=== PATIENT | female | born 1965 | race Caucasian/White ===

== ENCOUNTER → 2017-01-24 | Outpatient (REF) | payer BC ==
[~2017-01-24] MED LIST: CYTO5TAB8 PO; LEVO175T2 PO; LIOT25TA PO
[2017-01-24 15:23] LABS: FREE T4 1.17 NG/DL (0.76-1.46)
== END ==
LOC: M LABDRAW1 13:20
PROVIDERS: ATTEND Physician Assistant Medical
DX: E89.0 Postprocedural hypothyroidism (principal)

== ENCOUNTER 2017-03-06 06:34 | Outpatient (CLI) | payer BC ==
[~2017-03-06] VITALS: Ht 165.1 cm; Wt 72.6 kg
[2017-03-06] MEDS ORDERED: NS 1,000 ML IV SCH (06:45)
--- NOTE | 2017-03-06 08:01 | ROOR ---
Patient Name: Zohra Richardson Procedure Date: 03/06/2017 7:30 AM Date of : 1965 Age: 51 Room: [facility] Gender: Female Note Status: Finalized Procedure: Total Colonoscopy to Cecum + Cold Snare Polypectomy + Hemoclip Indications: Screening for colorectal malignant neoplasm Providers: Chino Sims MD Referring MD: DUNCAN ERVIN MD Requesting Provider: Medicines: Monitored Anesthesia Care Complications: No immediate complications. Procedure: Pre-Anesthesia Assessment: - The heart rate, respiratory rate, oxygen saturations, blood pressure, adequacy of pulmonary ventilation, and response to care were monitored throughout the procedure. The Colonoscope was introduced through the anus and advanced to the cecum, identified by appendiceal orifice and ileocecal valve. The colonoscopy was performed without difficulty. The patient tolerated the procedure well. The quality of the bowel preparation was fair. Findings: The perianal and digital rectal examinations were normal. A small polyp was found at 30 cm proximal to the anus. The polyp was sessile. The polyp was removed with a cold snare. Resection and retrieval were complete. To prevent bleeding after the polypectomy, one hemostatic clip was successfully placed (MR conditional). There was no bleeding at the end of the procedure. The exam was otherwise without abnormality on direct and retroflexion views. Impression: - Preparation of the colon was fair. - One small polyp at 30 cm proximal to the anus, removed with a cold snare. Resected and retrieved. Clip (MR conditional) was placed. - The examination was otherwise normal on direct and retroflexion views. - The exam was otherwise normal to the cecum. Recommendation: - Patient has a contact number available for emergencies. The signs and symptoms of potential delayed complications were discussed with the patient. Return to normal activities tomorrow. Written discharge instructions were provided to the patient. - High fiber diet. - Discharge patient to home. - Continue present medications. - Await pathology results. - Telephone GI clinic for pathology results in 1 week. - Repeat colonoscopy for surveillance based on pathology results. - Return to referring physician. - The findings and recommendations were discussed with the patient's family. Chino Sims MD Chino Sims MD 03/06/2017 8:00:56 AM This report has been signed electronically. Number of Addenda: 0 Note Initiated On: 03/06/2017 7:30 AM Estimated Blood Loss: Estimated blood loss: none.
[2017-03-06 08:15] VITALS: BP 123/60
[2017-03-06] MEDS ORDERED: PROPOFOL 200 MG/20 ML VIAL As Ordered ONE (08:23)
== END 2017-03-06 08:34 | disposition home or self-care (01) ==
LOC: M OPP 06:34
PROVIDERS: ATTEND Internal Medicine Gastroenterology
DX: Z12.11 Encounter for screening for malignant neoplasm of colon (principal); D12.5 Benign neoplasm of sigmoid colon; E03.9 Hypothyroidism, unspecified; Z78.0 Asymptomatic menopausal state; Z87.891 Personal history of nicotine dependence; Z79.899 Other long term (current) drug therapy

== ENCOUNTER → 2017-07-26 | Outpatient (REF) | payer BC ==
[2017-07-26 12:30] LABS: FREE T4 1.36 NG/DL (0.76-1.46); THYROID STIMULATING HORMONE 0.053 uIU/ML (0.358-3.740)
== END ==
LOC: M LABDRAW1 11:24
DX: E89.0 Postprocedural hypothyroidism (principal)
CPT/HCPCS: 84443

== ENCOUNTER → 2017-12-08 | Outpatient (REF) | payer BC ==
[2017-12-08 11:17] LABS: FREE T4 0.98 NG/DL (0.76-1.46); THYROID STIMULATING HORMONE 0.058 uIU/ML (0.358-3.740)
== END ==
LOC: M LABDRAW1 09:50
DX: E89.0 Postprocedural hypothyroidism (principal)
CPT/HCPCS: 84443

== ENCOUNTER 2019-12-30 08:55 | Inpatient (IN) | payer BC ==
[~2019-12-30 08:55] MED LIST changes: -LIOT25TA PO; +LIOT25TA8 PO
[2019-12-30] MEDS ORDERED: VANCOMYCIN 1000MG/20ML VIAL ONE (09:42)
[2019-12-30] MEDS ORDERED: VANCOMYCIN 500MG/10ML VIAL ONE (10:47)
[2019-12-30] MEDS ORDERED: ACETAMINOPHEN 500 MG TAB ONE (10:47)
[2019-12-30] MEDS ORDERED: ACETAMINOPHEN 500 MG TAB As Ordered ONE (21:32)
[2019-12-30] MEDS ORDERED: VANCOMYCIN 1000MG/20ML VIAL As Ordered ONE (21:42)
[2019-12-30] MEDS ORDERED: VIAL MATE ADAPTER XX ONE (22:47)
[2019-12-30] MEDS ORDERED: VANCOMYCIN 500MG/10ML VIAL As Ordered ONE (22:47)
[2019-12-31] MEDS ORDERED: ACETAMINOPHEN TAB 650MG DOSE (2X325MG) As Ordered ONE ×3 (05:41→18:59)
[2019-12-31] MEDS ORDERED: LEVOTHYROXINE 137MCG TABLET (0.137MG) ONE (08:00)
[2019-12-31] MEDS ORDERED: LIOTHYRONINE 25 MCG TAB ONE (08:00)
[2019-12-31] MEDS ORDERED: ceFAZolin 2 GM/D5W 50 ML IV BAG (J0690 PER 500MG) ONE ×3 (09:00→18:00)
[2019-12-31] MEDS ORDERED: ENOXAPARIN 40MG/0.4ML SYRINGE (J1650 PER 10MG) As Ordered ONE (10:04)
[2019-12-31] MEDS ORDERED: VANCOMYCIN 1000MG/20ML VIAL As Ordered ONE ×2 (18:58→23:32)
[2020-01-01] MEDS ORDERED: ACETAMINOPHEN TAB 650MG DOSE (2X325MG) ONE (03:31)
[2020-01-01] MEDS ORDERED: ACETAMINOPHEN TAB 650MG DOSE (2X325MG) As Ordered ONE ×2 (03:31→20:20)
[2020-01-01] MEDS ORDERED: LIOTHYRONINE 25 MCG TAB ONE (09:00)
[2020-01-01] MEDS ORDERED: VANCOMYCIN 1000MG/20ML VIAL ONE ×2 (09:29→16:29)
[2020-01-01] MEDS ORDERED: VANCOMYCIN 1000MG/20ML VIAL As Ordered ONE ×2 (09:29→16:29)
[2020-01-01] MEDS ORDERED: ENOXAPARIN 40MG/0.4ML SYRINGE (J1650 PER 10MG) As Ordered ONE (09:29)
[2020-01-01] MEDS ORDERED: ISOVUE-370 76% 100ML VIAL As Ordered ONE (10:58)
[2020-01-01] MEDS ORDERED: ENOXAPARIN 100MG/1ML SYRINGE (J1650 PER 10MG) ONE (13:31)
[2020-01-01] MEDS ORDERED: ENOXAPARIN 100MG/1ML SYRINGE (J1650 PER 10MG) As Ordered ONE (13:31)
[2020-01-01] MEDS ORDERED: SUCRALFATE SUSP 1GM/10ML UD ONE ×2 (16:29→20:19)
[2020-01-01] MEDS ORDERED: SUCRALFATE SUSP 1GM/10ML UD As Ordered ONE ×2 (16:47→20:20)
[2020-01-01] MEDS ORDERED: PANTOPRAZOLE 40MG TAB (PROTONIX) As Ordered ONE (20:19)
[2020-01-01] MEDS ORDERED: PANTOPRAZOLE 40MG TAB (PROTONIX) ONE (20:19)
[2020-01-02] MEDS ORDERED: PANTOPRAZOLE 40MG TAB (PROTONIX) ONE (09:13)
[2020-01-02] MEDS ORDERED: PANTOPRAZOLE 40MG TAB (PROTONIX) As Ordered ONE (09:13)
[2020-01-02] MEDS ORDERED: SUCRALFATE SUSP 1GM/10ML UD ONE (09:13)
[2020-01-02] MEDS ORDERED: SUCRALFATE SUSP 1GM/10ML UD As Ordered ONE (09:13)
[2020-01-02] MEDS ORDERED: ceFAZolin 2 GM/D5W 50 ML IV BAG (J0690 PER 500MG) ONE (09:59)
[2020-01-26 17:24] LABS: ALBUMIN 3.7 GM/DL (3.2-5.2); ALT/SGPT 22 U/L (12-78); BILIRUBIN,DIRECT < 0.1 MG/DL (0.0-0.2); BILIRUBIN,TOTAL 0.3 MG/DL (0.2-1.0); BLOOD UREA NITROGEN 12 MG/DL (7-18); C REACTIVE PROTEIN QUANTITATIV 0.88 MG/DL (0.00-0.30); CALCIUM LEVEL 9.6 MG/DL (8.5-10.1); CARBON DIOXIDE LEVEL 28 MEQ/L (21-32); CHLORIDE LEVEL 108 MEQ/L (98-107); CREATININE FOR GFR 0.92 MG/DL (0.55-1.30); GLOMERULAR FILTRATION RATE > 60.0 (>51); GLUCOSE, FASTING 97 MG/DL (70-100); POTASSIUM SERUM 4.7 MEQ/L (3.5-5.1); SODIUM LEVEL 141 MEQ/L (136-145); TOTAL PROTEIN 7.3 GM/DL (6.4-8.2)
[2020-02-07 03:11] LABS: BASO % 0.3 % (0.0-1.0); EOS % 0.1 % (0.0-3.0); HEMATOCRIT 40.5 % (36.0-47.0); HEMOGLOBIN 13.4 g/dl (12.0-15.5); LYMPH # 1.1 10^3/uL (1.5-5.0); LYMPH % 14.9 % (24.0-44.0); MEAN CORPUSCULAR HEMOGLOBIN 29.6 pg (27.0-33.0); MEAN CORPUSCULAR HGB CONC 33.1 g/dl (32.0-36.5); MEAN CORPUSCULAR VOLUME 89.6 fl (80.0-96.0); MONO # 0.8 10^3/uL (0.0-0.8); MONO % 10.8 % (0.0-5.0); NEUTROPHILS # 5.6 10^3/uL (1.5-8.5); NEUTROPHILS % 73.8 % (36.0-66.0); PLATELET COUNT, AUTOMATED 226 10^3/uL (150-450); RED BLOOD COUNT 4.52 10^6/uL (4.00-5.40); WHITE BLOOD COUNT 7.5 10^3/uL (4.0-10.0)
[2020-02-11 01:07] LABS: HEMATOCRIT 40.3 % (36.0-47.0); HEMOGLOBIN 13.4 g/dl (12.0-15.5); MEAN CORPUSCULAR HEMOGLOBIN 29.6 pg (27.0-33.0); MEAN CORPUSCULAR HGB CONC 33.3 g/dl (32.0-36.5); MEAN CORPUSCULAR VOLUME 89.2 fl (80.0-96.0); PLATELET COUNT, AUTOMATED 186 10^3/uL (150-450); RED BLOOD COUNT 4.52 10^6/uL (4.00-5.40); WHITE BLOOD COUNT 7.5 10^3/uL (4.0-10.0)
[2020-02-13 19:07] LABS: BLOOD UREA NITROGEN 9 MG/DL (7-18); CALCIUM LEVEL 8.9 MG/DL (8.5-10.1); CARBON DIOXIDE LEVEL 23 MEQ/L (21-32); CHLORIDE LEVEL 108 MEQ/L (98-107); CREATININE FOR GFR 0.86 MG/DL (0.55-1.30); GLOMERULAR FILTRATION RATE > 60.0 (>51); GLUCOSE, FASTING 103 MG/DL (70-100); SODIUM LEVEL 139 MEQ/L (136-145)
[2020-02-18 08:23] LABS: ERYTHROCYTE SEDIMENTATION RATE 6 mm/hr (0-30)
--- NOTE | 2020-02-24 08:43 | REP ---
CT OF THE LEFT LOWER LEG WITH IV CONTRAST: HISTORY: Persistent cellulitis. Rule out abscess. COMPARISON: None available. CONTRAST DOSE: 100 ml of intravenous Isovue 370. FINDINGS: Helical scanning shows no evidence of soft tissue gas, abscess, opaque foreign body or acute bony destructive lesion. No erosive change or periosteal reaction is seen. There is a zone of dermal thickening and edema posteriorly in the subcutaneous fat in the left calf consistent with cellulitis. IMPRESSION: Findings consistent with cellulitis. No abscess, soft tissue gas, opaque foreign body or acute bony abnormality is seen. MTDD
[2020-03-22 21:09] LABS: BLOOD UREA NITROGEN 9 MG/DL (7-18); CALCIUM LEVEL 8.8 MG/DL (8.5-10.1); CARBON DIOXIDE LEVEL 24 MEQ/L (21-32); CHLORIDE LEVEL 111 MEQ/L (98-107); CREATININE FOR GFR 0.75 MG/DL (0.55-1.30); GLOMERULAR FILTRATION RATE > 60.0 (>51); GLUCOSE, FASTING 135 MG/DL (70-100); POTASSIUM SERUM 3.8 MEQ/L (3.5-5.1); SODIUM LEVEL 141 MEQ/L (136-145); VANCOMYCIN LEVEL TROUGH 17.4 UG/ML (10.0-20.0)
== END 2020-01-02 10:25 | disposition home or self-care (01) | DRG 383 ==
LOC: M ED 08:55 → M ED INP 23:31
PROVIDERS: ADMIT Internal Medicine; ATTEND Internal Medicine
DX: L03.116 Cellulitis of left lower limb (principal); E03.9 Hypothyroidism, unspecified; Z79.899 Other long term (current) drug therapy

== ENCOUNTER 2020-05-04 09:12 | Day surgery (SDC) | payer BC ==
[~2020-05-04] VITALS: Ht 166.4 cm; Wt 78.8 kg
[~2020-05-04 09:12] MED LIST changes: +NS 1,000 ML IV ONE
[2020-05-04] MEDS ORDERED: propofoL 200 MG/20 ML VIAL As Ordered ONE ×3 (09:21→11:01)
[2020-05-04] MEDS ORDERED: LIDOCAINE 2% 100MG/5ML SDV (FOR ANES.) As Ordered ONE (10:36)
--- NOTE | 2020-05-04 11:11 | ROOR ---
Patient Name: Zohra Richardson Procedure Date: 05/04/2020 10:20 AM Date of : 1965 Age: 54 Room: [facility] Gender: Female Note Status: Finalized Procedure: Total Colonoscopy to Cecum + Cold Snare Polypectomy + Hemoclips Indications: Screening in patient at increased risk: Family history of 1st-degree relative with colorectal cancer, High risk colon cancer surveillance: Personal history of colonic polyps, Last colonoscopy: 2016 Providers: Chino Sims MD Referring MD: Patsy PACE MD Requesting Provider: Medicines: Monitored Anesthesia Care Complications: No immediate complications. Procedure: Pre-Anesthesia Assessment: - The heart rate, respiratory rate, oxygen saturations, blood pressure, adequacy of pulmonary ventilation, and response to care were monitored throughout the procedure. The Colonoscope was introduced through the anus and advanced to the cecum, identified by appendiceal orifice and ileocecal valve. The colonoscopy was performed without difficulty. The patient tolerated the procedure well. The quality of the bowel preparation was good. Findings: The perianal and digital rectal examinations were normal. Non-bleeding internal hemorrhoids were found during retroflexion. The hemorrhoids were small and Grade I (internal hemorrhoids that do not prolapse). A small polyp was found at 30 cm proximal to the anus. The polyp was sessile. The polyp was removed with a cold snare. Resection and retrieval were complete. To prevent bleeding after the polypectomy, one hemostatic clip was successfully placed (MR conditional). There was no bleeding at the end of the procedure. A small polyp was found in the cecum. The polyp was sessile. The polyp was removed with a cold snare. Resection and retrieval were complete. To prevent bleeding after the polypectomy, one hemostatic clip was successfully placed (MR conditional). There was no bleeding at the end of the procedure. A large polyp was found in the proximal transverse colon. The polyp was sessile. The polyp was removed with a cold snare. Resection and retrieval were complete. To prevent bleeding after the polypectomy, five hemostatic clips were successfully placed (MR conditional). There was no bleeding at the end of the procedure. A small polyp was found in the hepatic flexure. The polyp was sessile. The polyp was removed with a cold snare. Resection and retrieval were complete. To prevent bleeding after the polypectomy, one hemostatic clip was successfully placed (MR conditional). There was no bleeding at the end of the procedure. The exam was otherwise without abnormality on direct and retroflexion views. Impression: - Non-bleeding internal hemorrhoids. - One small polyp at 30 cm proximal to the anus, removed with a cold snare. Resected and retrieved. Clip (MR conditional) was placed. - One small polyp in the cecum, removed with a cold snare. Resected and retrieved. Clip (MR conditional) was placed. - One large polyp in the proximal transverse colon, removed with a cold snare. Resected and retrieved. Clips (MR conditional) were placed. - One small polyp at the hepatic flexure, removed with a cold snare. Resected and retrieved. Clip (MR conditional) was placed. - The examination was otherwise normal on direct and retroflexion views. - The exam was otherwise normal to the cecum. Recommendation: - Patient has a contact number available for emergencies. The signs and symptoms of potential delayed complications were discussed with the patient. Return to normal activities tomorrow. Written discharge instructions were provided to the patient. - High fiber diet. - Discharge patient to home. - Continue present medications. - Await pathology results. - Telephone GI clinic for pathology results in 1 week. - Repeat colonoscopy in 1 year for surveillance based on pathology results. - Return to referring physician. - The findings and recommendations were discussed with the patient. Procedure Code(s): --- Professional --- 33252, Colonoscopy, flexible; with removal of tumor(s), polyp(s), or other lesion(s) by snare technique Diagnosis Code(s): --- Professional --- Z80.0, Family history of malignant neoplasm of digestive organs Z86.010, Personal history of colonic polyps K64.0, First degree hemorrhoids K63.5, Polyp of colon CPT copyright 2019 [employer]. All rights reserved. The codes documented in this report are preliminary and upon cellulose insulation helper review may be revised to meet current compliance requirements. Chino Sims MD Chino Sims MD 05/04/2020 11:11:35 AM Electronically signed by Chino Sims MD Number of Addenda: 0 Note Initiated On: 05/04/2020 10:20 AM Estimated Blood Loss: Estimated blood loss: none.
[2020-05-04 11:30] VITALS: BP 111/54
== END 2020-05-04 11:39 | disposition home or self-care (01) ==
LOC: M OPP 09:12
PROVIDERS: ATTEND Internal Medicine Gastroenterology
DX: Z12.11 Encounter for screening for malignant neoplasm of colon (principal); Z86.010 Personal history of colon polyps; Z80.0 Family history of malignant neoplasm of digestive organs; D12.6 Benign neoplasm of colon, unspecified; K64.0 First degree hemorrhoids; E03.9 Hypothyroidism, unspecified; Z79.899 Other long term (current) drug therapy
CPT/HCPCS: 45385; 88305; U0002

== ENCOUNTER → 2020-05-12 | Outpatient (CLI) | payer BC ==
[~2020-05-12] MED LIST changes: -NS 1,000 ML IV ONE
[2020-05-12 10:53] LABS: FREE T4 0.9 NG/DL (0.76-1.46); THYROID STIMULATING HORMONE 0.674 uIU/ML (0.358-3.740)
== END ==
LOC: M PLALAB 09:00
PROVIDERS: ATTEND Internal Medicine Endocrinology, Diabetes & Metabolism
DX: E89.0 Postprocedural hypothyroidism (principal)

== ENCOUNTER → 2020-11-22 | Outpatient (CLI) | payer BC ==
[~2020-11-22] MED LIST changes: +CYTO25TA6 PO; +SYNT137T7 PO
== END ==
LOC: M LABSMTC 09:56
PROVIDERS: ATTEND Anesthesiology
DX: Z01.818 Encounter for other preprocedural examination (principal); Z11.52 Encounter for screening for COVID-19

== ENCOUNTER 2020-11-27 09:45 | Day surgery (SDC) | payer BC ==
[~2020-11-27] VITALS: Ht 166.6 cm; Wt 70.7 kg
[~2020-11-27 09:45] MED LIST changes: +NS 1,000 ML IV ONE
[2020-11-27] MEDS ORDERED: LIDOCAINE 2% 100MG/5ML SDV (FOR ANES.) As Ordered ONE (11:26)
[2020-11-27] MEDS ORDERED: propofoL 200 MG/20 ML VIAL As Ordered ONE ×2 (11:26→11:36)
--- NOTE | 2020-11-27 11:50 | ROOR ---
Patient Name: Zohra Richardson Procedure Date: 11/27/2020 11:14 AM Date of : 1965 Age: 54 Room: [facility] Gender: Female Note Status: Finalized Procedure: Total Colonoscopy to Cecum + Cold Snare Polypectomy + Hemoclips Indications: High risk colon cancer surveillance: Personal history of colonic polyps, High risk colon cancer surveillance: Personal history of adenoma with villous component Providers: Chino Sims MD Referring MD: Patsy PACE MD Requesting Provider: Medicines: Monitored Anesthesia Care Complications: No immediate complications. Procedure: Pre-Anesthesia Assessment: - The heart rate, respiratory rate, oxygen saturations, blood pressure, adequacy of pulmonary ventilation, and response to care were monitored throughout the procedure. The Colonoscope was introduced through the anus and advanced to the terminal ileum, with identification of the appendiceal orifice and IC valve. The colonoscopy was performed without difficulty. The patient tolerated the procedure well. The quality of the bowel preparation was excellent. Findings: The perianal and digital rectal examinations were normal. Non-bleeding internal hemorrhoids were found during retroflexion. The hemorrhoids were small and Grade I (internal hemorrhoids that do not prolapse). A small polyp was found in the ascending colon. The polyp was sessile. The polyp was removed with a jumbo cold forceps. Resection and retrieval were complete. A large polyp was found in the proximal transverse colon. The polyp was sessile. The polyp was removed with a cold snare. Resection and retrieval were complete. To prevent bleeding after the polypectomy, three hemostatic clips were successfully placed (MR conditional). There was no bleeding at the end of the procedure. Two sessile polyps were found at 20 cm proximal to the anus. The polyps were small in size. These polyps were removed with a jumbo cold forceps. Resection and retrieval were complete. The exam was otherwise without abnormality on direct and retroflexion views. Impression: - Non-bleeding internal hemorrhoids. - One small polyp in the ascending colon, removed with a jumbo cold forceps. Resected and retrieved. - One large polyp in the proximal transverse colon, removed with a cold snare. Resected and retrieved. Clips (MR conditional) were placed. - Two small polyps at 20 cm proximal to the anus, removed with a jumbo cold forceps. Resected and retrieved. - The examination was otherwise normal on direct and retroflexion views. - The exam was otherwise normal to the cecum. Recommendation: - Patient has a contact number available for emergencies. The signs and symptoms of potential delayed complications were discussed with the patient. Return to normal activities tomorrow. Written discharge instructions were provided to the patient. - High fiber diet. - Discharge patient to home. - Continue present medications. - Await pathology results. - Telephone GI clinic for pathology results in 1 week. - Repeat colonoscopy for surveillance based on pathology results. - Return to referring physician. - The findings and recommendations were discussed with the patient's family. Procedure Code(s): --- Professional --- 86148, Colonoscopy, flexible; with removal of tumor(s), polyp(s), or other lesion(s) by snare technique 79421, 59, Colonoscopy, flexible; with biopsy, single or multiple Diagnosis Code(s): --- Professional --- K64.0, First degree hemorrhoids K63.5, Polyp of colon Z86.010, Personal history of colonic polyps CPT copyright 2019 [employer]. All rights reserved. The codes documented in this report are preliminary and upon coder operator review may be revised to meet current compliance requirements. Chino Sims MD Chino Sims MD 11/27/2020 11:50:06 AM Electronically signed by Chino Sims MD Number of Addenda: 0 Note Initiated On: 11/27/2020 11:14 AM Estimated Blood Loss: Estimated blood loss: none.
[2020-11-27 12:10] VITALS: BP 111/69
== END 2020-11-27 12:20 | disposition home or self-care (01) ==
LOC: M OPP 09:45
PROVIDERS: ATTEND Internal Medicine Gastroenterology
DX: Z12.11 Encounter for screening for malignant neoplasm of colon (principal); Z86.010 Personal history of colon polyps; Z80.0 Family history of malignant neoplasm of digestive organs; K63.5 Polyp of colon; K64.0 First degree hemorrhoids; Z79.899 Other long term (current) drug therapy; Z87.891 Personal history of nicotine dependence

== ENCOUNTER → 2021-03-22 | Outpatient (CLI) | payer BC ==
[~2021-03-22] MED LIST changes: -NS 1,000 ML IV ONE
[2021-03-22 14:12] LABS: FREE T4 0.93 NG/DL (0.76-1.46); THYROID STIMULATING HORMONE 0.047 uIU/ML (0.358-3.740)
== END ==
LOC: M PLALAB 09:18
PROVIDERS: ATTEND Nurse Practitioner Family
DX: E89.0 Postprocedural hypothyroidism (principal)

== ENCOUNTER → 2021-03-22 | Outpatient (CLI) | payer BC | LOC: M PLALAB 09:21 | PROVIDERS: ATTEND Student in an Organized Health Care Education/Training Program | DX: D50.9 Iron deficiency anemia, unspecified (principal) ==

== ENCOUNTER → 2021-04-16 | Outpatient (CLI) | payer BC ==
[~2021-04-16] MED LIST changes: +OMEP-221 PO
== END ==
LOC: M LABSMTC 12:11
PROVIDERS: ATTEND Anesthesiology
DX: Z01.818 Encounter for other preprocedural examination (principal); Z11.52 Encounter for screening for COVID-19

== ENCOUNTER 2021-04-21 11:59 | Day surgery (SDC) | payer BC ==
[~2021-04-21] VITALS: Ht 165.1 cm; Wt 75.3 kg
[~2021-04-21 11:59] MED LIST changes: +NS 1,000 ML IV ONE
--- OUTSIDE RECORDS SUMMARY | 2021-04-21 12:05 | CCD ---
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 Name Role Phone Gurmeet NAVARRO, Vanessa Unavailable [phone] Gisselle NAVARRO, Patsy [place] PP [phone] Reason for Referral No Reason for Referral Recorded Problems Includes: Active, inactive, and resolved Problems All Visits Onset Date - Time Resolved Date - Time Provider Co ndition Status Hypothyroidism 02/05/2020 - 2:41PM Patsy Pitts MD Active Note: Grave's disease, s/p r adioactive iodine, now hypothyroid Polyps Colon 02/05/2020 - 2:56PM Patsy Pitts MD A ctive Vaginitis Atrophic 02/05/2020 - 2:56PM Patsy ortiz MD Active Plan of Treatment Pending Tests Order Diagnosis Results Due Ordering Provi flynn Outside Labs Vit B12 Anemia, unspecified 03/18/21 Silvia almaraz [employer]ER PAD-C Future Appointments Date Time Location Provider followup 04/16/2021 9:00AM [facility] Silvia [place] [employer] ANNUAL PE-followup 05/11/2021 3:20PM [facility] Silvia [place] [employer] PAD-C Assessments Includes: Assessments for all patient encounters Findings Encounter Date Anemia CBC and CMP Problem visit - not contagious with Anjana BUSTAMANTEP-C 03/11/2021 Pancreatitis which is being considered pain has come and gone x 6 months with no acute excruciating pain. amylase and lipase Problem visit - not contagious with Silvia COLLINSC 03/11/2021 Peripheral neuropathy Hgb A1c to be drawn Problem vis it - not contagious with Silvia COLLINSC 03/11/2021 Atrophic vaginitis which is stable continue estradiol cream [Acute vaginitis] ANNUAL PE-followup exam/30 with Patsy Pitts MD 05/08/2020 Hypothyroidism which is stable Continue management per Dr. Levi. Assessment done by Silvia COLLINSS and Dr. Pitts RTC in 1 year for annual exam with fasting labs prior [Other specified hypothyroidism] ANNUAL PE-followup exam/30 with Patsy Pitts MD 05/08/2020 Polyps of colon Following with Dr. Kaleigh aragon, yearly colonoscopy [Polyp of colon] ANNUAL PE-followup exam/30 with Patsy Pitts MD Routine adult history and physical (18 - 64 yrs) Requests derm referral today, was previously following with group in [place] and would like to see them now in [place] [Encounter for general adult medical examination without abnormal findings] ANNUAL PE-followup exam/30 with Patsy Pitts MD Routine gynecological exam pap obtained today [Encounter for gynecological examination (general) (routine) without abnormal findings] ANNUAL PE-followup exam/30 with Patsy Pitts MD 05/08/2020 Atrophic vaginitis continue estradiol cream [Acute va ginitis] followup with Patsy Pitts MD 02/05/2020 Hypothyroidism Continue management per Dr. Levi. RTC in 3 months for annual exam with pap, fasting labs prior [Other specified hypothyroidism] followup with Patsy Pitts MD 02/05/2020 Polyps of colon Will refer to Dr. Levi pereyra for colonoscopy. Last colonoscopy 2017 [Polyp of colon] followup with Patsy Pitts MD 02/05/2020 Cellulitis of left lower leg , resolving . Was hospitalized at [facility] for 4 days on IV antibiotics. Have not recieved records as [facility] system is down and patient is unsure if it was MRSA or otherwise. She states they didn't seem to know or at least didn't tell her despite her asking. Currently infection is resolved with some leftover crusting at drainage sight. She is set to finish up her antibiotic this Monday. She will be establishing in our office with Dr Pitts when her records are received. Follow up as needed, monitor for signs of infection Transitional Care Management HIGH complexity with Elie Ruiz PA-C 01/07/2020 Instructions Instructions not supported for this document typeNo Instructions Recorded Medical Equipment - Implanted Devices Includes: Current and historical DevicesNo Medical Equipment Recorded Medications Includes: Current and historical Medications Current Medications (continue as prescribed) Estradiol 0.1 MG/GM Vaginal Cream 02/05/2020 Provid er: Patsy Pitts MD Diagnosis: Insert 2g daily intravaginally for 1 wee ks, then gradually reduce to 1g for 1 week, then a maintenance dose of 1 g 1 to 3 times per week Liothyronine Sodium 25 MCG Oral Tablet 01/15/2020 P rovider: Liane Lobo LEAN FACILITATOR Diagnosis: Levothyroxine Sodium 137 MCG Oral Tablet 01/15/2020 Provider: Liane Lobo LEAN FACILITATOR Diagnosis: Medications Administered Includes: Administered Medications in patient's chartNo Administered Medications Recorded Vital Signs Includes: Vital Signs from 03/16/2020 through 03/16/2021 Vital Name 03/12/2021 08:47A 03/11/2021 03:27P 03/11/2021 03:22P 05/08/2020 02:39P Blood Pressure Sitting (mmHg) 148/78 170/92 122/78 Pulse Rate-Sitting (bpm) 78 60 56 Height (in) 63 63 63 Weight (lb) 167 171 Body Mass Index (kg/m2) 29.6 30.3 Body Surface Area (m2) 1.79 1.81 Results Includes: Results from 03/16/2020 through 03/16/2021 CBC [facility] Ordered by Silvia SANCHEZ on 03/12/[address] [place] [address], [address] Collected: 03/12/2021 Reported: 03/12/2021 13:24 tel : ext. 1500 GRAN# 4.0 /mm3 (2.5-7.5) None Note: Responsible Observer: KM GRAN% 74.1 % (50.0-75.0) None Note: Responsible Observer: KM HCT 36.7 % (37-47) L (Low) Note: Responsible Observer: KM HGB 11.9 g/dl (12.0-17.4) L (Low) Note: Responsible Observer: KM LY# 1.1 /mm3 (1.3-4.0) L (Low) Note: Responsible Observer: KM LY% 19.6 % (25-40.0) L (Low) Note: Responsible Observer: KM MCH 26.5 pg (27.0-34.0) L (Low) Note: Responsible Observer: KM MCHC 32.3 G/DL (30.0-35.0) None Note: Responsible Observer: KM MCV 82.1 um3 (76.0-94.0) None Note: Responsible Observer: KM MID# 0.3 /mm3 (0.1-0.7) None Note: Responsible Observer: KM MID% 6.3 % (3.0-7.0) None Note: Responsible Observer: KM MPV 10.4 um3 (8.0-15.0) None Note: Responsible Observer: KM PLT 232 /mm3 (150-440) None Note: Responsible Observer: KM RBC 4.48 /mm3 (4.00-5.50) None Note: Responsible Observer: KM RDW 18.3 % (13.0-15.0) H (High) Note: Responsible Observer: KM WBC 5.4 /mm3 (4.0-10.0) None Note: Responsible Observer: KM Reviewed by Silvia SANCHEZ on 2020; All test results are final unless otherwise noted. [facility] In-house [facility] Ordered by Silvia SANCHEZ on 03/12/[address] [place] [address], [facility] Collected: 03/12/2021 Reported: 03/12/2021 13:24 tel : ext. 1500 Albumin 3.8 g/dl (3.4-5.0) None Note: Responsible Observer: KM Alkaline Phos 78 IU/L (39-117) None Note: Responsible Observer: KM ALT 13 IU/L (4-40) None Note: Responsible Observer: KM AST 15 IU/L (4-37) None Note: Responsible Observer: KM Urea Nitrogen 12 mg/dl (6-20) None Note: Responsible Observer: KM Calcium 9.1 mg/dl (8.6-10.3) None Note: Responsible Observer: KM Chloride 107 mmol/L (96-108) None Note: Responsible Observer: KM CO2 23 mmol/L (23-31) None Note: Responsible Observer: KM Creatinine 0.6 mg/dl (0.5-1.2) None Note: Responsible Observer: KM EGFR - AfricanAm > 60 N/A (-) None Note: Responsible Observer: KM EGFR - Non AF AM > 60 N/A (-) None Note: Responsible Observer: KM Glucose 111 mg/dl (70-105) H (High) Note: Responsible Observer: KM Potassium 4.5 mmol/L (3.2-5.4) None Note: Responsible Observer: KM Sodium 142 mmol/L (133-145) None Note: Responsible Observer: KM Total Bilirubin 0.3 mg/dl (0.0-1.2) None Note: Responsible Observer: KM Total Protein 6.5 g/dl (6.0-8.0) None Note: Responsible Observer: KM Reviewed by Silvia SANCHEZ on 2020; All test results are final unless otherwise noted. Lipid Panel [facility] Ordered by Silvia SANCHEZ on 03/12/[address] [place] [address], [address] Collected: 03/12/2021 Reported: 03/12/2021 13:24 tel :[phone] ext. 1500 Cholesterol 222 mg/dl (135-200) H (High) Note: Responsible Observer: KM Dir. LDL 121 mg/dl (50-150) None Note: Responsible Observer: KM HDL 70 mg/dl (35-55) H (High) Note: Responsible Observer: KM Triglycerides 130 mg/dl (40-150) None Note: Responsible Observer: KM Reviewed by Silvia SANCHEZ on 2020; All test results are final unless otherwise noted. Hgba1c [facility] Ordered by Silvia SANCHEZ on 03/12/[address] [place] [address], [address] Collected: 03/12/2021 Reported: 03/12/2021 13:24 tel :[phone] ext. 1500 Hgba1c 5.5 na (5.0-6.0) None Note: Responsible Observer: KM Reviewed by Silvia SANCHEZ on 2020; All test results are final unless otherwise noted. TSH [facility] Ordered by Silvia SANCHEZ on 03/12/[address] [place] [address], [address] Collected: 03/12/2021 Reported: 03/12/2021 13:24 tel :[phone] ext. 1500 TSH L uIu/mL (0.5-5.8) L (Low) Note: Test Comment : Flagged as Linear L owResponsible Observer: KM Reviewed by Silvia SANCHEZ on 2020; All test results are final unless otherwise noted. Urine culture [facility] Ordered by Marv Anaya MD on 07/27/2020 Collected: 07/27/2020 Reported: 07/28/2020 13:16 Bacteria Ur Cult See Note None Note: NGNo growth.L1NG Reviewed on 07/29/2020; All test result s are final unless otherwise noted. Reported Physicians [facility] Ordered by Marv Anaya MD on 07/27/2020 Collected: 07/27/2020 Reported: 07/28/2020 13:16 Reported Physicians See Note None Note: Reported Physicians:Ordering: Marv Seamanding: Marv Anaya Reviewed on 07/29/2020; All test result s are final unless otherwise noted. HPVHR [facility] Ordered by Patsy Pitts MD on 05/08/2020 Collected: 05/08/2020 Reported: 05/18/2020 08:23 Thin Prep Cvx See Note None Note: See scanned reportSee scanned repo rtLSee scanned reportResponsible Observer: PAP/HPV -[place] + PAP w HPV-Genotype if Positive 200814 [phone] (LCI) NOTES See Note None Note: [id number] Technique: BR USH-SPATULAPREVIOUS CYTOLOGY: NEGATIVEBody Site: ENDOCERVIX Reviewed by Patsy Pitts MD on 05/18; All test results are final unless otherwise noted. Reported Physicians [facility] Ordered by Patsy Pitts MD on 05/08/2020 Collected: 05/08/2020 Reported: 05/18/2020 08:23 Reported Physicians See Note None Note: Reported Physicians:Ordering: Patsy GandaraAttending: Ayah Pitts To: Patsy Pitts Reviewed by Patsy Pitts MD on 05/18; All test results are final unless otherwise noted. CMP [facility] Ordered by Patsy Pitts MD on 05/08/2020 [address] [place], [address] Collected: 05/08/2020 Reported: 05/08/2020 14:09 tel : ext. 1500 Albumin 4.3 g/dl (3.4-5.0) None Note: Responsible Observer: KM Alkaline Phos 73 IU/L (39-117) None Note: Responsible Observer: KM ALT 15 IU/L (4-40) None Note: Responsible Observer: KM AST 16 IU/L (4-37) None Note: Responsible Observer: KM Urea Nitrogen 11 mg/dl (6-20) None Note: Responsible Observer: KM Calcium 10.2 mg/dl (8.4-10.2) None Note: Responsible Observer: KM Chloride 100 mmol/L (96-108) None Note: Responsible Observer: KM CO2 27 mmol/L (23-31) None Note: Responsible Observer: KM Creatinine 0.7 mg/dl (0.5-1.2) None Note: Responsible Observer: KM EGFR - AfricanAm > 60 N/A (-) None Note: Responsible Observer: KM EGFR - Non AF AM > 60 N/A (-) None Note: Responsible Observer: KM Glucose 88 mg/dl (70-105) None Note: Responsible Observer: KM Potassium 4.9 mmol/L (3.2-5.4) None Note: Responsible Observer: KM Sodium 140 mmol/L (133-145) None Note: Responsible Observer: KM Total Bilirubin 0.5 mg/dl (0.0-1.2) None Note: Responsible Observer: KM Total Protein 7 g/dl (6.0-8.0) None Note: Responsible Observer: KM Reviewed by Patsy Pitts MD on 05/08; All test results are final unless otherwise noted. Lipid Panel [facility] Ordered by Patsy Pitts MD on 05/08/2020 [address] [place], [address] Collected: 05/08/2020 Reported: 05/08/2020 14:09 tel :[phone] ext. 1500 Cholesterol 210 mg/dl (135-200) H (High) Note: Responsible Observer: KM Dir. LDL 123 mg/dl (50-150) None Note: Responsible Observer: KM HDL 61 mg/dl (35-55) H (High) Note: Responsible Observer: KM Triglycerides 60 mg/dl (40-150) None Note: Responsible Observer: KM Reviewed by Patsy Pitts MD on 05/08; All test results are final unless otherwise noted. Urinalysis w/out microscopy Office Lab Ordered by Marv Anaya MD on [address] [place], [address] Specimen Source: Urine Collected: Reported: 2020 13:50 tel:[phone] bilirubin Negative (neg) N (Normal) blood Negative (neg) N (Normal) glucose Negative (neg) N (Normal) ketone Large (neg) A (Abnormal) leukocytes Negative N (Normal) nitrites Negative (neg) N (Normal) pH 5.0 (5.0-8.5) N (Normal) protein Negative (neg-trace) N (Normal) specific gravity 1.015 (1.005-1.025) N (Normal) urobilinogen .2 (.2-1) N (Normal) Reviewed by Marv Anaya MD on 07/27/2020; All test results are final unless otherwise noted. 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 Procedures and Surgical History Includes: Procedures from 03/16/2020 through 03/16/2021 Procedures Code Diagnosis Performing Provider Service Location Service Date HgbA1C 41581 Anemia, unspecified, Other chronic pancreatitis, Hereditary and idiopathic neuropathy, unspecified, Hypothyroidism, unspecified Silvia BUSTAMANTEP-C [facility], [facility] 03/12/2021 Fasting Lipid Profile 18374 Anemia, unspecifie d, Other chronic pancreatitis, Hereditary and idiopathic neuropathy, unspecified, Hypothyroidism, unspecified Silvianuria [place] [facility], [facility] 03/12/2021 General Health Panel( CMP, CBC, TSH) 89681 Ane derrick, unspecified, Other chronic pancreatitis, Hereditary and idiopathic neuropathy, unspecified, Hypothyroidism, unspecified [facility], [facility] 021 Venipuncture (routine) 43487 Anemia, unspecifi ed, Other chronic pancreatitis, Hereditary and idiopathic neuropathy, unspecified, Hypothyroidism, unspecified [facility], [facility] 03/12/2021 ADMINISTRATION 2+ IMMUNIZATION (adult) 32507 Encounter for immunization [facility], [facility] 03/11/2021 Shingrix Vaccine(50-64 yr old) 70594 Encounter for imm unization [facility], [facility] 03/11/2021 ADMINISTRATION 1-IMMUNIZATION(adult) 35451 Encounter f or immunization [facility], [facility] 03/11/2021 FLUZONE/ multi-dose ( 6mos -older) 82816 Encounter for immunization [facility], [facility] 03/11/2021 Urinalysis w/o Microscopy 89092 Chronic bladder pain Marv Anaya MD [facility], [facility] 07/27/2020 Fasting Lipid Profile 21266 Postprocedural hyp othyroidism, Encounter for screening for lipid disorders [facility] 05/08/2020 CMP-Complete Metabolic Profile 16707 Postproce dural hypothyroidism, Encounter for screening for lipid disorders Patsy Pitts MD [facility], [facility] 05/08/2020 ADMINISTRATION 1-IMMUNIZATION(adult) 18716 Encounter f or immunization Patsy Pitts MD [facility], [facility] 05/08/2020 FLUZONE/ multi-dose ( 6mos -older) (Distinct Seperate servic e-same day) 72659 Encounter for immunization Patsy Pitts MD [facility], [facility] 05/08/2020 pelvic exam & Breast check G0101 Encntr for gy n exam (general) (routine) w/o abn findings Patsy Pitts MD [facility], [facility] 020 pap smear colllection Q0091 Encounter for scre ening for malignant neoplasm of cervix Patsy Pitts MD [facility], [facility] 020 Brief Emotional Behavior Assessment 91279 Scre ening for Mental Health/Behavioral Disorder, Unspecified Patsy Pitts MD [facility], [facility] 05/08/2020 Venipuncture (routine) 81189 Postprocedural hy pothyroidism, Encounter for screening for lipid disorders [facility] Pitts [facility] 05/08/2020 Surgical History Last Updated Surgical / procedural history right carpal tunnel rel ease ~ x 2 02/05/2020 Medical History Includes: Medical History in patient's chart Description Last Updated Medical history pt states unable to giv e blood due to low H&H, does not know numbers 03/11/2021 History of colonoscopy 04/2020, multiple polyps, repe at in one year 05/08/2020 Past medical history ~ x 2 ~Menarche: age 10 ~Menopause: age 48 02/05/2020 Family History Includes: Family History in patient's chart Description Last Updated Children daughter: sever bipolar disorder ~son: cycli c vomiting syndrome 02/05/2020 Siblings 2 sisters- colon polyps precan cerous ~sister: polymyositis, breast cancer diagnosed at age 45 02/05/2020 Aunts and uncles maternal aunt colon cancer 0 Father health status was reviewed CAD, [place], CVA 2019 Mother health status was reviewed decea sed from colon cancer, diagnosed at age 62 02/05/2020 Review of Systems Review of Systems not supported for this document typeNo Review of Systems Recorded Mental Status Mental Status not supported for this document typeNo Mental Status Recorded Functional Status Functional Status not supported for this document typeNo Functional Status Recorded Physical Exam Physical Exam not supported for this document typeNo Physical Exam Recorded Immunizations Includes: Immunizations in patient's chart Vaccine Dose # Date Site Reaction(s) Status Source Influenza, seasonal, injectable 1 05/08/2020 Right Deltoid Complete (Administered) [facility] Influenza, seasonal, injectable 2 03/11/2021 Left Deltoid Complete (Administered) [facility] Shingrix 1 03/11/2021 Left Deltoid Complete (Admini stered) [facility] Allergies Includes: Active, inactive, and resolved Allergies Substance Type Reaction Onset Date - Time Resolved Date - Ti me Status Codeine Intolerance Headache 02/05/2020 - 2:41PM Acti ve Encounters Includes: Encounters from 03/16/2020 through 03/16/2021 Encounter Provider Location Date Check-In Time Check-Out Time D iagnosis Telehealth communication Silvia CAVANAUGH- 03/16/202101/2021 8:33AM 03/12/2021 11:59PM nursing visit Patsy Ptits MD [facility], [facility] 03/12/2021 8:28AM 8:48AM Problem visit - not contagious Silvia [place] [facility], [facility] 03/11/2021 3:06PM 4:02PM Anemia, Pancreat itis, Peripheral Neuropathy nursing visit [facility] 07/27/2020 1:41PM 2:10PM ANNUAL PE-followup exam/30 Patsy Pitts MD [facility], [facility] 05/08/2020 2:29PM 3:20PM Hypothyroidism, Vagi nitis Atrophic, Polyps Colon, Routine History and Physical Adult (18 - 64 Yrs), Routine Gynecological Exam Insurance Includes: Active Insurance Policies Plan Name Member ID Group # Subscriber Relationship Effective Da estefany 1 - [facility]- [id number] Zohra K Young Self 05/05/2020 - Unknown Advance Directives Includes: Current Advance DirectivesNo Advance Directives Recorded Health Concerns Includes: Active Health ConcernsNo Active Health Concerns Recorded Goals Includes: Active GoalsNo Active Goals Recorded Interventions Includes: Interventions for active GoalsNo Interventions Recorded Evaluations & Outcomes Includes: Evaluations & Outcomes for active GoalsNo Outcomes Recorded
--- OUTSIDE RECORDS SUMMARY | 2021-04-21 12:05 | CCD ---
Continuity of Care Document (CCD) Created on: 03/29/2021 Zohra Richardson External Reference #: [id number] : [id number] Sex: Female Author Author Zohra MARQUEZ PUMP OPERATOR Organization Unknown Address [address] [place] [address] Phone [phone] Care Team Providers Care Medical Stenographer Name Role Phone Patsy Woodruff MD [facility] [phone] Problems Active Problems Provider Date Menopausal and postmenopausal disorders Karly Rodriguez PA-C Onset: 04/01/2014 Postablative hypothyroidism Vanessa Levi MD Onset: 09/21 Social History Type Date Description Comments Sex Unknown Cigarette Use denies cigarette use Tobacco Use Start: Unknown Patient has never smoked Smoking Status Reviewed: 03/29/21 Patient has never smoked Allergies and adverse reactions Description No Known Drug Allergies Medications Active Medications SIG Qnty Indications Ordering Provide r Date Liothyronine Sodium 25mcg Tablets take one tablet by mouth every day 90tabs Liane Marquez NP 02/22/2019 Levothyroxine Sodium 137mcg Tablet s take one tablet by mouth once daily, maximum daily dose = one tablet 90tabs E89.0 Liane Marquez NP 08/01/2017 Iron (Ferrous Sulfate) 325(65Fe) mg Tablets 1 tab by mouth once daily Unknown Immunizations Description No Information Available Vital Signs Date Vital Result Comment 03/29/2021 11:10am BP Systolic 152 mmHg BP Diastolic 90 mmHg Heart Rate 77 /min Height 65.3 inches 5'5.30" Weight 168.44 lb BMI (Body Mass Index) 27.8 kg/m2 O2 % BldC Oximetry 98 % 05/25/2020 8:34am BP Systolic 118 mmHg BP Diastolic 80 mmHg Heart Rate 60 /min Body Temperature 97.5 F Height 65.3 inches 5'5.30" Weight 173.50 lb BMI (Body Mass Index) 28.6 kg/m2 Results Test Acquired Date Facility Test Result H/L Range Note Laboratory test finding 03/22/2021 [facility] [address] [place] [address] (315)- - Vitamin B12 Level 621 pg/mL Normal 247-911 1 Laboratory test finding 03/22/2021 [facility] [address] [place] [address] (315)- - Thyroid Stimulating Hormone 0.047 uIU/ML Low 0.358- 3.740 Free T4 0.93 ng/dL Normal 0.76-1.46 1 VITAMIN B12 NORMAL RANGE NORMAL 247 - 911 PG/ML INDETERMINATE 211 - 246 PG/ML DEFICIENT LESS THAN 211 PG/ML Procedures Date Code Description Status 03/29/2021 80355 Office/Outpatient Established Lo w MDM 20-29 Min Completed Medical Devices Description No Information Available Encounters Type Date Location Provider Dx Diagnosis Office Visit 03/29/2021 11:15a DR. Vanessa Marquez, [place] P E89.0 Postprocedural hypothyroidism Assessments Date Code Description Provider 03/29/2021 E89.0 Postprocedural hypothyroidism Adenike Marquez NP Plan of Treatment Future Appointment(s):* 05/21/2021 4:00 pm - Vanessa Levi MD at DR. Vanessa Levi 03/29/2021 - Liane Maqruez NP* E89.0 Postprocedural hypothyroidism* New Labs:* FT4&TSH Panel, Scheduled: 03/07/22 * Comments:* I reviewed the patient's medical history. In September 2014 showed a TSH which was normal = 3.0, on levothyroxine 150 g a day and Cytomel 25 g a day. Her dose was raised to what was supposed to be 175 g a day however she ended up taking more due to an error in the sig line on the prescription. Her dose was then eventually weaned back to 175 g a day including 25 of Cytomel in addition. Repeat labs showed TSH = 0.058, free T4 = 0.49QtrgO4 is coming down from 1.3-0.9. TSH is probably low due to Cytomel. Current medications Cytomel 25mcg daily, Levothyroxine 137mcg daily.Pt feeling goodLabs done 05/12/2020- TSH= 0.674, FT4= 0.90 Labs done 03/22/21- TSH= 0.047, FT4= 0.93Have discussed lowering Liothyronine and increasing Levothyroxine. However pt feels good except for fatigue due to anemia. Continue sameRTO 12 months. Functional Status Description No Information Available Mental Status Description No Information Available Referrals Description No Information Available
--- OUTSIDE RECORDS SUMMARY | 2021-04-21 12:05 | CCD ---
Author Author [facility] Organization [facility] Address [address] [address] Phone Care Team Providers Care Entry Level Drafter Name Role Phone Gurmeet NAVARRO, Vanessa Unavailable [phone] Gisselle NAVARRO, Patsy [place] PP [phone] Reason for Referral No Reason for Referral [...] Results Due Ordering Provi flynn Outside Labs Amylase Other chronic pancreatitis 03/18/21 H fay BUSTAMANTEP-C Outside Labs Lipase Other chronic pancreatitis 03/18/21 H fay BUSTAMANTEP-C Lab A1C 04/11/21 Silvia BUSTAMANTE P-C Lab CBC 04/11/21 Silvia BUSTAMANTE P-C Lab CMP 04/11/21 Silvia BUSTAMANTE P-C Lab Lipid Panel 04/11/21 Silvia BUSTAMANTE P-C Lab TSH 04/11/21 Silvia BUSTAMANTE P-C Future Appointments Date Time Location Provider followup 03/26/2021 10:00AM [facility], [facility] Silvia BUSTAMANTEP-C ANNUAL PE-followup exam/30 05/11/2021 3:20PM [facility], P Silvia Jacquesnae [facility] Assessments Includes: Assessments for all patient encounters Findings Encounter Date Anemia CBC and CMP Problem visit - not contagious with Pedro Luisyany issa Tre DADO OPERATOR-C 03/11/2021 Pancreatitis which is being considered pain has come and gone x 6 months with no acute excruciating pain. amylase and lipase Problem visit - not contagious with Silvia Toledo DADO OPERATOR-C 03/11/2021 Peripheral neuropathy Hgb A1c to be drawn Problem vis it - not contagious with Silvia Toledo DADO OPERATOR-C 03/11/2021 Atrophic vaginitis which is stable continue estradiol cream [Acute vaginitis] ANNUAL PE-followup exam/30 with Patsy Pitts MD 05/08/2020 Hypothyroidism which is stable Continue management per Dr. Levi. Assessment done by Silvia CAVANAUGH-S and Dr. Pitts RTC in 1 year [...] today, was previously following with group in [place] and would like to see them now in [place] [Encounter for general adult medical examination without [...] Dr. Levi pereyra for colonoscopy. Last colonoscopy 2016 [Polyp of colon] followup with Patsy Pitts MD 02/05/2020 Cellulitis of left lower leg , resolving . Was hospitalized at [facility] for 4 days on IV antibiotics. Have not recieved records as [facility] system is down and patient is unsure [...] Oral Tablet 01/15/2020 P rovider: Liane Lobo MONUMENT LETTERER Diagnosis: Levothyroxine Sodium 137 MCG Oral Tablet 01/15/2020 Provider: Liane Lobo NP Diagnosis: Medications Administered Includes: Administered Medications in patient's chartNo Administered Medications Recorded Vital Signs Includes: Vital Signs from 03/12/2020 through 03/12/2021 Vital Name 03/12/2021 08:47A 03/11/2021 03:27P 03/11/2021 03:22P 05/08/2020 02:39P Blood Pressure Sitting (mmHg) 148/78 170/92 122/78 Pulse Rate-Sitting (bpm) 78 60 56 Height (in) 63 63 63 Weight (lb) 167 171 Body Mass Index (kg/m2) 29.6 30.3 Body Surface Area (m2) 1.79 1.81 Results Includes: Results from 03/12/2020 through 03/12/2021 Urine culture [facility] Ordered by Marv Anaya MD on 07/27/2020 Collected: 07/27/2020 Reported: 07/28/2020 13:16 Bacteria Ur Cult See Note None Note: NGNo growth.L1NG Reviewed on 07/29/2020; All test result s are final unless otherwise noted. Reported Physicians [facility] Ordered by Marv Anaya MD on 07/27/2020 Collected: 07/27/2020 Reported: 07/28/2020 13:16 Reported Physicians See Note None Note: Reported Physicians:Ordering: Marv Seaman LAttending: Marv Anaya Reviewed on 07/29/2020; All test result s are final unless otherwise noted. HPVHR [facility] Ordered by Patsy Pitts MD on 05/08/2020 Collected: 05/08/2020 Reported: 05/18/2020 08:23 Thin Prep Cvx See Note None Note: See scanned reportSee scanned repo rtLSee scanned reportResponsible Observer: PAP/HPV -[place] + PAP w HPV-Genotype if Positive [id number] [phone] ([facility]) NOTES See Note None Note: [id number] Technique: BR USH-SPATULAPREVIOUS CYTOLOGY: NEGATIVEBody Site: ENDOCERVIX Reviewed by Patsy Pitts MD on 05/18; All test results are final unless otherwise noted. Reported Physicians [facility] Ordered by Patsy Pitts MD on 05/08/2020 Collected: 05/08/2020 Reported: 05/18/2020 08:23 Reported Physicians See Note None Note: Reported Physicians:Ordering: Patsy GandaraAttending: Ayah Pitts To: Patsy Pitts Reviewed by Patsy Pitts MD on 05/18; All test results are final unless otherwise noted. CMP [facility] Ordered by Patsy Pitts MD on 05/08/2020 [address] [place], [address] Collected: 05/08/2020 Reported: 05/08/2020 14:09 tel : [...] Ordered by Patsy Pitts MD on 05/08/[address] [place] [address], [address] Collected: 05/08/2020 Reported: 05/08/2020 14:09 tel :[phone] Cholesterol 210 mg/dl (135-200) H [...] Ordered by Marv Anaya MD on [address] [place], [address] Specimen Source: Urine Collected: Reported: 2020 13:50 tel:[phone] bilirubin Negative (neg) N (Normal) blood Negative [...] 02/05/2020 Not using drugs 02/05/2020 Work history [employer] [facility] [employer] [facility] [employer] 02/05/2020 Procedures and Surgical History Includes: Procedures from 03/12/2020 through 03/12/2021 Procedures Code Diagnosis Performing Provider Service Location Service Date Urinalysis w/o Microscopy 03170 Chronic bladder pain Marv Anaya MD [facility], [facility] 07/27/2020 Venipuncture (routine) 96355 Postprocedural hy pothyroidism, Encounter for screening for lipid disorders [facility] 05/08/2020 Brief Emotional Behavior Assessment 26725 Scre ening for Mental Health/Behavioral Disorder, Unspecified Patsy Pitts MD [facility], [facility] 05/08/2020 pap smear colllection Q0091 Encounter for scre ening for malignant neoplasm of cervix Patsy Pitts MD [facility], [facility] 020 pelvic exam & Breast check G0101 Encntr for gy n exam (general) (routine) w/o abn findings Patsy Pitts MD [facility], [facility] 020 FLUZONE/ multi-dose ( 6mos -older) (Distinct Seperate servic e-same day) 67484 Encounter for immunization Patsy Pitts MD [facility], [facility] 05/08/2020 ADMINISTRATION 1-IMMUNIZATION(adult) 79131 Encounter f or immunization Patsy Pitts MD [facility], [facility] 05/08/2020 CMP-Complete Metabolic Profile 60444 Postproce dural hypothyroidism, Encounter for screening for lipid disorders Patsy Pitts MD [facility], [facility] 05/08/2020 Fasting Lipid Profile 97501 Postprocedural hyp othyroidism, Encounter for screening for lipid disorders [facility] 05/08/2020 Surgical History Last Updated Surgical / [...] 0 Father health status was reviewed CAD, [place], CVA 2019 Mother health status was reviewed [...] injectable 1 05/08/2020 Right Deltoid Complete (Administered) [facility] Influenza, seasonal, injectable 2 03/11/2021 Left Deltoid Complete (Administered) [facility] Shingrix 1 03/11/2021 Left Deltoid Complete (Admini stered) [facility] Allergies Includes: Active, inactive, and resolved Allergies Substance Type Reaction Onset Date - Time Resolved Date - Ti me Status Codeine Intolerance Headache 02/05/2020 - 2:41PM Acti ve Encounters Includes: Encounters from 03/12/2020 through 03/12/2021 Encounter Provider Location Date Check-In Time Check-Out Time D iagnosis nursing visit Patsy Pitts MD [facility], [facility] 03/12/2021 8:28AM 8:48AM Problem visit - not contagious Silvianuria Toledo DADO OPERATOR-C [facility], [facility] 03/11/2021 3:06PM 4:02PM Anemia, Pancreat itis, Peripheral Neuropathy nursing visit Marv Anaya MD [facility], [facility] 07/27/2020 1:41PM 2:10PM ANNUAL PE-followup exam/30 Patsy Pitts MD [facility], [facility] 05/08/2020 2:29PM 3:20PM Hypothyroidism, Vagi nitis Atrophic, Polyps Colon, Routine History and Physical Adult (18 - 64 Yrs), Routine Gynecological Exam Insurance Includes: Active Insurance Policies Plan Name Member ID Group # Subscriber Relationship Effective Da estefany 1 - [facility]- [id number] Zohra K Young Self 05/05/2020 - Unknown Advance Directives Includes: Current Advance DirectivesNo Advance Directives Recorded Health Concerns Includes: Active Health ConcernsNo Active Health Concerns Recorded Goals Includes: Active GoalsNo Active Goals Recorded Interventions Includes: Interventions for active GoalsNo Interventions Recorded Evaluations & Outcomes Includes: Evaluations & Outcomes for active GoalsNo Outcomes Recorded
--- OUTSIDE RECORDS SUMMARY | 2021-04-21 12:05 | CCD | Continuity of Care Document ---
Author Author Zohra MARQUEZ MANAGER EPIC Organization Unknown Address [address] [place] [address] Phone [phone] Care Team Providers Care Superintendent Ammunition Storage Name Role Phone Patsy Woodruff MD [facility] [phone] Problems Active Problems Provider Date Menopausal and postmenopausal disorders Karly Rodriguez PA-C Onset: 04/01/2014 Postablative hypothyroidism Vanessa Levi MD Onset: 09/21 Social History Type Date Description Comments Sex Unknown Cigarette Use denies cigarette use Tobacco Use Start: Unknown Patient has never smoked Smoking Status Reviewed: 05/25/20 Patient has never smoked Allergies and adverse reactions Description No Known Drug Allergies Medications Active Medications SIG Qnty Indications Ordering Provide r Date Liothyronine Sodium 25mcg Tablets take one tablet by mouth every day 90tabs Liane Marquez NP 02/22/2019 Levothyroxine Sodium 137mcg Tablet s take one tablet by mouth once daily, maximum daily dose = one tablet 90tabs E89.0 Liane Marquez NP 08/01/2017 Immunizations Description No Information Available Vital Signs Date Vital Result Comment 05/25/2020 8:34am BP Systolic 118 mmHg BP Diastolic 80 mmHg Heart Rate 60 /min Body Temperature 97.5 F Height 65.3 inches 5'5.30" Weight 173.50 lb BMI (Body Mass Index) 28.6 kg/m2 12/14/2017 2:24pm BP Systolic 110 mmHg BP Diastolic 70 mmHg Heart Rate 78 /min Height 65.3 inches 5'5.30" Weight 158.00 lb BMI (Body Mass Index) 26.0 kg/m2 Results Test Acquired Date Facility Test Result H/L Range Note Laboratory test finding 03/22/2021 [facility] [address] [place] [address] (315)- - Vitamin B12 Level 621 pg/mL Normal 247-911 1 Laboratory test finding 03/22/2021 [facility] [address] [place] [address] (315)- - Thyroid Stimulating Hormone 0.047 uIU/ML Low 0.358- 3.740 Free T4 0.93 ng/dL Normal 0.76-1.46 1 VITAMIN B12 NORMAL RANGE NORMAL 247 - 911 PG/ML INDETERMINATE 211 - 246 PG/ML DEFICIENT LESS THAN 211 PG/ML Procedures Description No Information Available Medical Devices Description No Information Available Encounters Description No Information Available Assessments Description No Information Available Plan of Treatment Future Appointment(s):* 03/29/2021 11:15 am - Liane Marquez NP at DR. Vanessa Levi * 05/21/2021 4:00 pm - Vanessa Levi MD at DR. Vanessa Levi 05/25/2020 - Liane Marquez NP* E89.0 Postprocedural hypothyroidism* Comments:* I reviewed the patient's medical history. [...] showed TSH = 0.058, free T4 = [id number] is coming down from 1.3-0.9. TSH is probably low due to Cytomel. Current medications Cytomel 25mcg daily, Levothyroxine 137mcg daily.Pt feeling goodLabs done 05/12/2020- TSH= 0.674, FT4= 0.90 Continue sameRTO 12 months. * Follow up:* 1 year CBF Functional Status Description No Information Available Mental Status Description No Information Available Referrals Description No Information Available
--- OUTSIDE RECORDS SUMMARY | 2021-04-21 12:05 | CCD | Continuity of Care Document ---
Author Author Zohra MARQUEZ OPERATIONS CHIEF Organization Unknown Address [address] [place] [address] Phone [phone] Care Team Providers Care Clam Bed Laborer Name Role Phone Patsy Woodruff MD [facility] [phone] Problems Active Problems Provider Date Menopausal and [...] H/L Range Note Laboratory test finding 03/22/2021 [facility] [address] [place] [address] (315)- - Vitamin B12 Level 621 pg/mL Normal 247-911 1 Laboratory test finding 03/22/2021 [facility] [address] [place] [address] (315)- - Thyroid Stimulating Hormone 0.047 uIU/ML [...] showed TSH = 0.058, free T4 = [id number] is coming down from 1.3-0.9. TSH is probably low due to Cytomel. Current medications Cytomel 25mcg daily, Levothyroxine 137mcg daily.Pt feeling goodLabs done 05/12/2020- TSH= 0.674, FT4= 0.90 Continue sameRTO 12 months. * Follow up:* 1 year CBF Functional Status Description No Information Available Mental Status Description No Information Available Referrals Description No Information Available
--- OUTSIDE RECORDS SUMMARY | 2021-04-21 12:05 | CCD | Continuity of Care Document ---
Author Author Zohra MARQUEZ GUZZLER BUILDER Organization Unknown Address [address] [place] [address] Phone [phone] Care Team Providers Care Victim Advocate Name Role Phone Patsy Woodruff MD [facility] [phone] Problems Active Problems Provider Date Menopausal and [...] H/L Range Note Laboratory test finding 03/22/2021 [facility] [address] [place] [address] (315)- - Vitamin B12 Level 621 pg/mL Normal 247-911 1 Laboratory test finding 03/22/2021 [facility] [address] [place] [address] (315)- - Thyroid Stimulating Hormone 0.047 uIU/ML Low 0.358- 3.740 Free T4 0.93 ng/dL Normal 0.76-1.46 1 VITAMIN B12 NORMAL RANGE NORMAL 247 - 911 PG/ML INDETERMINATE 211 - 246 PG/ML DEFICIENT LESS THAN 211 PG/ML Procedures Date Code Description Status 03/29/2021 57363 Office/Outpatient Established Lo w MDM 20-29 Min [...] at DR. Vanessa Levi 03/29/2021 - Liane Marquez NP* E89.0 Postprocedural hypothyroidism* New Labs:* FT4&TSH [...] showed TSH = 0.058, free T4 = [id number] is coming down from 1.3-0.9. TSH is [...]
--- OUTSIDE RECORDS SUMMARY | 2021-04-21 12:05 | CCD ---
Author Author [facility] Organization [facility] Address [address] [address] Phone Care Team Providers Care Principal Hardware Architect Name Role Phone Gurmeet NAVARRO, Vanessa Unavailable [phone] Gisselle NAVARRO, Patsy [place] PP [phone] Reason for Referral No Reason for Referral [...] Results Due Ordering Provi flynn Outside Labs Iron Iron deficiency anemia, unspecified 03/23 Silvia Toledo DRIVEWAY ATTENDANT-C Outside Labs Iron Binding Iron deficiency anemia, unspecified 03/23 Silvia Jacquese DRIVEWAY ATTENDANT-C Outside Labs Reticulocyte Count Iron deficiency anemia, unspecified 03/23/21 Silvia Toledo DRIVEWAY ATTENDANT-C Outside Labs Ferritin Iron deficiency anemia, unspecified 03/23 Silvia Toledo DRIVEWAY ATTENDANT-C Outside Labs Vit B12 Iron deficiency anemia, unspecified 03/26 Silvia Toledo DRIVEWAY ATTENDANT-C Future Appointments Date Time Location Provider followup 04/16/2021 9:00AM [facility], [facility] Silvia Toledo DRIVEWAY ATTENDANT-C ANNUAL PE-followup 05/11/2021 3:20PM [facility] Silvia Toledo DRIVEWAY ATTENDANT-C Future Tests Order Diagnosis Results Due Ordering Provid er Lab CBC 04/15/21 Silvianuria Toledo FN P-C Lab Send Out 04/15/21 Silvia Toledo FN P-C Assessments Includes: Assessments for all patient encounters Findings Encounter Date Fatigue Take iron 325mg daily and vit B complex daily followup with Silvianuria Toledo DRIVEWAY ATTENDANT-C 03/19/2021 Hypothyroidism following with endocrinology 03/29 for medication management followup with Silvia Tre DRIVEWAY ATTENDANT-C 03/19/2021 Polyps of colon F/U with GI 04/13 followup with Silvia Tre [employer]IVEWAY ATTENDANT-C 03/19/2021 Anemia CBC and CMP Problem visit - not contagious with Pedro Luisyany maegan Toledo DRIVEWAY ATTENDANT-C 03/11/2021 Pancreatitis which is being considered pain has come and gone x 6 months with no acute excruciating pain. amylase and lipase Problem visit - not contagious with Silvia Tre DRIVEWAY ATTENDANT-C 03/11/2021 Peripheral neuropathy Hgb A1c to be drawn Problem vis it - not contagious with Silvia Brooksstephanie DRIVEWAY ATTENDANT-C 03/11/2021 Atrophic vaginitis which is stable continue [...] today, was previously following with group in [place] and would like to see them now in [place] [Encounter for general adult medical examination without [...] leg , resolving . Was hospitalized at [facility] for 4 days on IV antibiotics. Have not recieved records as [facility] system is down and patient is unsure [...] Oral Tablet 01/15/2020 P rovider: Liane Lobo STONE CRUSHER OPERATOR Diagnosis: Levothyroxine Sodium 137 MCG Oral Tablet 01/15/2020 Provider: Liane Lobo STONE CRUSHER OPERATOR Diagnosis: Medications Administered Includes: Administered Medications in patient's chartNo Administered Medications Recorded Vital Signs Includes: Vital Signs from 03/19/2020 through 03/19/2021 Vital Name 03/19/2021 03:46P 03/12/2021 08:47A 03/11/2021 03:27P 03/11/2021 03:22P 05/08/2020 02:39P Blood Pressure Sitting (mmHg) 152/70 148/78 170/92 122/78 Pulse Rate-Sitting (bpm) 60 78 60 56 Respiration Rate (breaths/min) 18 Height (in) 63 63 63 63 Weight (lb) 165.6 167 171 Body Mass Index (kg/m2) 29.3 29.6 3 0.3 Body Surface Area (m2) 1.78 1.79 1. 81 Oxygen Saturation (%) 97 Results Includes: Results from 03/19/2020 through 03/19/2021 CBC [facility] Ordered by Silvia SANCHEZ on 03/12/[address] [place] [address], [id number] Collected: 03/12/2021 Reported: 03/12/2021 13:24 tel :[phone] ext. 1500 GRAN# 4.0 /mm3 (2.5-7.5) None [...] noted. CMP [facility] Ordered by Silvia SANCHEZ on 03/12/[address] [place] [address], [id number] Collected: 03/12/2021 Reported: 03/12/2021 13:24 tel :[phone] ext. 1500 Albumin 3.8 g/dl (3.4-5.0) None [...] Laboratory Ordered by Silvia SANCHEZ on 03/12/[address] [place] [address], [id number] Collected: 03/12/2021 Reported: 03/12/2021 13:24 tel :[phone] ext. 1500 Cholesterol 222 mg/dl (135-200) H [...] Laboratory Ordered by Silvia SANCHEZ on 03/12/[address] [place] [address], [id number] Collected: 03/12/2021 Reported: 03/12/2021 13:24 tel :[phone] ext. 1500 Hgba1c 5.5 na (5.0-6.0) None Note: Responsible Observer: GONZALEZ Reviewed by Silvia SANCHEZ on 2020; All test results are final unless otherwise noted. TSH [facility] Ordered by Silvia SANCHEZ on 03/12/[address] [place] [address], [address] Collected: 03/12/2021 Reported: 03/12/2021 13:24 tel :[phone] ext. 1500 TSH L uIu/mL (0.5-5.8) L (Low) Note: Test Comment : Flagged as Linear L owResponsible Observer: KM Reviewed by Silvia SANCHEZ on 2020; All test results are final unless otherwise noted. IRON PROFILE (FE,TIBC,SAT) [facility] Ordered by Silvia SANCHEZ on 03/12/2021 Collected: 03/12/2021 Reported: 03/15/2021 14:05 TIBC SerPl-sCnc 5 (20-55) L (Low) Note: Responsible Observer: Iron Saturat ion Iron Saturation 400.9010 (F) Iron SerPl-mCnc 25 (50-170) L (Low) Note: Iron values may be falsely elevate d in serum samples frompatients treated with anticoagulants (e.g., hemodialysispatients)Responsible Observer: Iron Level Iron Level 400.9002 (A) TIBC SerPl-mCnc 471 microgram_per_deciliter (250-450) H (High) Note: Responsible Observer: TIBC Total I kim Binding Capacity 400.9015 (A) NOTES See Note None Note: ADD ON TO BLOOD FROM 03/12/21 Reviewed by Silvia SANCHEZ on 2020; All test results are final unless otherwise noted. Reported Physicians [facility] Ordered by Silvia BUSTAMANTEP-Dami on 03/12/2021 Collected: 03/12/2021 Reported: 03/15/2021 14:05 Reported Physicians See Note None Note: Reported Physicians:Ordering: Srinivasan bear, Lesliettending: Tatiana Toledo To: Marv Anaya Review[facility]; All test results are final unless otherwise noted. FERRITIN [facility] Ordered by Silvia BUSTAMANTEP- on 03/12/2021 Collected: 03/12/2021 Reported: 03/15/2021 14:05 Ferritin SerPl-mCnc 8 NanoGramsPerMilliLiter_[Mass_Concentration_Units] (10-291) L (Low) Note: Responsible Observer: Ferritin Angelito ritin 600.1005 (D) NOTES See Note None Note: ADD ON TO BLOOD FROM 03/12/21 Reviewed by Silvia SANCHEZ on 2020; All test results are final unless otherwise noted. Reported Physicians [facility] Ordered by Silvia Toledo [facility]- on 03/12/2021 Collected: 03/12/2021 Reported: 03/15/2021 14:05 Reported Physicians See Note None Note: Reported Physicians:Ordering: Srinivasan bear, HeidiAttending: Tatiana Toledo To: Marv Anaya Reviewed by [facility]; All test results are final unless otherwise noted. Urine culture [facility] Ordered by Marv Anaya MD on 07/27/2020 Collected: 07/27/2020 Reported: 07/28/2020 13:16 Bacteria Ur Cult See Note None Note: NGNo growth.L1NG Reviewed on 07/29/2020; All test result s are final unless otherwise noted. Reported Physicians [facility] Ordered by Marv Anaya MD on 07/27/2020 Collected: 07/27/2020 Reported: 07/28/2020 13:16 Reported Physicians See Note None Note: Reported Physicians:Ordering: Marv Seamanding: Marv Anaya Reviewed on 07/29/2020; All test result s are final unless otherwise noted. HPVHR [facility] Ordered by Patsy Pitts MD on 05/08/2020 Collected: 05/08/2020 Reported: 05/18/2020 08:23 Thin Prep Cvx See Note None Note: See scanned reportSee scanned repo rtLSee scanned reportResponsible Observer: PAP/HPV -[place] + PAP w HPV-Genotype if Positive [id number] 804.6659 (LCI) NOTES See Note None Note: [id number] Technique: BR USH-SPATULAPREVIOUS CYTOLOGY: NEGATIVEBody Site: ENDOCERVIX Reviewed by Patsy Pitts MD on 05/18; All test results are final unless otherwise noted. Reported Physicians [facility] Ordered by Patsy Pitts MD on 05/08/2020 Collected: 05/08/2020 Reported: 05/18/2020 08:23 Reported Physicians See Note None Note: Reported Physicians:Ordering: Patsy GandaraAttending: Ayah Pitts To: Patsy Pitts Reviewed by Patsy Pitts MD on 05/18; All test results are final unless otherwise noted. CMP [facility] Ordered by Patsy Pitts MD on 05/08/2020 [address] [place], [address] Collected: 05/08/2020 Reported: 05/08/2020 14:09 tel :[phone] ext. 1500 Albumin 4.3 g/dl (3.4-5.0) None [...] Ordered by Patsy Pitts MD on 05/08/[address] [place] [address], [facility] Collected: 05/08/2020 Reported: 05/08/2020 14:09 tel : ext. 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/2020 Procedures and Surgical History Includes: Procedures from 03/19/2020 through 03/19/2021 Procedures Code Diagnosis Performing Provider Service Location Service Date EKG- Electrocardiogram/12 lead 98903 Elevated blood-pressure reading, w/o diagnosis of htn Patsy Pitts MD [facility], [facility] HgbA1C 58839 Anemia, unspecified, Other chronic pancreatitis, Hereditary and idiopathic neuropathy, unspecified, Hypothyroidism, unspecified Silvianuria Toledo [facility], [facility] 03/12/2021 Fasting Lipid Profile 07424 Anemia, unspecifie d, Other chronic pancreatitis, Hereditary and idiopathic neuropathy, unspecified, Hypothyroidism, unspecified Silvianuria Toledo [facility] 03/12/2021 General Health Panel( CMP, CBC, TSH) 10746 Ane derrick, unspecified, Other chronic pancreatitis, Hereditary and idiopathic neuropathy, unspecified, Hypothyroidism, unspecified Silvianuria Toledo [facility], [facility] 021 Venipuncture (routine) 71653 Anemia, unspecifi ed, Other chronic pancreatitis, Hereditary and idiopathic neuropathy, unspecified, Hypothyroidism, unspecified Silvia Toledo [facility], [facility] 03/12/2021 ADMINISTRATION 2+ IMMUNIZATION (adult) 40738 Encounter for immunization Silvia Toledo [facility], [facility] 03/11/2021 Shingrix Vaccine(50-64 yr old) 45647 Encounter for imm unization Silvia Toledo [facility], [facility] 03/11/2021 ADMINISTRATION 1-IMMUNIZATION(adult) 19058 Encounter f or immunization Silvianuria Toledo [facility], [facility] 03/11/2021 FLUZONE/ multi-dose ( 6mos -older) 13585 Encounter for immunization Silvianuria Toledo [facility], [facility] 03/11/2021 Urinalysis w/o Microscopy 95657 Chronic bladder pain Marv Anaya MD [facility], [facility] 07/27/2020 Fasting Lipid Profile 28437 Postprocedural hyp othyroidism, Encounter for screening for lipid disorders [facility] 05/08/2020 CMP-Complete Metabolic Profile 91846 Postproce dural hypothyroidism, Encounter for screening for lipid disorders Patsy Pitts MD [facility], [facility] 05/08/2020 ADMINISTRATION 1-IMMUNIZATION(adult) 91481 Encounter f or immunization Patsy Pitts MD [facility], [facility] 05/08/2020 FLUZONE/ multi-dose ( 6mos -older) (Distinct Seperate servic e-same day) 18269 Encounter for immunization Patsy Pitts MD [facility], [facility] 05/08/2020 pelvic exam & Breast check G0101 Encntr for gy n exam (general) (routine) w/o abn findings Patsy Pitts MD [facility], [facility] 020 pap smear colllection Q0091 Encounter for scre ening for malignant neoplasm of cervix Patsy Pitts MD [facility], [facility] 020 Brief Emotional Behavior Assessment 36202 Scre ening for Mental Health/Behavioral Disorder, Unspecified Patsy Pitts MD [facility], [facility] 05/08/2020 Venipuncture (routine) 73168 Postprocedural hy pothyroidism, Encounter for screening for lipid disorders [facility] 05/08/2020 Surgical History Last Updated Surgical / procedural history right carpal tunnel rel ease ~ x 2 02/05/2020 Medical History Includes: Medical History in patient's chart Description Last Updated Medical history hypothyroidism, iron deficiency anemi a 03/19/2021 History of colonoscopy 04/2020, multiple polyps, repe [...] 0 Father health status was reviewed CAD, [place], CVA 2019 Mother health status was reviewed decea sed from colon cancer, diagnosed at age 62 02/05/2020 Review of Systems Review of Systems not supported for this document typeNo Review of Systems Recorded Mental Status Mental Status not supported for this document type Description No memory lapses or loss No anxiety A desire to continue living Functional Status Functional Status not supported for this document typeNo Functional Status Recorded Physical Exam Physical Exam not supported for this document typeNo Physical Exam Recorded Immunizations Includes: Immunizations in patient's chart Vaccine Dose # Date Site Reaction(s) Status Source Influenza, seasonal, injectable 1 05/08/2020 Right Deltoid Complete (Administered) [facility] Influenza, seasonal, injectable 2 03/11/2021 Left Deltoid Complete (Administered) [facility] Shingrix 1 03/11/2021 Left Deltoid Complete (Admini stered) [facility] Allergies Includes: Active, inactive, and resolved Allergies Substance Type Reaction Onset Date - Time Resolved Date - Ti me Status Codeine Intolerance Headache 02/05/2020 - 2:41PM Acti ve Encounters Includes: Encounters from 03/19/2020 through 03/19/2021 Encounter Provider Location Date Check-In Time Check-Out Time D iagnosis followup Silvianuria Toledo [facility], [facility] 2020 3:38PM 4:13PM Fatigue, Hypothyroidism, Polyps Colon Telehealth communication Silvia Toledo [facility] 03/16/202101/2021 8:33AM 03/12/2021 11:59PM nursing visit Patsy Pitts MD [facility], [facility] 03/12/2021 8:28AM 8:48AM Problem visit - not contagious Silvia Toledo [facility], [facility] 03/11/2021 3:06PM 4:02PM Anemia, Pancreat itis, Peripheral Neuropathy nursing visit [facility] 07/27/2020 1:41PM 2:10PM ANNUAL PE-followup exam/30 Patsy Pitts MD [facility], [facility] 05/08/2020 2:29PM 3:20PM Hypothyroidism, Vagi nitis Atrophic, Polyps Colon, Routine History and Physical Adult (18 - 64 Yrs), Routine Gynecological Exam Insurance Includes: Active Insurance Policies Plan Name Member ID Group # Subscriber Relationship Effective Da estefany 1 - [employer] [facility]- [id number] Zohra K Young Self 05/05/2020 - Unknown Advance Directives Includes: Current Advance DirectivesNo Advance Directives Recorded Health Concerns Includes: Active Health ConcernsNo Active Health Concerns Recorded Goals Includes: Active GoalsNo Active Goals Recorded Interventions Includes: Interventions for active GoalsNo Interventions Recorded Evaluations & Outcomes Includes: Evaluations & Outcomes for active GoalsNo Outcomes Recorded
--- OUTSIDE RECORDS SUMMARY | 2021-04-21 12:05 | CCD ---
Author Author [facility] Organization [facility] Address [address] [address] Phone Care Team Providers Care Arts Manager Name Role Phone Vanessa Levi MD Unavailable [phone] Gisselle NAVARRO, Patsy Spring PP [phone] Reason for Referral No Reason for Referral Recorded Problems Includes: Active, inactive, and resolved Problems All Visits Onset Date - Time Resolved Date - Time Provider Co ndition Status Hypertension (Systemic) 03/22/2021 - 5:13PM Silvia bear HUMAN RESOURCES MANAGER-C Active Hypothyroidism 02/05/2020 - 2:41PM Patsy Pitts MD Active Note: Grave's disease, s/p r adioactive iodine, now hypothyroid Polyps Colon 02/05/2020 - 2:56PM Patsy Pitts MD A ctive Vaginitis Atrophic 02/05/2020 - 2:56PM Patsy ortiz MD Active Plan of Treatment Pending Tests Order Diagnosis Results Due Ordering Provi flynn Outside Labs Iron Iron deficiency anemia, unspecified 03/23 Silvia Jacquese HUMAN RESOURCES MANAGER-C Outside [facility] Iron Binding Iron deficiency anemia, unspecified 03/23 Silvia Toledo HUMAN RESOURCES MANAGER-C Outside Labs Reticulocyte Count Iron deficiency anemia, unspecified 03/23/21 Silvia Toledo HUMAN RESOURCES MANAGER-C Outside Labs Ferritin Iron deficiency anemia, unspecified 03/23 Silvia Toledo HUMAN RESOURCES MANAGER-C Outside Labs Vit B12 Iron deficiency anemia, unspecified 03/26 Silvia Toledo HUMAN RESOURCES MANAGER-C Future Appointments Date Time Location Provider followup 04/16/2021 9:00AM [facility] Silvia Toledo [facility] ANNUAL PE-followup exam/30 05/11/2021 3:20PM [facility] Silvia BUSTAMANTEP-Dami Future Tests Order Diagnosis Results Due Ordering Provid er Lab CBC 04/15/21 Silvianuria Jacquesnae BUSTAMANTE P-C Lab Send Out 04/15/21 Silvia Brooksstephanie P-C Assessments Includes: Assessments for all patient encounters Findings Encounter Date Fatigue Take iron 325mg daily and vit B complex daily followup with Silvia Toledo [facility] 03/19/2021 Hypertension discussed medical treatmen t of htn, pt declines wanting to start meds at this time. Pt wants to address current issues first before adding a medication. Encouraged healthy diet, increased exercise, and decreasing stress followup with Silvia Toledo [facility] 03/19/2021 Hypothyroidism following with endocrinology 03/29 for medication management followup with Silvia Toledo [facility] 03/19/2021 Polyps of colon F/U with GI 04/13 followup with Silvia Toledo [facility] 03/19/2021 Anemia CBC and CMP Problem visit - not contagious with Anjana Toledo [facility] 03/11/2021 Pancreatitis which is being considered pain has come and gone x 6 months with no acute excruciating pain. amylase and lipase Problem visit - not contagious with Silvia Toledo [facility] 03/11/2021 Peripheral neuropathy Hgb A1c to be drawn Problem vis it - not contagious with Silvia Toledo [facility] 03/11/2021 Atrophic vaginitis which is stable continue [...] today, was previously following with group in [place] and would like to see them now in [place] [Encounter for general adult medical examination without [...] leg , resolving . Was hospitalized at [facility] for 4 days on IV antibiotics. Have not recieved records as [facility] system is down and patient is unsure [...] Oral Tablet 01/15/2020 P rovider: Liane Lobo FLOORING MECHANIC Diagnosis: Levothyroxine Sodium 137 MCG Oral Tablet 01/15/2020 Provider: Liane Lobo FLOORING MECHANIC Diagnosis: Medications Administered Includes: Administered Medications in patient's chartNo Administered Medications Recorded Vital Signs Includes: Vital Signs from 03/22/2020 through 03/22/2021 Vital Name 03/19/2021 03:46P 03/12/2021 08:47A 03/11/2021 [...] Saturation (%) 97 Results Includes: Results from 03/22/2020 through 03/22/2021 CBC [facility]house [facility] Ordered by Silvia SANCHEZ on 03/12/[address] [place] [address], [facility] Collected: 03/12/2021 Reported: 03/12/2021 13:24 tel : [...] test results are final unless otherwise noted. [facility] Doctor's In-house Laboratory Ordered by Silvia SANCHEZ on 03/12/[address] [place] [address], [id number] Collected: 03/12/2021 Reported: 03/12/2021 13:24 tel :[phone] ext. 1500 Albumin 3.8 g/dl (3.4-5.0) None [...] Laboratory Ordered by Silvia SANCHEZ on 03/12/[address] [place] [address], [id number] Collected: 03/12/2021 Reported: 03/12/2021 13:24 tel :[phone] ext. 1500 Cholesterol 222 mg/dl (135-200) H [...] Laboratory Ordered by Silvia SANCHEZ on 03/12/[address] [place] [address], [id number] Collected: 03/12/2021 Reported: 03/12/2021 13:24 tel :[phone] ext. 1500 Hgba1c 5.5 na (5.0-6.0) None Note: Responsible Observer: KM Reviewed by Silvia SANCHEZ on 2020; All test results are final unless otherwise noted. TSH [facility] Ordered by Silvia SANCHEZ on 03/12/[address] [place] [address], [id number] Collected: 03/12/2021 Reported: 03/12/2021 13:24 tel :[phone] ext. 1500 TSH L uIu/mL (0.5-5.8) L (Low) Note: Test Comment : Flagged as Linear L owResponsible Observer: KM Reviewed by Silvia SANCHEZ on 2020; All test results are final unless otherwise noted. IRON PROFILE (FE,TIBC,SAT) [facility] Lab Ordered by Silvia SANCHEZ on 03/12/2021 [...] are final unless otherwise noted. Reported Physicians [facility] Lab Ordered by Silvia SANCHEZ on 03/12/2021 Collected: 03/12/2021 Reported: 03/15/2021 14:05 Reported Physicians See Note None Note: Reported Physicians:Ordering: Leslie Joettending: Tatiana Toledo To: Marv Anaya Reviewed by Silvia SANCHEZ on 2020; All test results are final unless otherwise noted. FERRITIN [facility] Lab Ordered by Silvia SANCHEZ on 03/12/2021 Collected: 03/12/2021 Reported: 03/15/2021 14:05 Ferritin SerPl-mCnc 8 NanoGramsPerMilliLiter_[Mass_Concentration_Units] (10-291) L (Low) Note: Responsible Observer: Ferritin Angelito ritin 600.1005 (D) NOTES See Note None Note: ADD ON TO BLOOD FROM 03/12/21 Reviewed by Silvia SANCHEZ on 2020; All test results are final unless otherwise noted. Reported Physicians [facility] Lab Ordered by Silvia SANCHEZ on 03/12/2021 Collected: 03/12/2021 Reported: 03/15/2021 14:05 Reported Physicians See Note None Note: Reported Physicians:Ordering: Leslie Joettending: Tatiana Toledo To: Marv Anaya Reviewed by Silvia Toledo HUMAN RESOURCES MANAGER-C on 2020; All test results are final unless otherwise noted. Urine culture [facility] Ordered by Marv Anaya MD on 07/27/2020 Collected: 07/27/2020 Reported: 07/28/2020 13:16 Bacteria Ur Cult See Note None Note: NGNo growth.L1NG Reviewed on 07/29/2020; All test result s are final unless otherwise noted. Reported Physicians [facility] Ordered by Marv Anaya MD on 07/27/2020 Collected: 07/27/2020 Reported: 07/28/2020 13:16 Reported Physicians See Note None Note: Reported Physicians:Ordering: Marv Seaman LAttending: Marv Anaya Reviewed on 07/29/2020; All test result s are final unless otherwise noted. HPVHR [facility] Ordered by Patsy Pitts MD on 05/08/2020 Collected: 05/08/2020 Reported: 05/18/2020 08:23 Thin Prep Cvx See Note None Note: See scanned reportSee scanned repo rtLSee scanned reportResponsible Observer: PAP/HPV -[place] + PAP w HPV-Genotype if Positive [id number] [phone] (LCI) NOTES See Note None Note: [id number] Technique: BR USH-SPATULAPREVIOUS CYTOLOGY: NEGATIVEBody Site: ENDOCERVIX Reviewed by Patsy Pitts MD on 05/18; All test results are final unless otherwise noted. Reported Physicians [facility] Lab Ordered by Patsy Pitts MD on 05/08/2020 Collected: 05/08/2020 Reported: 05/18/2020 08:23 Reported Physicians See Note None Note: Reported Physicians:Ordering: Patsy GandaraAttending: Ayah Pitts To: Patsy Pitts Reviewed by Patsy Pitts MD on 05/18; All test results are final unless otherwise noted. CMP [facility] Ordered by Patsy Pitts MD on 05/08/2020 [address] [place], [address] Collected: 05/08/2020 Reported: 05/08/2020 14:09 tel :[phone] ext. 1500 Albumin 4.3 g/dl (3.4-5.0) None [...] by Patsy Pitts MD on 05/08/2020 [address] [place], [address] Collected: 05/08/2020 Reported: 05/08/2020 14:09 tel :[phone] ext. 1500 Cholesterol 210 mg/dl (135-200) H (High) Note: Responsible Observer: KM Dir. LDL 123 mg/dl (50-150) None Note: Responsible Observer: GONZALEZ HDL 61 mg/dl (35-55) H (High) Note: Responsible Observer: GONZALEZ Triglycerides 60 mg/dl (40-150) None Note: Responsible Observer: KM Reviewed by Patsy Pitts MD on 05/08; All test results are final unless otherwise noted. 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 Procedures and Surgical History Includes: Procedures from 03/22/2020 through 03/22/2021 Procedures Code Diagnosis Performing Provider Service Location Service Date EKG- Electrocardiogram/12 lead 42635 Elevated blood-pressure reading, w/o diagnosis of htn Patsy Pitts MD [facility], [facility] 021 HgbA1C 42347 Anemia, unspecified, Other chronic pancreatitis, Hereditary and idiopathic neuropathy, unspecified, Hypothyroidism, unspecified Silvia Toledo HUMAN RESOURCES MANAGER-C [facility], [facility] 03/12/2021 Fasting Lipid Profile 53573 Anemia, unspecifie d, Other chronic pancreatitis, Hereditary and idiopathic neuropathy, unspecified, Hypothyroidism, unspecified Silvianuria Toledo [facility], [facility] 03/12/2021 General Health Panel( CMP, CBC, TSH) 77291 Ane derrick, unspecified, Other chronic pancreatitis, Hereditary and idiopathic neuropathy, unspecified, Hypothyroidism, unspecified Silvianuria Toledo [facility], [facility] 021 Venipuncture (routine) 30105 Anemia, unspecifi ed, Other chronic pancreatitis, Hereditary and idiopathic neuropathy, unspecified, Hypothyroidism, unspecified Silvianuria Toledo [facility], [facility] 03/12/2021 ADMINISTRATION 2+ IMMUNIZATION (adult) 54313 Encounter for immunization [facility], [facility] 03/11/2021 Shingrix Vaccine(50-64 yr old) 29869 Encounter for imm unization [facility], [facility] 03/11/2021 ADMINISTRATION 1-IMMUNIZATION(adult) 72396 Encounter f or immunization [facility] Tre [facility], [facility] 03/11/2021 FLUZONE/ multi-dose ( 6mos -older) 93649 Encounter for immunization [facility], [facility] 03/11/2021 Urinalysis w/o Microscopy 60582 Chronic bladder pain Marv Anaya MD [facility], [facility] 07/27/2020 Fasting Lipid Profile 60522 Postprocedural hyp othyroidism, Encounter for screening for lipid disorders [facility] 05/08/2020 CMP-Complete Metabolic Profile 87425 Postproce dural hypothyroidism, Encounter for screening for lipid disorders Patsy Pitts MD [facility], [facility] 05/08/2020 ADMINISTRATION 1-IMMUNIZATION(adult) 28346 Encounter f or immunization Patsy Pitts MD [facility], [facility] 05/08/2020 FLUZONE/ multi-dose ( 6mos -older) (Distinct Seperate servic e-same day) 62288 Encounter for immunization Patsy Pitts MD [facility], [facility] 05/08/2020 pelvic exam & Breast check G0101 Encntr for gy n exam (general) (routine) w/o abn findings Patsy Pitts MD [facility], [facility] 020 pap smear colllection Q0091 Encounter for scre ening for malignant neoplasm of cervix Patsy Pitts MD [facility], [facility] 020 Brief Emotional Behavior Assessment 63783 Scre ening for Mental Health/Behavioral Disorder, Unspecified Patsy Pitts MD [facility], [facility] 05/08/2020 Venipuncture (routine) 38058 Postprocedural hy pothyroidism, Encounter for screening for lipid disorders [facility] 05/08/2020 Surgical History Last Updated Surgical [...] 0 Father health status was reviewed CAD, PA, CVA 2019 Mother health status was reviewed [...] injectable 1 05/08/2020 Right Deltoid Complete (Administered) [facility] Influenza, seasonal, injectable 2 03/11/2021 Left Deltoid Complete (Administered) [facility] Shingrix 1 03/11/2021 Left Deltoid Complete (Admini stered) [facility] Allergies Includes: Active, inactive, and resolved Allergies Substance Type Reaction Onset Date - Time Resolved Date - Ti me Status Codeine Intolerance Headache 02/05/2020 - 2:41PM Acti ve Encounters Includes: Encounters from 03/22/2020 through 03/22/2021 Encounter Provider Location Date Check-In Time Check-Out Time D iagnosis followup Silvianuria Toledo [facility], [facility] 2020 3:38PM 4:13PM Fatigue, Hypothyroidism, Polyps Colon, H ypertension (Systemic) Telehealth communication Silvianuria Toledo [facility] 03/16/202101/2021 8:33AM 03/12/2021 11:59PM nursing visit Patsy Pitts MD [facility], [facility] 03/12/2021 8:28AM 8:48AM Problem visit - not contagious Silvianuria Toledo [facility], [facility] 03/11/2021 3:06PM 4:02PM Anemia, Pancreat itis, Peripheral Neuropathy nursing visit Marv Anaya MD [facility], [facility] 07/27/2020 1:41PM 2:10PM ANNUAL PE-followup exam/30 Patsy Pitts MD [facility], [facility] 05/08/2020 2:29PM 3:20PM Hypothyroidism, Vagi nitis Atrophic, Polyps Colon, Routine History and Physical Adult (18 - 64 Yrs), Routine Gynecological Exam Insurance Includes: Active Insurance Policies Plan Name Member ID Group # Subscriber Relationship Effective Da estefany 1 - [facility]- [id number] Zohra K Young Self 05/05/2020 - Unknown Advance Directives Includes: Current Advance DirectivesNo Advance Directives Recorded Health Concerns Includes: Active Health ConcernsNo Active Health Concerns Recorded Goals Includes: Active GoalsNo Active Goals Recorded Interventions Includes: Interventions for active GoalsNo Interventions Recorded Evaluations & Outcomes Includes: Evaluations & Outcomes for active GoalsNo Outcomes Recorded
--- OUTSIDE RECORDS SUMMARY | 2021-04-21 12:05 | CCD ---
Author Author [facility] Organization [facility] Address [address] [place] [address] Phone Care Team Providers Care Sheep Farm Manager Name Role Phone Gurmeet NAVARRO, Vanessa Unavailable [phone] Gisselle NAVARRO, Patsy [place] PP [phone] Reason for Referral No Reason for Referral [...] Labs Amylase Other chronic pancreatitis 03/18/21 H eidi Roggie [employer]EL HOUSEMAN[employer]C Outside Labs Lipase Other chronic pancreatitis 03/18/21 H eidi Roggie [employer]EL HOU[employer]-C Future Appointments Date Time Location Provider ANNUAL PE-followup exam05/11/2021 3:20PM [facility] Silvia Toledo [employer]EL HOUSEMAN-C Future Tests Order Diagnosis Results Due Ordering Provid er Lab A1C 04/11/21 Silvia Toledo FN P-C Lab CBC 04/11/21 Silvia Toledo FN P-C Lab CMP 04/11/21 Silvia BUSTAMANTE P-C Lab Send Out 04/11/21 Silvia Toledo FN P-C Lab CMP 05/08/21 Patsy ortiz MD Lab Lipid Panel 05/08/21 Patsy ortiz MD Assessments Includes: Assessments for all patient encounters Findings Encounter Date Anemia CBC and CMP Problem visit - not contagious with Anjana maegan Tre [employer]EL HOUSEMAN-C 03/11/2021 Pancreatitis which is being considered pain has come and gone x 6 months with no acute excruciating pain. amylase and lipase Problem visit - not contagious with iSlvia Toledo [employer]OTEL HOUSEMAN-C 03/11/2021 Peripheral neuropathy Hgb A1c to be drawn Problem vis it - not contagious with Silvia Toledo [employer] HOU[employer]MAN-C 03/11/2021 Atrophic vaginitis which is stable continue [...] today, was previously following with group in [place] and would like to see them now in [place] [Encounter for general adult medical examination without [...] leg , resolving . Was hospitalized at [facility] for 4 days on IV antibiotics. Have not recieved records as [facility] system is down and patient is unsure [...] Oral Tablet 01/15/2020 P rovider: Liane Lobo [employer]AND RECLAMATION SPECIALIST Diagnosis: Levothyroxine Sodium 137 MCG Oral Tablet 01/15/2020 Provider: Liane Lobo NP Diagnosis: Medications Administered Includes: Administered Medications in patient's chartNo Administered Medications Recorded Vital Signs Includes: Vital Signs from 03/11/2020 through 03/11/2021 Vital Name 03/11/2021 03:27P 03/11/2021 03:22P 05/08/2020 0 2:39P Blood Pressure Sitting (mmHg) 170/92 12 2/78 Pulse Rate-Sitting (bpm) 60 56 Weight (lb) 167 171 Body Mass Index (kg/m2) 29.6 30.3 Body Surface Area (m2) 1.79 1.81 Height (in) 63 63 Results Includes: Results from 03/11/2020 through 03/11/2021 Urine culture [facility] Ordered by Marv Anaya MD on 07/27/2020 Collected: 07/27/2020 Reported: 07/28/2020 13:16 Bacteria Ur Cult See Note None Note: NGNo growth.L1NG Reviewed on 07/29/2020; All test result s are final unless otherwise noted. Reported Physicians [facility] Ordered by Marv Anaya MD on 07/27/2020 Collected: 07/27/2020 Reported: 07/28/2020 13:16 Reported Physicians See Note None Note: Reported Physicians:Ordering: Marv Seamanding: Marv Anaya Reviewed on 07/29/2020; All test result s are final unless otherwise noted. HPVHR [facility] Ordered by Patsy Pitts MD on 05/08/2020 Collected: 05/08/2020 Reported: 05/18/2020 08:23 Thin Prep Cvx See Note None Note: See scanned reportSee scanned repo rtLSee scanned reportResponsible Observer: PAP/HPV -[place] + PAP w HPV-Genotype if Positive [phone] ([facility]) NOTES See Note None Note: [id number] Technique: BR USH-SPATULAPREVIOUS CYTOLOGY: NEGATIVEBody Site: ENDOCERVIX Reviewed by Patsy Pitts MD on 05/18; All test results are final unless otherwise noted. Reported Physicians [facility] Ordered by Patsy Pitts MD on 05/08/2020 Collected: 05/08/2020 Reported: 05/18/2020 08:23 Reported Physicians See Note None Note: Reported Physicians:Ordering: Patsy GandaraAttending: Ayah Pitts To: Patsy Pitts Reviewed by Patsy Pitts MD on 05/18; All test results are final unless otherwise noted. CMP [facility] Ordered by Patsy Pitts MD on 05/08/[address] [place] [address], [address] Collected: 05/08/2020 Reported: 05/08/2020 14:09 tel : [...] Ordered by Patsy Pitts MD on 05/08/[address] [place] [address], [address] Collected: 05/08/2020 Reported: 05/08/2020 14:09 tel :[phone]. 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 Procedures and Surgical History Includes: Procedures from 03/11/2020 through 03/11/2021 Procedures Code Diagnosis Performing Provider Service Location Service Date Urinalysis w/o Microscopy 73979 Chronic bladder pain Marv Anaya MD [facility], [facility] 07/27/2020 Venipuncture (routine) 33028 Postprocedural hy pothyroidism, Encounter for screening for lipid disorders Pats[facility], [facility] 05/08/2020 Brief Emotional Behavior Assessment 80825 Scre ening for Mental Health/Behavioral Disorder, Unspecified Patsy Pitts MD [facility], [facility] 05/08/2020 pap smear colllection Q0091 Encounter for scre ening for malignant neoplasm of cervix Patsy Pitts MD [facility], [facility] 020 pelvic exam & Breast check G0101 Encntr for gy n exam (general) (routine) w/o abn findings Patsy Pitts MD [facility], [facility] 020 FLUZONE/ multi-dose ( 6mos -older) (Distinct Seperate servic e-same day) 27344 Encounter for immunization Patsy Pitts MD [facility], [facility] 05/08/2020 ADMINISTRATION 1-IMMUNIZATION(adult) 21504 Encounter f or immunization Patsy Pitts MD [facility], [facility] 05/08/2020 CMP-Complete Metabolic Profile 07608 Postproce dural hypothyroidism, Encounter for screening for lipid disorders Patsy Pitts MD [facility], [facility] 05/08/2020 Fasting Lipid Profile 42324 Postprocedural hyp othyroidism, Encounter for screening for lipid disorders [facility] 05/08/2020 Surgical History Last Updated Surgical / [...] 0 Father health status was reviewed CAD, AL, CVA 2019 Mother health status was reviewed decea sed from colon cancer, diagnosed at age 62 02/05/2020 Review of Systems Review of Systems not supported for this document typeNo Review of Systems Recorded Mental Status Mental Status not supported for this document type Description No anxiety A desire to continue living Functional Status Functional Status not supported for this document typeNo Functional Status Recorded Physical Exam Physical Exam not supported for this document typeNo Physical Exam Recorded Immunizations Includes: Immunizations in patient's chart Vaccine Dose # Date Site Reaction(s) Status Source Influenza, seasonal, injectable 1 05/08/2020 Right Deltoid Complete (Administered) [facility] Influenza, seasonal, injectable 2 03/11/2021 Left Deltoid Complete (Administered) [facility] Shingrix 1 03/11/2021 Left Deltoid Complete (Admini stered) [facility] Allergies Includes: Active, inactive, and resolved Allergies Substance Type Reaction Onset Date - Time Resolved Date - Ti me Status Codeine Intolerance Headache 02/05/2020 - 2:41PM Acti ve Encounters Includes: Encounters from 03/11/2020 through 03/11/2021 Encounter Provider Location Date Check-In Time Check-Out Time D iagnosis Problem visit - not contagious Silvia Toddstephanie H[employer]EL HOUSEMAN-C [facility], [facility] 03/11/2021 3:06PM 4:02PM Anemia, Pancreat itis, Peripheral Neuropathy nursing visit Marv Anaya MD [facility], [facility] 07/27/2020 1:41PM 2:10PM ANNUAL PE-followup exam/30 Patsy Pitts MD [facility], [facility] 05/08/2020 2:29PM 3:20PM Hypothyroidism, Vagi nitis Atrophic, Polyps Colon, Routine History and Physical Adult (18 - 64 Yrs), Routine Gynecological Exam Insurance Includes: Active Insurance Policies Plan Name Member ID Group # Subscriber Relationship Effective Da estefany 1 - [facility]- [id number] Zohracarrie Richardson Self 05/05/2020 - Unknown Advance Directives Includes: Current Advance DirectivesNo Advance Directives Recorded Health Concerns Includes: Active Health ConcernsNo Active Health Concerns Recorded Goals Includes: Active GoalsNo Active Goals Recorded Interventions Includes: Interventions for active GoalsNo Interventions Recorded Evaluations & Outcomes Includes: Evaluations & Outcomes for active GoalsNo Outcomes Recorded
--- OUTSIDE RECORDS SUMMARY | 2021-04-21 12:05 | CCD ---
Author Author [facility] Organization [facility] Address [address] [address] Phone Care Team Providers Care Broadloom Weaver Name Role Phone Vanessa Levi MD Unavailable [phone] Gisselle NAVARRO, Patsy [place] PP [phone] Reason for Referral No Reason for Referral Recorded Problems Includes: Active, inactive, and resolved Problems All Visits Onset Date - Time Resolved Date - Time Provider Co ndition Status Hypertension (Systemic) 03/22/2021 - 5:13PM Silvia bear [employer]ID CRANE OPERATOR-C Active Hypothyroidism 02/05/2020 - 2:41PM Patsy Pitts MD Active Note: Grave's disease, s/p r adioactive iodine, now hypothyroid Polyps Colon 02/05/2020 - 2:56PM Patsy Pitts MD A ctive Vaginitis Atrophic 02/05/2020 - 2:56PM Patsy ortiz MD Active Plan of Treatment Pending Tests Order Diagnosis Results Due Ordering Provi flynn Outside Labs Iron Iron deficiency anemia, unspecified 03/23 Silvia Jacquese ACID CRANE OPERATOR-C Outside Labs Iron Binding Iron deficiency anemia, unspecified 03/23 Silvia Toledo ACID CRANE OPERATOR-C Outside Labs Reticulocyte Count Iron deficiency anemia, unspecified 03/23/21 Silvia Toledo ACID CRANE OPERATOR-C Outside Labs Ferritin Iron deficiency anemia, unspecified 03/23 Slivia Toledo ACID CRANE OPERATOR-C Outside Labs Vit B12 Iron deficiency anemia, unspecified 03/26 Silvia Toledo ACID CRANE OPERATOR-C Future Appointments Date Time Location Provider ANNUAL PE-followup 05/11/2021 3:20PM [facility], [facility] Silvia Tre [facility]- Assessments Includes: Assessments for all patient encounters Findings Encounter Date Abdominal pain scheduled for endoscopy and colonoscopy 04/[address] of abd 04/23. Iron levels back WNL with pt taking iron supplement daily. Coninue iron and f/u with GI and Endocrinology followup with Silvia Toledo ACID CRANE OPERATOR-C 04/16/2021 Hypertension which is exacerbated romel nue diet and exercise management, discussion of medication at annual exam if continues to be elevated followup with Silvianuria Toledo ACID CRANE OPERATOR-C 04/16/2021 Hypothyroidism which is stable medication changes don e by endocrinology followup with Silvianuria BUSTAMANTEP-C 04/16/2021 Polyps of colon following with GI followup with Silvia McduffieP-C 04/16/2021 Fatigue Take iron 325mg daily and vit B complex daily followup with Silvianuria Toledo [facility] 03/19/2021 Hypertension discussed medical treatmen t of htn, pt declines wanting to start meds at this time. Pt wants to address current issues first before adding a medication. Encouraged healthy diet, increased exercise, and decreasing stress followup with Silvianuria Toledo [facility] 03/19/2021 Hypothyroidism following with endocrinology 03/29 for medication management followup with Silvia Toledo ACID CRANE OPERATOR-C 03/19/2021 Polyps of colon F/U with GI 04/13 followup with Silvia BUSTAMANTEP-C 03/19/2021 Anemia CBC and CMP Problem visit - not contagious with Anjana Toledo ACID CRANE OPERATOR-C 03/11/2021 Pancreatitis which is being considered pain has come and gone x 6 months with no acute excruciating pain. amylase and lipase Problem visit - not contagious with Silvia Toledo ACID CRANE OPERATOR-C 03/11/2021 Peripheral neuropathy Hgb A1c to be drawn Problem vis it - not contagious with Silvia Toledo ACID CRANE OPERATOR-C 03/11/2021 Atrophic vaginitis which is stable continue estradiol cream [Acute vaginitis] ANNUAL PE-followup exam with Patsy Pitts MD 05/08/2020 Hypothyroidism which [...] today, was previously following with group in [place] and would like to see them now in [place] [Encounter for general adult medical examination without [...] leg , resolving . Was hospitalized at [facility] for 4 days on IV antibiotics. Have not recieved records as [facility] system is down and patient is [...] Sodium 25 MCG Oral Tablet 01/15/2020 P tylerder: Liane Lobo FITNESS CONSULTANT Diagnosis: Levothyroxine Sodium 137 MCG Oral Tablet 01/15/2020 Provider: Liane Lobo FITNESS CONSULTANT Diagnosis: Medications Administered Includes: Administered Medications in patient's chartNo Administered Medications Recorded Vital Signs Includes: Vital Signs from 04/16/2020 through 04/16/2021 Vital Name 04/16/2021 09:17A 03/19/2021 03:46P 03/12/2021 08:47A 03/11/2021 03:27P 03/11/2021 03:22P Blood Pressure Sitting (mmHg) 142/72 152/70 148/78 170/92 Pulse Rate-Sitting (bpm) 68 60 78 60 Respiration Rate (breaths/min) 18 18 Height (in) 63 63 63 63 Weight (lb) 171.2 165.6 167 Body Mass Index (kg/m2) 30.3 29.3 29.6 Body Surface Area (m2) 1.81 1.78 1.79 Oxygen Saturation (%) 97 97 Vital Name 05/08/2020 02:39P Blood Pressure Sitting (mmHg) 122/78 Pulse Rate-Sitting (bpm) 56 Height (in) 63 Weight (lb) 171 Body Mass Index (kg/m2) 30.3 Body Surface Area (m2) 1.81 Results Includes: Results from 04/16/2020 through 04/16/2021 [facility] Ordered by Silvia SANCHEZ on 03/12/[address] [place] [address], [facility] Collected: 03/12/2021 Reported: 03/12/2021 13:24 tel :[phone] ext. 1500 GRAN# 4.0 /mm3 (2.5-7.5) None [...] test results are final unless otherwise noted. [facility] Doctor's In-house Laboratory Ordered by Silvia SANCHEZ on 03/12/[address] [place] [address], [address] Collected: 03/12/2021 Reported: 03/12/2021 13:24 tel : [...] Laboratory Ordered by Silvia SANCHEZ on 03/12/[address] [place] [address], [address] Collected: 03/12/2021 Reported: 03/12/2021 13:24 tel :[phone] ext. 1500 Cholesterol 222 mg/dl (135-200) H [...] Laboratory Ordered by Silvia SANCHEZ on 03/12/[address] [place] [address], [address] Collected: 03/12/2021 Reported: 03/12/2021 13:24 tel :[phone] ext. 1500 Hgba1c 5.5 na (5.0-6.0) None Note: Responsible Observer: KM Reviewed by Silvia SANCHEZ on 2020; All test results are final unless otherwise noted. TSH [facility] Ordered by Silvia SANCHEZ on 03/12/[address] [place] [address], [address] Collected: 03/12/2021 Reported: 03/12/2021 13:24 tel :[phone] ext. 1500 TSH L uIu/mL (0.5-5.8) L (Low) Note: Test Comment : Flagged as Linear L owResponsible Observer: KM Reviewed by Silvia SANCHEZ on 2020; All test results are final unless otherwise noted. IRON PROFILE (FE,TIBC,SAT) [facility] Lab Ordered by Silvia SANCHEZ on 03/12/2021 [...] [facility] Ordered by Silvia SANCHEZ on 03/12/2021 Collected: 03/12/2021 Reported: 03/15/2021 14:05 Reported Physicians See Note None Note: Reported Physicians:Ordering: Pedro Luis JoeidiAttending: Tatiana Toledo To: Marv Anaya Reviewed by Silvia SANCHEZ on 2020; All test results are final unless otherwise noted. FERRITIN [facility] Lab Ordered by Silvia SANCHEZ on 03/12/2021 Collected: 03/12/2021 Reported: 03/15/2021 14:05 Ferritin SerPl-mCnc 8 NanoGramsPerMilliLiter_[Mass_Concentration_Units] (10-291) L (Low) Note: Responsible Observer: Ferritin Angelito ritin 600.1005 (D) NOTES See Note None Note: ADD ON TO BLOOD FROM 03/12/21 Reviewed by Silvia BUSTAMANTEPKel on 2020; All test results are final unless otherwise noted. Reported Physicians [facility] Lab Ordered by Silvia BUSTAMANTEP-C on 03/12/2021 Collected: 03/12/2021 Reported: 03/15/2021 14:05 Reported Physicians See Note None Note: Reported Physicians:Ordering: Dale Joeending: Tatiana Toledo To: Marv Anaya Reviewed by Silvia Toledo [facility]- on 2020; All test results are final unless otherwise noted. Urine culture [facility] [...] -[place] + PAP w HPV-Genotype if Positive [phone] ([facility]) NOTES See Note None Note: [id number] Technique: BR USH-SPATULAPREVIOUS CYTOLOGY: NEGATIVEBody Site: ENDOCERVIX [...] test results are final unless otherwise noted. [facility] Doctor's In-house Laboratory Ordered by Patsy Pitts MD on 05/08/[address] [place] [address], [address] Collected: 05/08/2020 Reported: 05/08/2020 14:09 tel : [...] None Note: Responsible Observer: KM Reviewed by Ptasy Pitts MD on 05/08; All test results are final unless otherwise noted. Lipid Panel [facility] Ordered by Patsy Pitts MD on 05/08/[address] [place] [address], [address] Collected: 05/08/2020 Reported: 05/08/2020 14:09 tel :[phone] ext. 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 [facility] 02/05/2020 Procedures and Surgical History Includes: Procedures from 04/16/2020 through 04/16/2021 Procedures Code Diagnosis Performing Provider Service Location Service Date EKG- Electrocardiogram/12 lead 56393 Elevated blood-pressure reading, w/o diagnosis of htn Patsy Pitts MD [facility], [facility] 021 HgbA1C 38237 Anemia, unspecified, Other chronic pancreatitis, Hereditary and idiopathic neuropathy, unspecified, Hypothyroidism, unspecified [facility], [facility] 03/12/2021 Fasting Lipid Profile 91606 Anemia, unspecifie d, Other chronic pancreatitis, Hereditary and idiopathic neuropathy, unspecified, Hypothyroidism, unspecified [facility], [facility] 03/12/2021 General Health Panel( CMP, CBC, TSH) 88982 Ane derrick, unspecified, Other chronic pancreatitis, Hereditary and idiopathic neuropathy, unspecified, Hypothyroidism, unspecified [facility], [facility] 021 Venipuncture (routine) 24743 Anemia, unspecifi ed, Other chronic pancreatitis, Hereditary and idiopathic neuropathy, unspecified, Hypothyroidism, unspecified [facility], [facility] 03/12/2021 ADMINISTRATION 2+ IMMUNIZATION (adult) 22997 Encounter for immunization [facility], [facility] 03/11/2021 Shingrix Vaccine(50-64 yr old) 86453 Encounter for imm unization [facility], [facility] 03/11/2021 ADMINISTRATION 1-IMMUNIZATION(adult) 72001 Encounter f or immunization [facility], [facility] 03/11/2021 FLUZONE/ multi-dose ( 6mos -older) 50396 Encounter for immunization [facility], [facility] 03/11/2021 Urinalysis w/o Microscopy 74559 Chronic bladder pain Marv Anaya MD [facility], [facility] 07/27/2020 Fasting Lipid Profile 41944 Postprocedural hyp othyroidism, Encounter for screening for lipid disorders [facility] 05/08/2020 CMP-Complete Metabolic Profile 95685 Postproce dural hypothyroidism, Encounter for screening for lipid disorders Patsy Pitts MD [facility], [facility] 05/08/2020 ADMINISTRATION 1-IMMUNIZATION(adult) 24866 Encounter f or immunization Patsy Pitts MD [facility], [facility] 05/08/2020 FLUZONE/ multi-dose ( 6mos -older) (Distinct Seperate servic e-same day) 58941 Encounter for immunization Patsy Pitts MD [facility], [facility] 05/08/2020 pelvic exam & Breast check G0101 Encntr for gy n exam (general) (routine) w/o abn findings Patsy Pitts MD [facility], [facility] 020 pap smear colllection Q0091 Encounter for scre ening for malignant neoplasm of cervix Patsy Pitts MD [facility], [facility] 020 Brief Emotional Behavior Assessment 37631 Scre ening for Mental Health/Behavioral Disorder, Unspecified Patsy Pitts MD [facility], [facility] 05/08/2020 Venipuncture (routine) 94675 Postprocedural hy pothyroidism, Encounter for screening for lipid disorders [facility] 05/08/2020 Surgical History Last Updated Surgical / procedural history right carpal tunnel rel ease ~ x 2 02/05/2020 Medical History Includes: Medical History in patient's chart Description Last Updated No active illness 04/16/2021 Not taking antibiotics recently 04/16/2021 Medical history hypothyroidism, iron deficiency anemi a [...] 0 Father health status was reviewed CAD, [place], CVA 2019 Mother health status was reviewed decea chase from colon cancer, diagnosed at age 62 [...] injectable 1 05/08/2020 Right Deltoid Complete (Administered) [facility] Influenza, seasonal, injectable 2 03/11/2021 Left Deltoid Complete (Administered) [facility] Shingrix 1 03/11/2021 Left Deltoid Complete (Admini stered) [facility] Allergies Includes: Active, inactive, and resolved Allergies Substance Type Reaction Onset Date - Time Resolved Date - Ti me Status Codeine Intolerance Headache 02/05/2020 - 2:41PM Acti ve Encounters Includes: Encounters from 04/16/2020 through 04/16/2021 Encounter Provider Location Date Check-In Time Check-Out Time D iagnosis followup Silvianuria Toledo [facility], [facility] 2020 8:57AM 9:28AM Abdominal Pain, Hypertension (Systemic), Hypothyroidism, Polyps Colon followup Silvianuria Toledo [facility], [facility] 2020 3:38PM 4:13PM Fatigue, Hypothyroidism, Polyps Colon, H ypertension (Systemic) Telehealth communication Silvianuria Toledo [facility] 03/16/202101/2021 8:33AM 03/12/2021 11:59PM nursing visit Patsy Pitts MD [facility], [facility] 03/12/2021 8:28AM 8:48AM Problem visit - not contagious Silvianuria Toledo [facility], [facility] 03/11/2021 3:06PM 4:02PM Anemia, Pancreat itis, Peripheral Neuropathy nursing visit Marv Anaya MD [facility], [facility] 07/27/2020 1:41PM 2:10PM ANNUAL PE-followup exam/30 Patsy Pitts MD [facility] 05/08/2020 2:29PM 3:20PM Hypothyroidism, Vagi nitis Atrophic, Polyps Colon, Routine History and Physical Adult (18 - 64 Yrs), Routine Gynecological Exam Insurance Includes: Active Insurance Policies Plan Name Member ID Group # Subscriber Relationship Effective Da estefany 1 - [facility]- [id number] Zohra K Young Self 05/05/2020 - Unknown Advance Directives Includes: Current Advance DirectivesNo Advance Directives Recorded Health Concerns Includes: Active Health ConcernsNo Active Health Concerns Recorded Goals Includes: Active GoalsNo Active Goals Recorded Interventions Includes: Interventions for active GoalsNo Interventions Recorded Evaluations & Outcomes Includes: Evaluations & Outcomes for active GoalsNo Outcomes Recorded
--- OUTSIDE RECORDS SUMMARY | 2021-04-21 12:05 | CCD ---
Author Organization Unknown Address [address] [place] [address] Phone [phone] Care Team Providers Care Personal Financial Counselor Name Role Phone Magdiel Swann Unavailable Unavailable Allergies None recorded. Medications Name Status Start Date Stop Date estradiol 0.01% (0.1 mg/gram) vaginal cr eam INSERT 2 GM VAGINALLY DAILY FOR 1 WEEK THEN GRADUALLY REDUCE TO 1 GM DAILY FOR 1 WEEK THEN A MAINTENANCE DOSE OF 1 GM 1 3 TIMES PER WEEK Active Not available levothyroxine 137 mcg tablet TAKE ONE TABLET BY MOUTH ONCE DAILY MAXIMUM DAILY DOSE ONE TABLET Active Not available liothyronine 25 mcg tablet TAKE ONE TABLET BY MOUTH EVERY DAY MAXIMUM DAILY DOSE 1 TABLET Active Not available Sutab 1.479-0.188-0.225 gram tablet TAKE BY MOUTH DIRECTED Active Not available Problems None recorded. Procedures None recorded. Results Lab Results None recorded. Past Encounters 04/01/2021 Administration of SARS-CoV-2 mRNA Vaccine Magdiel Swann MD: [address] [place] [address], Ph. 09/07/2020 Administration of SARS-CoV-2 Antigen Vaccine Magdiel Swann MD: [address] [place] [address], Ph. Social History None recorded. Vaccine List Vaccine Type COVID-19, mRNA, LNP-S, PF, 100 mcg/0.5 m L dose 10.5 mL .25 mL Plan of Care Reminders Provider Appointments None recorded. Lab None recorded. Referral None recorded. Procedures None recorded. Surgeries None recorded. Imaging None recorded. Vitals None recorded.
--- OUTSIDE RECORDS SUMMARY | 2021-04-21 12:06 | CCD ---
Author Author [facility] Organization [facility] Address Unknown Phone Unavailable Care Team Providers Care Truck Despatcher Name Role Phone Fadia Swann MD Unavailable Unavailable Fadia Swann MD Unavailable Unavailable Fadia Swann MD Unavailable Unavailable Fadia Swann MD Unavailable Unavailable Fadia Swann MD Unavailable Unavailable Fadia Swann MD Unavailable Unavailable Fadia Swann MD Unavailable Unavailable Fadia Swann MD Unavailable Unavailable Fadia Swann MD Unavailable Unavailable Fadia Swann MD Unavailable Unavailable Fadia Swann MD Unavailable Unavailable Fadia Swann MD Unavailable Unavailable Fadia Swann MD Unavailable Unavailable Fadia Swann MD Unavailable Unavailable Fadia Swann MD Unavailable Unavailable Fadia Swann MD Unavailable Unavailable Fadia Swann MD Unavailable Unavailable Fadia Swann MD Unavailable Unavailable Fadia Swann MD Unavailable Unavailable Fadia Swann MD Unavailable Unavailable Fadia Swann MD Unavailable Unavailable Fadia Swann MD Unavailable Unavailable Fadia Swann MD Unavailable Unavailable Fadia Swann MD Unavailable Unavailable Fadia Swann MD Unavailable Unavailable Fadia Swann MD Unavailable Unavailable Fadia Swann MD Unavailable Unavailable Fadia Swann MD Unavailable Unavailable Fadia Swann MD Unavailable Unavailable Fadia Swann MD Unavailable Unavailable Fadia Swann MD Unavailable Unavailable Fadia Swann MD Unavailable Unavailable Fadia Swann MD Unavailable Unavailable Fadia Swann MD Unavailable Unavailable Fadia Swann MD Unavailable Unavailable Fadia Swann MD Unavailable Unavailable Fadia Swann MD Unavailable Unavailable Fadia Swann MD Unavailable Unavailable Fadia Swann MD Unavailable Unavailable Fadia Swann MD Unavailable Unavailable Fadia Swann MD Unavailable Unavailable Fadia Swann MD Unavailable Unavailable Fadia Swann MD Unavailable Unavailable Fadia Swann MD Unavailable Unavailable Fadia Swann MD Unavailable Unavailable Fadia Swann MD Unavailable Unavailable Fadia Swann MD Unavailable Unavailable Fadia Swann MD Unavailable Unavailable Fadia Swann MD Unavailable Unavailable Fadia Swann MD Unavailable Unavailable Fadia Swann MD Unavailable Unavailable Fadia Swann MD Unavailable Unavailable Fadia Swann MD Unavailable Unavailable Fadia Swann MD Unavailable Unavailable Fadia Swann MD Unavailable Unavailable Fadia Swann MD Unavailable Unavailable Fadia Swann MD Unavailable Unavailable Fadia Swann MD Unavailable Unavailable Fadia Swann MD Unavailable Unavailable Fadia Swann MD Unavailable Unavailable Fadia Swann MD Unavailable Unavailable Fadia Swann MD Unavailable Unavailable Fadia Swann MD Unavailable Unavailable Fadia Swann MD Unavailable Unavailable Fadia Swann MD Unavailable Unavailable Fadia Swann MD Unavailable Unavailable Fadia Swann MD Unavailable Unavailable Fadia Swann MD Unavailable Unavailable Fadia Swann MD Unavailable Unavailable Fadia Swann MD Unavailable Unavailable Fadia Swann MD Unavailable Unavailable Fadia Swann MD Unavailable Unavailable Fadia Swann MD Unavailable Unavailable Fadia Swann MD Unavailable Unavailable Fadia Swann MD Unavailable Unavailable Fadia Swann MD Unavailable Unavailable Fadia Swann MD Unavailable Unavailable Fadia Swann MD Unavailable Unavailable Fadia Swann MD Unavailable Unavailable Fadia Swann MD Unavailable Unavailable Fadia Swann MD Unavailable Unavailable Fadia Swann MD Unavailable Unavailable Fadia Swann MD Unavailable Unavailable Fadia Swann MD Unavailable Unavailable Fadia Swann MD Unavailable Unavailable Fadia Swann MD Unavailable Unavailable Fadia Swann MD Unavailable Unavailable Fadia Swann MD Unavailable Unavailable Fadia Swann MD Unavailable Unavailable Fadia Swann MD Unavailable Unavailable Fadai Swann MD Unavailable Unavailable Fadia Swann MD Unavailable Unavailable Fadia Swann MD Unavailable Unavailable Ofelia Sims MD Unavailable Unavailable Ofelia Sims MD Unavailable Unavailable Ofelia Sims MD Unavailable Unavailable Ofelia Sims MD Unavailable Unavailable Ofelia Sims MD Unavailable Unavailable BethanyOfelia aragon MD Unavailable Unavailable BethanyOfelia aragon MD Unavailable Unavailable BethanyOfelia MD Unavailable Unavailable BethanyOfelia aragon MD Unavailable Unavailable BethanyOfelia MD Unavailable Unavailable BethanyOfelia aragon MD Unavailable Unavailable BethanyOfelia MD Unavailable Unavailable BethanyOfelia MD Unavailable Unavailable BethanyOfelia MD Unavailable Unavailable BethanyOfelia MD Unavailable Unavailable BethanyOfelia MD Unavailable Unavailable BethanyOfelia MD Unavailable Unavailable BethanyOfelia MD Unavailable Unavailable BethanyOfelia MD Unavailable Unavailable BethanyOfelia aragon MD Unavailable Unavailable BethanyOfelia aragon MD Unavailable Unavailable BethanyOfelia aragon MD Unavailable Unavailable Ofelia Sims MD Unavailable Unavailable Ofelia Sims MD Unavailable Unavailable Ofelia Sims MD Unavailable Unavailable Ofelia Sims MD Unavailable Unavailable Ofelia Sims MD Unavailable Unavailable Ofelia Sims MD Unavailable Unavailable Ofelia Sims MD Unavailable Unavailable Ofelia Sims MD Unavailable Unavailable Ofelia Sims MD Unavailable Unavailable Ofelia Sims MD Unavailable Unavailable Ofelia Sims MD Unavailable Unavailable Ofelia Sims MD Unavailable Unavailable Ofelia Sims MD Unavailable Unavailable Ofelia Sims MD Unavailable Unavailable Ofelia Sims MD Unavailable Unavailable Ofelia Sims MD Unavailable Unavailable Ofelia Sims MD Unavailable Unavailable Ofelia Sims MD Unavailable Unavailable Ofelia Sims MD Unavailable Unavailable Ofelia Sims MD Unavailable Unavailable Ofelia Sims MD Unavailable Unavailable Ofelia Sims MD Unavailable Unavailable Ofelia Sims MD Unavailable Unavailable Ofelia Sims MD Unavailable Unavailable Ofelia Sims MD Unavailable Unavailable Ofelia Sims MD Unavailable Unavailable Ofelia Sims MD Unavailable Unavailable Ofelia Sims MD Unavailable Unavailable Ofelia Sims MD Unavailable Unavailable Ministerio Anaya MD Unavailable Unavailable Ministerio Anaya MD Unavailable Unavailable Ministerio Anaya MD Unavailable Unavailable Ministerio Anaya MD Unavailable Unavailable Ministerio Anaya MD Unavailable Unavailable Ministerio Anaya MD Unavailable Unavailable Ministerio Anaya MD Unavailable Unavailable Ministerio Anaya MD Unavailable Unavailable LynMinisterio arias MD Unavailable Unavailable LyndaMinisterio marin MD Unavailable Unavailable LyndaMinisterio marin MD Unavailable Unavailable LyndaMinisterio marin MD Unavailable Unavailable LyndaMinisterio marin MD Unavailable Unavailable LyndaMinisterio marin MD Unavailable Unavailable LyndaMinisterio marin MD Unavailable Unavailable LyndaMinisterio marin MD Unavailable Unavailable LyndaMinisterio marin MD Unavailable Unavailable LyndaMinisterio marin MD Unavailable Unavailable LyndaMinisterio marin MD Unavailable Unavailable LyndaMinisterio marin MD Unavailable Unavailable LyndaMinisterio marin MD Unavailable Unavailable LyndaMinisterio marin MD Unavailable Unavailable LyndaMinisterio marin MD Unavailable Unavailable LyndaMinisterio marin MD Unavailable Unavailable LyndaMinisterio marin MD Unavailable Unavailable LyndaMinisterio marin MD Unavailable Unavailable LyndaMinisterio marin MD Unavailable Unavailable LyndaMinisterio marin MD Unavailable Unavailable LyndaMinisterio marin MD Unavailable Unavailable LyndaMinisterio marin MD Unavailable Unavailable LyndaMinisterio marin MD Unavailable Unavailable LyndaMinisterio marin MD Unavailable Unavailable LyndaMinisterio marin MD Unavailable Unavailable LynMinisterio arias MD Unavailable Unavailable LyndaMinisterio marin MD Unavailable Unavailable LynMinisterio arias MD Unavailable Unavailable LyndaMinisterio marin MD Unavailable Unavailable LyndaMinisterio marin MD Unavailable Unavailable LyndaMinisterio marin MD Unavailable Unavailable LynMinisterio arias MD Unavailable Unavailable LynMinisterio arias MD Unavailable Unavailable LynMinisterio arias MD Unavailable Unavailable LynMinisterio arias MD Unavailable Unavailable LynMinisterio arias MD Unavailable Unavailable LyndaMinisterio marin MD Unavailable Unavailable LynMinisterio arias MD Unavailable Unavailable LynMinisterio arias MD Unavailable Unavailable LynMinisterio arias MD Unavailable Unavailable LynMinisterio raias MD Unavailable Unavailable LyndaMinisterio marin MD Unavailable Unavailable LyndaMinisterio marin MD Unavailable Unavailable LyndaMinisterio marin MD Unavailable Unavailable LyndaMinisterio marin MD Unavailable Unavailable LynMinisterio arias MD Unavailable Unavailable LyndaMinisterio marin MD Unavailable Unavailable LynMinisterio arias MD Unavailable Unavailable LyndaMinisterio marin MD Unavailable Unavailable LyndaMinisterio marin MD Unavailable Unavailable LyndaMinisterio marin MD Unavailable Unavailable LyndakerMinisterio MD Unavailable Unavailable Lyndaker, Ministerio Fair MD Unavailable Unavailable Lyndaker, Ministerio Fair MD Unavailable Unavailable Lyndaker, Ministerio Fair MD Unavailable Unavailable Lyndaker, Ministerio Fair MD Unavailable Unavailable Lyndaker, Ministerio Fair MD Unavailable Unavailable LyndakerMinisterio MD Unavailable Unavailable Lyndaker, Ministerio Fair MD Unavailable Unavailable Lyndaker, Ministerio Fair MD Unavailable Unavailable Lyndaker, Ministerio Fair MD Unavailable Unavailable Lyndaker, Ministerio Fair MD Unavailable Unavailable Lyndaker, Ministerio Fair MD Unavailable Unavailable LyndakerMinisterio MD Unavailable Unavailable Lyndaker, Ministerio Fair MD Unavailable Unavailable Lyndaker, Ministerio Fair MD Unavailable Unavailable Lyndaker, Ministerio Fair MD Unavailable Unavailable Lyndaker, Ministerio Fair MD Unavailable Unavailable Lyndaker, Ministerio Fair MD Unavailable Unavailable LyndaMinisterio marin MD Unavailable Unavailable LyndakerMinisterio MD Unavailable Unavailable LyndakerMinisterio MD Unavailable Unavailable Lyndaker, Ministerio Fair MD Unavailable Unavailable LyndakerMinisterio MD Unavailable Unavailable LyndakerMinisterio MD Unavailable Unavailable LyndaMinisterio marin MD Unavailable Unavailable LyndaMinisterio marin MD Unavailable Unavailable LyndaMinisterio marin MD Unavailable Unavailable LyndakerMinisterio MD Unavailable Unavailable LyndaMinisterio marin MD Unavailable Unavailable LyndaMinisterio marin MD Unavailable Unavailable LyndaMinisterio marin MD Unavailable Unavailable LyndaMinisterio marin MD Unavailable Unavailable LyndaMinisterio marin MD Unavailable Unavailable LyndakerMinisterio MD Unavailable Unavailable LyndakerMinisterio MD Unavailable Unavailable LyndakerMinisterio MD Unavailable Unavailable LyndakerMinisterio MD Unavailable Unavailable LyndaMinisterio marin MD Unavailable Unavailable LyndakerMinisterio MD Unavailable Unavailable ROGGIE J SILVIA TRUCK STRIKER-C Unavailable Unavailable ROGGIE, J SILVIA TRUCK STRIKER-C Unavailable Unavailable ROGGIE, J SILVIA TRUCK STRIKER-C Unavailable Unavailable JIMMY, B JULITO SALVAGE DETERMINER Unavailable Unavailable JIMMY, B JULITO SALVAGE DETERMINER Unavailable Unavailable JIMMY, B JULITO SALVAGE DETERMINER Unavailable Unavailable JIMMY, B JULITO SALVAGE DETERMINER Unavailable Unavailable JIMMY, B JULITO SALVAGE DETERMINER Unavailable Unavailable JIMMY, B JULITO SALVAGE DETERMINER Unavailable Unavailable JIMMY, B JULITO SALVAGE DETERMINER Unavailable Unavailable JIMMY, B JULITO SALVAGE DETERMINER Unavailable Unavailable JIMMY, B JULITO SALVAGE DETERMINER Unavailable Unavailable JIMMY, B JULITO SALVAGE DETERMINER Unavailable Unavailable JIMMY, B JULITO SALVAGE DETERMINER Unavailable Unavailable JIMMY, B JULITO SALVAGE DETERMINER Unavailable Unavailable JIMMY, B JULITO SALVAGE DETERMINER Unavailable Unavailable JIMMY, B JULITO SALVAGE DETERMINER Unavailable Unavailable JIMMY, B JULITO SALVAGE DETERMINER Unavailable Unavailable JIMMY, B JULITO SALVAGE DETERMINER Unavailable Unavailable JIMMY, B JULITO SALVAGE DETERMINER Unavailable Unavailable JIMMY, B JULITO SALVAGE DETERMINER Unavailable Unavailable JIMMY, B JULITO SALVAGE DETERMINER Unavailable Unavailable JIMMY, B JULITO SALVAGE DETERMINER Unavailable Unavailable JIMMY, B JULITO SALVAGE DETERMINER Unavailable Unavailable JIMMY, B JULITO SALVAGE DETERMINER Unavailable Unavailable JIMMY, B JULITO SALVAGE DETERMINER Unavailable Unavailable JIMMY, B JULITO SALVAGE DETERMINER Unavailable Unavailable JIMMY, B JULITO SALVAGE DETERMINER Unavailable Unavailable JIMMY, B JULITO SALVAGE DETERMINER Unavailable Unavailable JIMMY, B JULITO SALVAGE DETERMINER Unavailable Unavailable JIMMY, B JULITO SALVAGE DETERMINER Unavailable Unavailable JIMMY, B JULITO SALVAGE DETERMINER Unavailable Unavailable JIMMY, B JULITO SALVAGE DETERMINER Unavailable Unavailable JIMMY, B JULITO SALVAGE DETERMINER Unavailable Unavailable JIMMY, B JULITO SALVAGE DETERMINER Unavailable Unavailable JIMMY, B JULITO SALVAGE DETERMINER Unavailable Unavailable JIMMY, B JULITO SALVAGE DETERMINER Unavailable Unavailable JIMMY, B JULITO SALVAGE DETERMINER Unavailable Unavailable JIMMY, B JULITO SALVAGE DETERMINER Unavailable Unavailable JIMMY, B JULITO SALVAGE DETERMINER Unavailable Unavailable JIMMY, B JULITO SALVAGE DETERMINER Unavailable Unavailable JIMMY, B JULITO SALVAGE DETERMINER Unavailable Unavailable JIMMY, B JULITO SALVAGE DETERMINER Unavailable Unavailable JIMMY, B JULITO SALVAGE DETERMINER Unavailable Unavailable JIMMY, B JULITO SALVAGE DETERMINER Unavailable Unavailable JIMMY, B JULITO SALVAGE DETERMINER Unavailable Unavailable JIMMY, B JULITO SALVAGE DETERMINER Unavailable Unavailable JIMMY, B JULITO SALVAGE DETERMINER Unavailable Unavailable JIMMY, B JULITO SALVAGE DETERMINER Unavailable Unavailable JIMMY, B JULITO SALVAGE DETERMINER Unavailable Unavailable JIMMY, B JULITO SALVAGE DETERMINER Unavailable Unavailable JIMMY, B JULITO SALVAGE DETERMINER Unavailable Unavailable JIMMY, B JULITO SALVAGE DETERMINER Unavailable Unavailable JIMMY, B JULITO SALVAGE DETERMINER Unavailable Unavailable JIMMY, B JULITO SALVAGE DETERMINER Unavailable Unavailable JIMMY, B JULITO SALVAGE DETERMINER Unavailable Unavailable JIMMY, B JULITO SALVAGE DETERMINER Unavailable Unavailable JIMMY, B JULITO SALVAGE DETERMINER Unavailable Unavailable JIMMY, B JULITO SALVAGE DETERMINER Unavailable Unavailable JIMMY, B JULITO SALVAGE DETERMINER Unavailable Unavailable JIMMY, B JULITO SALVAGE DETERMINER Unavailable Unavailable JIMMY, B JULITO SALVAGE DETERMINER Unavailable Unavailable JIMMY, B JULITO SALVAGE DETERMINER Unavailable Unavailable JIMMY, B JULITO SALVAGE DETERMINER Unavailable Unavailable JIMMY, B JULITO SALVAGE DETERMINER Unavailable Unavailable Gisselle, E Patsy MD Unavailable Unavailable Gisselle, E Patsy MD Unavailable Unavailable Gisselle, E Patsy MD Unavailable Unavailable Gisselle, E Patsy MD Unavailable Unavailable Gisselle, E Patsy MD Unavailable Unavailable Gisselle, E Patsy MD Unavailable Unavailable Gisselle, E Patsy MD Unavailable Unavailable Gisselle, E Patsy MD Unavailable Unavailable Gisselle, E Patsy MD Unavailable Unavailable Gisselle, E Patsy MD Unavailable Unavailable Gisselle, E Patsy MD Unavailable Unavailable Gisselle, E Patsy MD Unavailable Unavailable Gisselle, E Patsy MD Unavailable Unavailable Gisselle, E Patsy MD Unavailable Unavailable Gisselle, E Patsy MD Unavailable Unavailable Gisselle, E Patsy MD Unavailable Unavailable Gisselle, E Patsy MD Unavailable Unavailable Gisselle, E Patsy MD Unavailable Unavailable Gisselle, E Patsy MD Unavailable Unavailable Gisselle, E Patsy MD Unavailable Unavailable Gisselle, E Patsy MD Unavailable Unavailable Gisselle, E Patsy MD Unavailable Unavailable Gisselle, E Pasty MD Unavailable Unavailable Gisselle, E Patsy MD Unavailable Unavailable Gisselle, E Patsy MD Unavailable Unavailable Gisselle, E Patsy MD Unavailable Unavailable Gisselle, E Patsy MD Unavailable Unavailable Gisselle, E Patsy MD Unavailable Unavailable Gisselle, E Patsy MD Unavailable Unavailable Gisselle, E Patsy MD Unavailable Unavailable Gisselle, E Patsy MD Unavailable Unavailable Gisselle, E Patsy MD Unavailable Unavailable Gisselle, E Patsy MD Unavailable Unavailable Gisselle, E Patsy MD Unavailable Unavailable Gisselle, E Patsy MD Unavailable Unavailable Gisselle, E Patsy MD Unavailable Unavailable Gisselle, E Patsy MD Unavailable Unavailable Gisselle, E Patsy MD Unavailable Unavailable Gisselle, E Patsy MD Unavailable Unavailable Gisselle, E Patsy MD Unavailable Unavailable Gisselle, E Patsy MD Unavailable Unavailable Gsiselle, E Patsy MD Unavailable Unavailable Gisselle, E Patsy MD Unavailable Unavailable Gisselle, E Patsy MD Unavailable Unavailable Clementine Pitts MD Unavailable Unavailable Clementine Pitts MD Unavailable Unavailable GisselleClementine juares MD Unavailable Unavailable Clemnetine Pitts MD Unavailable Unavailable Gisselle, Clementine Garner MD Unavailable Unavailable Gisselle, Clementine Garner MD Unavailable Unavailable Gisselle, Clementine Garner MD Unavailable Unavailable Gisselle, Clementine Garner MD Unavailable Unavailable Gisselle, Clementine Garner MD Unavailable Unavailable Gisselle, E Patsy NAVARRO Unavailable Unavailable Clementine Pitts MD Unavailable Unavailable Ministerio Anaya MD Unavailable Unavailable LynMinisterio arias MD Unavailable Unavailable LynMinisterio arias MD Unavailable Unavailable LynMinisterio arias MD Unavailable Unavailable LynMinisterio arias MD Unavailable Unavailable Ministerio Anaya MD Unavailable Unavailable Ministerio Anaya MD Unavailable Unavailable LynMinisterio arias MD Unavailable Unavailable Ministerio Anaya MD Unavailable Unavailable Ministerio Anaya MD Unavailable Unavailable LynMinisterio arias MD Unavailable Unavailable LynMinisterio arias MD Unavailable Unavailable Ministerio Anaya MD Unavailable Unavailable LynMinisterio arias MD Unavailable Unavailable LynMinisterio arias MD Unavailable Unavailable LynMinisterio arias MD Unavailable Unavailable Ministerio Anaya MD Unavailable Unavailable Ministerio Anaya MD Unavailable Unavailable Ministerio Anaya MD Unavailable Unavailable LynMinisterio arias MD Unavailable Unavailable LynMinisterio arias MD Unavailable Unavailable Ministerio Anaya MD Unavailable Unavailable Ministerio Anaya MD Unavailable Unavailable LynMinisterio arias MD Unavailable Unavailable LynMinisterio arias MD Unavailable Unavailable LynMinisterio arias MD Unavailable Unavailable LynMinisterio arias MD Unavailable Unavailable LynMinisterio arias MD Unavailable Unavailable LynMinisterio arias MD Unavailable Unavailable Ministerio Anaya MD Unavailable Unavailable LynMinisterio arias MD Unavailable Unavailable LynMinisterio arias MD Unavailable Unavailable LynMinisterio arias MD Unavailable Unavailable LynMinisterio arias MD Unavailable Unavailable LynMinisterio arias MD Unavailable Unavailable LynMinisterio arias MD Unavailable Unavailable LynMinisterio arias MD Unavailable Unavailable LynMinisterio arias MD Unavailable Unavailable LynMinisterio arias MD Unavailable Unavailable LynMinisterio arias MD Unavailable Unavailable LyndaMinisterio marin MD Unavailable Unavailable LyndaMinisterio marin MD Unavailable Unavailable LyndaMinisterio marin MD Unavailable Unavailable LyndaMinisterio marin MD Unavailable Unavailable LyndaMinisterio marin MD Unavailable Unavailable LyndaMinisterio marin MD Unavailable Unavailable LyndaMinisterio marin MD Unavailable Unavailable LyndaMinisterio marin MD Unavailable Unavailable LyndaMinisterio marin MD Unavailable Unavailable LyndaMinisterio marin MD Unavailable Unavailable LyndaMinisterio marin MD Unavailable Unavailable LyndaMinisterio marin MD Unavailable Unavailable LyndaMinisterio marin MD Unavailable Unavailable LyndaMinisterio marin MD Unavailable Unavailable LyndaMinisterio marin MD Unavailable Unavailable LyndaMinisterio marin MD Unavailable Unavailable LyndaMinisterio marin MD Unavailable Unavailable LyndaMinisterio marin MD Unavailable Unavailable LyndaMinisterio marin MD Unavailable Unavailable LyndaMinisterio marin MD Unavailable Unavailable LyndaMinisterio marin MD Unavailable Unavailable LyndaMinisterio marin MD Unavailable Unavailable LyndaMinisterio marin MD Unavailable Unavailable LyndaMinisterio marin MD Unavailable Unavailable LyndaMinisterio marin MD Unavailable Unavailable LyndaMinisterio marin MD Unavailable Unavailable LynMinisterio arias MD Unavailable Unavailable LyndaMinisterio marin MD Unavailable Unavailable LyndaMinisterio marin MD Unavailable Unavailable LyndaMinisterio marin MD Unavailable Unavailable LynMinisterio arias MD Unavailable Unavailable LynMinisterio arias MD Unavailable Unavailable LynMinisterio arias MD Unavailable Unavailable LynMinisterio arias MD Unavailable Unavailable LynMinisterio arias MD Unavailable Unavailable LyndaMinisterio marin MD Unavailable Unavailable LynMinisterio arias MD Unavailable Unavailable LynMinisterio arias MD Unavailable Unavailable LynMinisterio arias MD Unavailable Unavailable LynMinisterio arias MD Unavailable Unavailable LyndaMinisterio marin MD Unavailable Unavailable LyndaMinisterio marin MD Unavailable Unavailable LyndaMinisterio marin MD Unavailable Unavailable LyndaMinisterio marin MD Unavailable Unavailable LynMinisterio arias MD Unavailable Unavailable LyndaMinisterio marin MD Unavailable Unavailable LyndaMinisterio marin MD Unavailable Unavailable LyndaMinisterio marin MD Unavailable Unavailable LyndaMinisterio marin MD Unavailable Unavailable LyndaMinisterio marin MD Unavailable Unavailable Ministerio Anaya MD Unavailable Unavailable Ministerio Anaya MD Unavailable Unavailable Ministerio Anaya MD Unavailable Unavailable Ministerio Anaya MD Unavailable Unavailable Ministerio Anaya MD Unavailable Unavailable Ministerio Anaya MD Unavailable Unavailable Ministerio Anaya MD Unavailable Unavailable Ministerio Anaya MD Unavailable Unavailable ROGGIE, J SILVIA TRUCK STRIKER-C Unavailable Unavailable ROGGIE, J SILVIA TRUCK STRIKER-C Unavailable Unavailable ROGGIE, J SILVIA TRUCK STRIKER-C Unavailable Unavailable Gisselle, E Patsy MD Unavailable Unavailable Gisselle, E Patsy MD Unavailable Unavailable Gisselle, E Patsy MD Unavailable Unavailable Gisselle, E Patsy MD Unavailable Unavailable Gisselle, E Patsy MD Unavailable Unavailable Gisselle, E Patsy MD Unavailable Unavailable Gisselle, E Patsy MD Unavailable Unavailable Gisselle, E Patsy MD Unavailable Unavailable Gisselle, E Patsy MD Unavailable Unavailable Gisselle, E Patsy MD Unavailable Unavailable Gisselle, E Patsy MD Unavailable Unavailable Gisselle, E Patsy MD Unavailable Unavailable Gisselle, E Patsy MD Unavailable Unavailable Gisselle, E Patsy MD Unavailable Unavailable Gisselle, E Patsy MD Unavailable Unavailable Gisselle, E Patsy MD Unavailable Unavailable Gisselle, E Patsy MD Unavailable Unavailable Gisselle, E Patsy MD Unavailable Unavailable Gisselle, E Patsy MD Unavailable Unavailable Gisselle, E Patsy MD Unavailable Unavailable Gisselle, E Patsy MD Unavailable Unavailable Gisselle, E Patsy MD Unavailable Unavailable Gisselle, E Patsy MD Unavailable Unavailable Gisselle, E Patsy MD Unavailable Unavailable Gisselle, E Patsy MD Unavailable Unavailable Gisselle, E Patsy MD Unavailable Unavailable Gisselle, E Patsy MD Unavailable Unavailable Gisselle, E Patsy MD Unavailable Unavailable Gisselle, E Patsy MD Unavailable Unavailable Gisselle, E Patsy MD Unavailable Unavailable Gisselle, E Patsy MD Unavailable Unavailable Gisselle, E Patsy MD Unavailable Unavailable Gisselle, E Patsy MD Unavailable Unavailable Gisselle, E Patsy MD Unavailable Unavailable Gisselle, E Patsy MD Unavailable Unavailable Gisselle, E Patsy MD Unavailable Unavailable Gisselle, E Patsy MD Unavailable Unavailable Gisselle, E Patsy MD Unavailable Unavailable Gisselle, E Patsy MD Unavailable Unavailable Gisselle, E Patsy MD Unavailable Unavailable Gisselle, E Patsy MD Unavailable Unavailable Gisselle, E Patsy MD Unavailable Unavailable Gisselle, E Patsy MD Unavailable Unavailable Gisselle, E Patsy MD Unavailable Unavailable Gisselle, E Patsy MD Unavailable Unavailable Gisselle, E Patsy MD Unavailable Unavailable Gisselle, E Patsy MD Unavailable Unavailable Gisselle, E Aptsy MD Unavailable Unavailable Gisselle, E Patsy MD Unavailable Unavailable Gisselle, E Patsy MD Unavailable Unavailable Gisselle, E Patsy MD Unavailable Unavailable Gisselle, E Patsy MD Unavailable Unavailable Gisselle, E Patsy MD Unavailable Unavailable Gisselle, E Patsy MD Unavailable Unavailable Gisselle, E Patsy MD Unavailable Unavailable Re-disclosure Warning The records that you are about to access may contain information from federally-assisted alcohol or drug abuse programs. If such information is present, then the following federally mandated warning applies: This information has been disclosed to you from records protected by federal confidentiality rules (42 CFR part 2). The federal rules prohibit you from making any further disclosure of this information unless further disclosure is expressly permitted by the written consent of the person to whom it pertains or as otherwise permitted by 42 CFR part 2. A general authorization for the release of medical or other information is NOT sufficient for this purpose. The Federal rules restrict any use of the information to criminally investigate or prosecute any alcohol or drug abuse patient.The records that you are about to access may contain highly sensitive health information, the redisclosure of which is protected by Article 27-F of the [facility] Public Health law. If you continue you may have access to information: Regarding HIV / AIDS; Provided by facilities licensed or operated by the [facility] Office of Mental Health; or Provided by the [facility] Office for People With Developmental Disabilities. If such information is present, then the following [facility] mandated warning applies: This information has been disclosed to you from confidential records which are protected by state law. State law prohibits you from making any further disclosure of this information without the specific written consent of the person to whom it pertains, or as otherwise permitted by law. Any unauthorized further disclosure in violation of state law may result in a fine or senior care sentence or both. A general authorization for the release of medical or other information is NOT sufficient authorization for further disc losure. Allergies and Adverse Reactions Type Description Substance Reaction Status Data Source(s ) Allergy to substance Allergy to substance Allergy to substance [facility] [facility] ([facility]) Allergy to substance Allergy to substance Allergy to substance [facility] [facility] ([facility]) Family History Family Member Name Family Member Gender Family Member Status Date o f Status Description Data Source(s) Unknown Unknown Problem [facility] ([facility]) mother Unknown Female Problem [facility] Encounters Encounter Providers Location Date Indications Data Source(s ) Outpatient<td ID="encounterTypeDescripti onID0">followup</td><td>Silvia SANCHEZ</td><td>[facility]</td><td>04/16/2021</td><td>8:57AM</td><td>9:28AM</td><td><content ID="encounterDiagnosisID0-0">Abdominal Pain</content>, <content ID="encounterDiagnosisID0-1">Hypertension (Systemic)</content>, <content ID="encounterDiagnosisID0-2">Hypothyroidism</content>, <content ID="encounterDiagnosisID0-3">Polyps Colon</content></td> Attender: SILVIA SANCHEZ [facility] 04/16/2021 08:57:00 A M EST - 04/16/2021 09:28:00 AM EST Abdominal PainHypertension (Systemic)Polyps ColonHypot hyroidism [facility] ([facility]) Abdominal Pain Hypertension (Systemic) Polyps Colon Hypothyroidism Outpatient Attender: SILVIA SANCHEZ 04/15/2021 09:43:0 0 AM EST D50.9 [facility] D50.9 Magdiel Swann MD: [address] [place] [phone], Ph. Attender: Magdiel Swann MD [facility] Medical 04/01/2021 12:00:00 AM EDT [place] ([facility]) OFFICE OUTPATIENT VISIT 15 MINUTES Attender: JULITO MARQUEZ NP Physical Therapy 03/29/2021 11:15:00 AM EDT MED[facility] ([facility]) Outpatient<td ID="encounterTypeDescripti onID1">followup</td><td>Silvia SANCHEZ</td><td>[facility], [facility]</td><td>03/19/2021</td><td>3:38PM</td><td>4:13PM</td><td><content ID="encounterDiagnosisID1-0">Fatigue</content>, <content ID="encounterDiagnosisID1-1">Hypothyroidism</content>, <content ID="encounterDiagnosisID1-2">Polyps Colon</content>, <content ID="encounterDiagnosisID1-3">Hypertension (Systemic)</content></td> Attender: SILVIA SANCHEZ [facility], [facility] 03/19/2021 03:38:00 P M EDT - 03/19/2021 04:13:00 PM EDT Hypertension (Systemic)Hypertension (Systemic)FatigueFatigueFatiguePolyps ColonHypothyroidismPolyps ColonHypothyroidismPolyps ColonHypothyroidism [place] ([facility]) Hypertension (Systemic) Hypertension (Systemic) Fatigue Fatigue Fatigue Polyps Colon Hypothyroidism Polyps Colon Hypothyroidism Polyps Colon Hypothyroidism Outpatient<td ID="encounterTypeDescripti onID2">Telehealth communication</td><td>Silvia Lomax</td><td></td><td>03/16/2021</td><td>03/12/2021 8:33AM</td><td>03/12/2021 11:59PM</td><td></td> Attender: SILVIA SANCHEZ 08:33:00 AM EDT - 03/12/2021 11:59:00 PM EDT [facility]) <td ID="encounterTypeDescriptionID3">tristian sing visit</td><td>Patsy Pitts MD</td><td>[facility], [facility]</td><td>03/12/2021</td><td>8:28AM</td><td>8:48AM</td><td></td>Outpatient Attender: Patsy Pitts MD [facility], [facility] 03/12/2021 08:28:00 AM EDT - 03/12/2021 08:48:00 AM EDT [facility] ([facility]) Outpatient Attender: SILVIA SANCHEZ 03/12/2021 08:24:0 0 AM EDT K86.1 [facility] K86.1 <td ID="encounterTypeDescriptionID4">Pro blem visit - not contagious</td><td>Silvia SANCHEZ</td><td>[facility], [facility]</td><td>03/11/2021</td><td>3:06PM</td><td>4:02PM</td><td><content ID="encounterDiagnosisID4-0">Anemia</content>, <content ID="encounterDiagnosisID4-1">Pancreatitis</content>, <content ID="encounterDiagnosisID4-2">Peripheral Neuropathy</content></td>Outpatient Attender: SILVIA SANCHEZ [facility], [facility] 03/11/2021 03:06:00 PM EDT - 03/11/2021 04:02:00 PM EDT Peripheral NeuropathyPancreatitisAnemiaPeripheral NeuropathyPancreatitisAnemiaPeripheral NeuropathyPancreatitisAnemiaPeripheral NeuropathyPancreatitisAnemiaPeripheral NeuropathyPancreatitisAnemiaPeripheral NeuropathyPancreatitisAnemia [facility] ([facility]) Peripheral Neuropathy Pancreatitis Anemia Peripheral Neuropathy Pancreatitis Anemia Peripheral Neuropathy Pancreatitis Anemia Peripheral Neuropathy Pancreatitis Anemia Peripheral Neuropathy Pancreatitis Anemia Peripheral Neuropathy Pancreatitis Anemia Outpatient Attender: Chino Sims MD Main Office 11/05/2020 10:00:00 AM EDT [facility] ([facility]) Magdiel Swann MD: [address] [place] [phone], Ph. Attender: Magdiel Swann MD [facility] Medical 09/07/2020 12:00:00 AM EDT JANESSA ([facility]) Magdiel Swann MD: [address] [place] [phone], Ph. Attender: Magdiel Swann MD [facility] Medical 09/07/2020 12:00:00 AM EDT JANESSA ([facility]) Outpatient<td ID="encounterTypeDescripti onID5">nursing visit</td><td>Marv Anaya MD</td><td>[facility]</td><td>07/27/2020</td><td>1:41PM</td><td>2:10PM</td><td></td> Attender: Marv Anaya MD [facility] 07/27/2020 01:41:00 P M EST - 07/27/2020 02:10:15 PM EST [facility] ([facility]) Outpatient Attender: Marv Anaya MD 07/27/2020 01:30:0 0 PM EST R39.82 [facility] R39.82 Outpatient [address] [facility], [facility] [phone] 07/06/2020 12:00:00 AM EST eCW1 (Critical access hospital) Outpatient Attender: JULITO MARQUEZ NP Physical Therapy 07:30:00 AM EST MED[facility] ([facility]) Outpatient Attender: Patsy Pitts MD 05/08/2020 03:00:00 PM EST Z12.4 [facility] Z12.4 Outpatient<td ID="encounterTypeDescripti onID6">ANNUAL PE-followup exam</td><td>Patsy Pitts MD</td><td>[facility]</td><td>05/08/2020</td><td>2:29PM</td><td>3:20PM</td><td><content ID="encounterDiagnosisID6-0">Hypothyroidism</content>, <content ID="encounterDiagnosisID6-1">Vaginitis Atrophic</content>, <content ID="encounterDiagnosisID6-2">Polyps Colon</content>, <content ID="encounterDiagnosisID6-3">Routine History and Physical Adult (18 - 64 Yrs)</content>, <content ID="encounterDiagnosisID6-4">Routine Gynecological Exam</content></td> Attender: Patsy Pitts MD [facility] 05/08/2020 02:29:00 PM EST - 05/08/2020 03:20:00 PM ES T Routine Gynecological ExamRoutine History and Physical Adult (18 - 64 Yrs)Routine Gynecological ExamRoutine History and Physical Adult (18 - 64 Yrs)Routine Gynecological ExamRoutine History and Physical Adult (18 - 64 Yrs)Routine Gynecological ExamRoutine History and Physical Adult (18 - 64 Yrs)Routine Gynecological ExamRoutine History and Physical Adult (18 - 64 Yrs)Routine Gynecological ExamRoutine History and Physical Adult (18 - 64 Yrs)Routine Gynecological ExamRoutine History and Physical Adult (18 - 64 Yrs)Polyps ColonVaginitis AtrophicHypothyroidismPolyps ColonVaginitis AtrophicHypothyroidismPolyps ColonVaginitis AtrophicHypothyroidismPolyps ColonVaginitis Atrophic HypothyroidismPolyps ColonVaginitis AtrophicHypothyroidismPolyps ColonVaginitis AtrophicHypothyroidismPolyps ColonVaginitis AtrophicHypothyroidism [facility]) Routine Gynecological Exam Routine History and Physical Adult (18 - 64 Yrs) Routine Gynecological Exam Routine History and Physical Adult (18 - 64 Yrs) Routine Gynecological Exam Routine History and Physical Adult (18 - 64 Yrs) Routine Gynecological Exam Routine History and Physical Adult (18 - 64 Yrs) Routine Gynecological Exam Routine History and Physical Adult (18 - 64 Yrs) Routine Gynecological Exam Routine History and Physical Adult (18 - 64 Yrs) Routine Gynecological Exam Routine History and Physical Adult (18 - 64 Yrs) Polyps Colon Vaginitis Atrophic Hypothyroidism Polyps Colon Vaginitis Atrophic Hypothyroidism Polyps Colon Vaginitis Atrophic Hypothyroidism Polyps Colon Vaginitis Atrophic Hypothyroidism Polyps Colon Vaginitis Atrophic Hypothyroidism Polyps Colon Vaginitis Atrophic Hypothyroidism Polyps Colon Vaginitis Atrophic Hypothyroidism Outpatient Attender: Chino Sims MD Main Office 04/07/2020 02:30:00 PM [facility] ([facility]) Outpatient Attender: Patsy Pitts MD 02/19/2020 02:46:00 PM EDT SCREEN [facility] SCREEN Immunizations Vaccine Date Status Description Data Source(s) COVID-19, mRNA, LNP-S, PF, 100 mcg/0.5 mL dose 04/01/2021 08 :40:50 PM EDT completed .25 mL [place] ([facility]) COVID-19 VACCINE Moderna 04/01/2021 12:00:00 AM EDT completed [facility]IS Vaccine Series Complete: YESThis Data wa s Submitted to [facility] Via [employer]. Shingrix 03/11/2021 04:03:00 PM EDT completed <td ID="Zuhxxlojitcms-Aujgaaubpne-AV2">Shingrix</td><td ID="ImmunizationDose- 2">1</td><td>03/11/2021</td><td ID="Xpwzwpucihypi-PiypeRxng-IL8">Left Deltoid</td><td></td><td ID="Tytdeufrckevk-Pyygwl-FD8">Complete (Administered)</td><td>[facility]</td><td ID="Oqkvjcykdrngk-Gpqzt-Pftk-Comment-ID2"></td> [facility] ([facility]) IIV3. This is one of two codes replacing CVX 15, which is being retired. 03/11/2021 04:03:00 PM EDT completed <td ID="Kljslfwnwllvz-Vyovcbwdndx-PU6">Influenza, seasonal, injectable</td><td ID="ImmunizationDose-1">2</td><td>03/11/2021</td><td ID="Nuevjiffyedie-AxrknCvdk-LL1">Left Deltoid</td><td></td><td ID="Wgvmbzyskavbu-Mnuxmw-DT7">Complete (Administered)</td><td>[facility]</td><td ID="Sfcsmxwtgnpro-Pxokc-Jesj-Comment-ID1"></td> [facility] ([facility]) COVID-19, mRNA, LNP-S, PF, 100 mcg/0.5 mL dose 09/08/2020 11 :02:10 AM EDT completed 10.5 mL [facility] ([facility]) COVID-19, mRNA, LNP-S, PF, 100 mcg/0.5 mL dose 09/08/2020 11 :02:10 AM EDT completed 10.5 mL [facility] ([facility]) COVID-19 VACCINE Moderna 09/08/2020 12:00:00 AM EDT completed NYSIIS Vaccine Series Complete: YESThis Data wa s Submitted to [facility] Via [employer]. COVID-19 VACCINE Moderna 08/13/2020 12:00:00 AM EST completed [facility]SIIS Vaccine Series Complete: NOThis Data was Submitted to [facility] Via [employer]. IIV3. This is one of two codes replacing CVX 15, which is being retired. 05/08/2020 04:25:00 PM EST completed <td ID="Mlbalcszpecoz-Ykqltkapttq-XF5">Influenza, seasonal, injectable</td><td ID="ImmunizationDose-0">1</td><td>05/08/2020</td><td ID="Ibqtzhikwxwys-YaceyEjuh-YA4">Right Deltoid</td><td></td><td ID="Nwhkjawzzzqfd-Ithpgt-BQ6">Complete (Administered)</td><td>[facility]</td><td ID="Jaeblzjzdkreb-Jpevg-Akvd-Comment-ID0"></td> [facility] ([facility]) Medications Medication Brand Name Start Date Product Form Dose Route Admi nistrative Instructions Pharmacy Instructions Status Indications Reaction Description Data Source(s) 1.479-0.188- 0.225 gram 04/14/2021 12:00:00 AM EST tablet 24 TAKE DIRECTED TAKE DIRECTED SOLD: 04[facility]15/20[facility] 40 mg 04/14/2021 12:00:00 AM EST capsule,delayed release (DR/EC) 90 TAKE ONE CAPSULE BY MOUTH EVERY MORNING TAKE ONE CAPSULE BY MOUTH EVERY MORNING SOLD: 04/15/2021 [facility] 1.479-0.188- 0.225 gram 11/23/2020 12:00:00 AM EDT tablet 24 TAKE BY MOUTH DIRECTED TAKE BY MOUTH DIRECTED SOLD: 11/24/2020 [facility] Sutab Sutab 11/05/2020 12:00:00 AM EDT active [facility] ([facility]) 137 mcg 05/31/2020 12:00:00 AM EST tablet 90 TAKE ONE TABLET BY MOUTH ONCE DAILY MAXIMUM DAILY DOSE = ONE TABLET TAKE ONE TABLET BY MOUTH ONCE DAILY MAXIMUM DAILY DOSE = ONE TABLET SOLD: 08/31/2020 [facility] 137 mcg 05/31/2020 12:00:00 AM EST tablet 90 TAKE ONE TABLET BY MOUTH ONCE DAILY MAXIMUM DAILY DOSE = ONE TABLET TAKE ONE TABLET BY MOUTH ONCE DAILY MAXIMUM DAILY DOSE = ONE TABLET SOLD: 03/24/2021 [facility] 137 mcg 05/31/2020 12:00:00 AM EST tablet 90 TAKE ONE TABLET BY MOUTH ONCE DAILY MAXIMUM DAILY DOSE = ONE TABLET TAKE ONE TABLET BY MOUTH ONCE DAILY MAXIMUM DAILY DOSE = ONE TABLET SOLD: 05/31/2020 [facility] 137 mcg 05/31/2020 12:00:00 AM EST tablet 90 TAKE ONE TABLET BY MOUTH ONCE DAILY MAXIMUM DAILY DOSE = ONE TABLET TAKE ONE TABLET BY MOUTH ONCE DAILY MAXIMUM DAILY DOSE = ONE TABLET SOLD: 12/09/2020 [facility] 25 mcg 05/30/2020 12:00:00 AM EST tablet 90 TAKE ONE TABLET BY MOUTH EVERY DAY MAXIMUM DAILY DOSE = 1 TABLET TAKE ONE TABLET BY MOUTH EVERY DAY MAXIM UM DAILY DOSE = 1 TABLET SOLD: 05/31/2020 [facility] 25 mcg 05/30/2020 12:00:00 AM EST tablet 90 TAKE ONE TABLET BY MOUTH EVERY DAY MAXIMUM DAILY DOSE = 1 TABLET TAKE ONE TABLET BY MOUTH EVERY DAY MAXIM UM DAILY DOSE = 1 TABLET SOLD: 03/25/2021 [facility] 25 mcg 05/30/2020 12:00:00 AM EST tablet 90 TAKE ONE TABLET BY MOUTH EVERY DAY MAXIMUM DAILY DOSE = 1 TABLET TAKE ONE TABLET BY MOUTH EVERY DAY MAXIM UM DAILY DOSE = 1 TABLET SOLD: 08/31/2020 [facility] 25 mcg 05/30/2020 12:00:00 AM EST tablet 90 TAKE ONE TABLET BY MOUTH EVERY DAY MAXIMUM DAILY DOSE = 1 TABLET TAKE ONE TABLET BY MOUTH EVERY DAY MAXIM UM DAILY DOSE = 1 TABLET SOLD: 12/09/2020 [facility] 25 mcg 05/19/2020 12:00:00 AM EST tablet 14 TAKE ONE TABLET BY MOUTH EVERY DAY TAKE ONE TABLET BY MOUTH EVERY DAY SOLD: 05/20/2020 [facility] 137 mcg 05/18/2020 12:00:00 AM EST tablet 14 TAKE ONE TABLET BY MOUTH EVERY DAY TAKE ONE TABLET BY MOUTH EVERY DAY SOLD: 05/18/2020 [facility] 17.5-3.13-1.6 gram 04/08/2020 12:00:00 AM EST recon soln 354 USE DIRECTED USE DIRECTED SOLD: 04/14/2020 [facility] Suprep Bowel Prep Kit Suprep Bowel Prep Kit 04/07/2020 12:00:00 AM EST active [facility] ([facility]) 0.01 % (0.1 mg/gram) 02/05/2020 12:00:00 AM EDT cream 42 INSERT 2 GM VAGINALLY DAILY FOR 1 WEEK, THEN GRADUALLY REDUCE TO 1 GM DAILY FOR 1 WEEK, THEN A MAINTENANCE DOSE OF 1 GM 1-3 TIMES PER WEEK INSERT 2 GM VAGINALLY DAILY FOR 1 WEEK, THEN GRADUALLY REDUCE TO 1 GM DAILY FOR 1 WEEK, THEN A MAINTENANCE DOSE OF 1 GM 1-3 TIMES PER WEEK SOLD: 07/09/2020 [facility] 0.01 % (0.1 mg/gram) 02/05/2020 12:00:00 AM EDT cream 42 INSERT 2 GM VAGINALLY DAILY FOR 1 WEEK, THEN GRADUALLY REDUCE TO 1 GM DAILY FOR 1 WEEK, THEN A MAINTENANCE DOSE OF 1 GM 1-3 TIMES PER WEEK INSERT 2 GM VAGINALLY DAILY FOR 1 WEEK, THEN GRADUALLY REDUCE TO 1 GM DAILY FOR 1 WEEK, THEN A MAINTENANCE DOSE OF 1 GM 1-3 TIMES PER WEEK SOLD: 10/07/2020 [facility] Insurance Providers Payer name Policy type / Coverage type Policy ID Covered libertarian ID Covered libertarian's relationship to kearns Policy [place] Plan Information [place] Medigap Part B [id number] Self V [id number] [place] Med[employer] Part B [id number] Self BS [place] [facility] Part B [id number] Self V [id number] BS [place] [facility] Part B [id number] Self V [id number] BS [place] [facility] Part B [id number] Self BS [place] [facility] Part B [id number] Self V [id number] BS [place] [facility] Part B [id number] Self V [id number] BS [place] [facility] Part B [id number] Self V [id number] BS [place] [facility] Part B [id number] Self Y [id number] BS [place] [facility] Part B [id number] Self BS [place] [facility] Part B [id number] Self Y [id number] BS [place] [facility] Part B [id number] Self Y [id number] [place] PPO 302/307 [id number] SP [id number] [place] PPO 302/307 [id number] SP [id number] BS [place] [facility] Cent[facility] Part B [id number] Self Y [id number] BS [place] [facility] Part B [id number] Self Y [id number] BS [place] [facility] Part B [id number] Self Y [id number] BS [place] Commercial [id number] Self BCBS [place] 130/630 [id number] HU2 [id number] BCBS OF [place] 180/680 [id number] HU2 [id number] BS [place] Commercial [id number] Self V [id number] BS [place] [facility] Part B [id number] Self V [id number] BS [place] [facility] Part B [id number] Self V [id number] [place] PPO 302/307 [id number] SP [id number] [place] Other 0 [id number] Se lf 0 [place] Other 0 [id number] Se lf 0 [place] Other 0 [id number] Se lf 0 [place] Other 0 [id number] Se lf 0 [place] Other 0 [id number] Family Dependent Herber Young 0 [place] Other 0 [id number] Se lf 0 [place] Other 0 [id number] Se lf 0 BS Of [place] Commercial [id number] Self [id number] BCBS/Blue Card Medigap Part B [id number] Family Dependent [id number] BCBS/[employer] Commercial [id number] Self [id number] BS Exchange (Epo,Hmo,Ppo) Commercial [id number] Self BS [place] Commercial [id number] Self Blue Shield MCR Advantage Medigap Part B [id number] Self BS Of [place] [facility] Medical Centergap Part B [id number] Self BS Of [place] Commercial [id number] Self BCBS [place] PPO 302/307 [id number] SP [id number] BCBS [place] PPO 302/307 [id number] SP [id number] BCBS [place] PPO 302/307 [id number] SP [id number] BS [place] Commercial [id number] Family Dependent V [id number] BCBS [place] PPO 302/307 [id number] SP [id number] Blue Shield MCR Advantage Medigap Part B [id number] Self V [id number] [employer] Other 0 [id number] Family Dependent Herber Richardson 0 BCBS of [place] - [facility] Other 0 [id number] Family Dependent Herber Richardson 0 [employer]CE[employer] BCBS B [id number] P [id number] [id number] EXCELLUS BC-BS PPO 306 [id number] SP [id number] BS Of [facility] Part B [id number] Family Dependent [id number] Problems, Conditions, and Diagnoses Code Display Name Description Problem Type Effective Dates Data Source(s) 54650923 Hypertensive disorder, systemic arterial (disorder) Hypertension (Systemic) Problem 03/22/2021 05:13:00 PM EDT [place] ([facility]) 10129186 Hypertensive disorder, systemic arterial (disorder) Hypertension (Systemic) Problem 03/22/2021 05:13:00 PM EDT [place] ([facility]) Z86.018 [id number] History of dysplastic nevus Problem 07/06/2020 12:00:00 AM [place] [address] ([facility]) Surgeries/Procedures Procedure Description Date Indications Data Source(s) OFFICE OUTPATIENT VISIT 15 MINUTES 03/29/2021 12:00:00 AM EDT [facility] ([facility] ) Venipuncture (routine) Venipuncture (routine) 03/12/2021 12:00:00 A M EDT [facility] ([facility]) General Health Panel( CMP, CBC, TSH) General Health Panel( C MP, CBC, TSH) 03/12/2021 12:00:00 AM EDT [facility] ([facility]) Fasting Lipid Profile Fasting Lipid Profile 03/12/2021 12:00:00 AM EDT [facility] ([facility]) HgbA1C HgbA1C 03/12/2021 12:00:00 AM EDT Alvin VAUGHAN ([facility]) EKG- Electrocardiogram/12 lead EKG- Electrocardiogram/12 layne d 03/12/2021 12:00:00 AM EDT [facility] ([facility]) FLUZONE/ multi-dose ( 6mos -older) FLUZONE/ multi-dose ( 6mo s -older) 03/11/2021 12:00:00 AM [facility] ([facility]) IMADM PRQ ID SUBQ/IM NJXS 1 VACCINE ADMINISTRATION 1-IMMUNIZ ATION(adult) 03/11/2021 12:00:00 AM [facility] ([facility]) Shingrix Vaccine(50-64 yr old) Shingrix Vaccine(50-64 yr old ) 03/11/2021 12:00:00 AM [facility] ([facility]) IMADM PRQ ID SUBQ/IM NJXS EA VACCINE ADMINISTRATION 2+ IMMUN IZATION (adult) 03/11/2021 12:00:00 AM [facility] ([facility]) Urinalysis w/o Microscopy Urinalysis w/o Microscopy 07/27/2020 1 2:00:00 AM [facility]) Venipuncture (routine) Venipuncture (routine) 05/08/2020 12:00:00 A M [facility]) Brief Emotional Behavior Assessment Brief Emotional Behavior Assessment 05/08/2020 12:00:00 AM [facility]) Screening papanicolaou smear; obtaining, preparing and conveyance of cervical or vaginal smear to laboratory pap smear colllection 05/08/2020 12:00:00 AM [facility]) Cervical or vaginal cancer screening; pelvic and clini anand breast examination pelvic exam & Breast check 05/08/2020 12:00:00 AM [facility]) FLUZONE/ multi-dose ( 6mos -older) (Distinct Seperate service-same day) FLUZONE/ multi-dose ( 6mos -older) (Distinct Seperate service-same day) 05/08/2020 12:00:00 AM [facility]) IMADM PRQ ID SUBQ/IM NJXS 1 VACCINE ADMINISTRATION 1-IMMUNIZ ATION(adult) 05/08/2020 12:00:00 AM [facility]) CMP-Complete Metabolic Profile CMP-Complete Metabolic Profil e 05/08/2020 12:00:00 AM EST [facility]) Fasting Lipid Profile Fasting Lipid Profile 05/08/2020 12:00:00 AM [facility] ([facility]) Cervical or vaginal cancer screening; pelvic and clini anand breast examination pelvic exam & Breast check 05/08/2020 12:00:00 AM [facility] ([facility]) Screening papanicolaou smear; obtaining, preparing and conveyance of cervical or vaginal smear to laboratory pap smear colllection 05/08/2020 12:00:00 AM [facility]) Brief Emotional Behavior Assessment Brief Emotional Behavior Assessment 05/08/2020 12:00:00 AM [facility] ([facility]) COLSC FLX PROX SPLENIC FLXR RMVL LES SNARE TQ 05/04/20 12:00:00 AM [facility] ([facility]) Results ID Date Data Source [id number] 04/15/2021 03:10:00 PM [facility] Name Value Range Interpretation Code Description Data Yennifer rce(s) Supporting Document(s) Vitamin B12 658 pg/mL 211-911 [facility] ID Date Data Source [id number] 04/15/2021 02:12:00 PM [facility] Name Value Range Interpretation Code Description Data Yennifer rce(s) Supporting Document(s) Leukocytes [#/volume] in Blood by Automated count 4.0 10*3/uL 4.45-10.71 Below low normal [facility] Erythrocytes [#/volume] in Blood by Automated count 5.06 10*6/uL 4.20 -5.40 [facility] Hemoglobin [Moles/volume] in Blood 13.6 g/dL 10.7-15.4 [facility] Hematocrit [Volume Fraction] of Blood by Automated count 42.7 % 3 7-47 N [facility] Erythrocyte mean corpuscular volume [Ent itic volume] in Cord blood by Automated count 84 fL 80-96 N [facility] ital Erythrocyte mean corpuscular hemoglobin [Entitic mass] by Au tomated count 27 pg 27-31 N [facility] Erythrocyte mean corpuscular hemoglobin concentration [Mass/volume] in Cord blood 32 g/dL 33-37 Below low normal [facility] Erythrocyte distribution width [Entitic volume] by Automated cou nt 17 % 11-15 Above high normal [facility] Platelets [#/volume] in Blood by Automated count 249 10*3/uL 130-472 N [facility] Platelet mean volume [Entitic volume] in Blood 10.6 fL 9.1-13.1 N [facility] Neutrophils/100 leukocytes in Blood by Automated count 58.0 % 41- 77 N [facility] Neutrophils [#/volume] in Blood by Automated count 2.3 U 1.7-7.6 N [facility] Lymphocytes/100 leukocytes in Blood by Automated count 30.9 % 14- 46 N [facility] Lymphocytes [#/volume] in Blood by Automated count 1.2 U 0.6-4.6 N [facility] Monocytes/100 leukocytes in Blood by Automated count 8.5 % 4-12 N [facility] Monocytes [#/volume] in Blood by Automated count 0.3 U 0.2-1.2 N [facility] Eosinophils/100 leukocytes in Blood by Automated count 1.5 % 0-7 N [facility] Eosinophils [#/volume] in Blood by Automated count 0.1 U 0.0-0.5 N [facility] Basophils/100 leukocytes in Blood by Automated count 0.8 % 0.4-1 .3 N [facility] Basophils [#/volume] in Blood by Automated count 0.0 U 0.0-0.2 N [facility] NUCLEATED RED BLOOD CELL 0 % [facility] NUCLEATED RED BLOOD CELL# 0 U [facility] Immature granulocytes [Presence] in Blood by Automated count 0-2 N [facility] Immature granulocytes [#/volume] in Blood by Automated count 0.0 U 0-0.1 N [facility] Manual Differential panel - Blood NO [facility] ID Date Data Source [id number] 04/15/2021 02:32:00 PM EST [facility] Name Value Range Interpretation Code Description Data Yennifer rce(s) Supporting Document(s) Iron [Mass/volume] in Serum or Plasma 150 ug/dL 50-170 N [facility] Iron values may be falsely elevated in s honey samples frompatients treated with anticoagulants (e.g., hemodialysispatients) Iron binding capacity [Moles/volume] in Serum or Plasma 31 20 -55 N [facility] Iron binding capacity [Mass/volume] in Serum or Plasma 489 ug/dL 250-450 Above high normal [facility] ID Date Data Source [id number] 04/15/2021 02:12:00 PM [facility] Name Value Range Interpretation Code Description Data Yennifer rce(s) Supporting Document(s) Reticulocytes/100 erythrocytes in Blood by Automated count 1.3 % 0.39-1.8 N [facility] ID Date Data Source [id number] 04/15/2021 02:32:00 PM [facility] Name Value Range Interpretation Code Description Data Yennifer rce(s) Supporting Document(s) Ferritin [Mass/volume] in Serum or Plasma 11 ng/mL 10-291 N [facility] ID Date Data Source [id number] 04/13/2021 12:00:00 AM [facility] Name Value Range Interpretation Code Description Data Yennifer rce(s) Supporting Document(s) SARS-CoV-2 (COVID-19) RNA [Presence] in Respiratory specimen by ZAFAR with probe detection Not Detected [facility] This lab was ordered by [facility] and reported by [facility]. ID Date Data Source [id number] 03/22/2021 09:32:00 AM EDT [facility] ([facility]) Name Value Range Interpretation Code Description Data Yennifer rce(s) Supporting Document(s) Cobalamin (Vitamin B12) [Mass/volume] in Serum or Plasma 621 pg/mL 2 47-911 [facility] ([facility]) VITAMIN B12 NORMAL RANGE NORMAL 247 - 911 PG/ML INDETERMINATE 211 - 246 PG/ML DEFICIENT LESS THAN 211 PG/ML ID Date Data Source [id number] 03/22/2021 09:31:00 AM EDT [facility] ([facility]) Name Value Range Interpretation Code Description Data Yennifer rce(s) Supporting Document(s) Thyroxine (T4) free [Mass/volume] in Serum or Plasma 0.93 ng/dL 0.76- 1.46 [facility] ([facility]) Thyrotropin [Units/volume] in Serum or Plasma by Detec tion limit <= 0.05 mIU/L 0.047 uIU/ML 0.358-3.740 [facility] ([facility]) ID Date Data Source [id number] 03/15/2021 02:05:00 PM EDT [facility] ADD ON TO BLOOD FROM 03/12/21 ADD ON TO BLOOD FROM 03/12/21 Name Value Range Interpretation Code Description Data Yennifer rce(s) Supporting Document(s) Iron [Mass/volume] in Serum or Plasma 25 ug/dL 50-170 Below low normal [facility] Iron values may be falsely elevated in s honey samples frompatients treated with anticoagulants (e.g., hemodialysispatients) Iron binding capacity [Moles/volume] in Serum or Plasma 5 20-55 Below low normal [facility] Iron binding capacity [Mass/volume] in Serum or Plasma 471 ug/dL 250-450 Above high normal [facility] ID Date Data Source [id number] 03/15/2021 02:05:00 PM EDT [facility] ADD ON TO BLOOD FROM 03/12/21 ADD ON TO BLOOD FROM 03/12/21 Name Value Range Interpretation Code Description Data Yennifer rce(s) Supporting Document(s) Ferritin [Mass/volume] in Serum or Plasma 8 ng/mL 10-291 Below low normal [facility] ID Date Data Source [id number] 03/12/2021 02:02:00 PM EDT [facility] Name Value Range Interpretation Code Description Data Yennifer rce(s) Supporting Document(s) Amylase [Enzymatic activity/volume] in Serum or Plasma 61 U/L 30- 118 N [facility] ID Date Data Source [id number] 03/12/2021 02:02:00 PM EDT [facility] Name Value Range Interpretation Code Description Data Yennifer rce(s) Supporting Document(s) Lipase [Enzymatic activity/volume] in Serum or Plasma 132 U/L 73-3 93 N [facility] ID Date Data Source [id number] 03/12/2021 08:24:00 AM EDT [place] ([facility]) Name Value Range Interpretation Code Description Data Yennifer rce(s) Supporting Document(s) Reported Physicians See Note Reported Physici ans [place] ([facility]) Note: Reported Physicians:Ordering: Pedro Luis JoeidiAttending: Tatiana Toledo To: Marv Anaya ID Date Data Source [id number] 03/12/2021 08:24:00 AM EDT [place] ([facility]) Name Value Range Interpretation Code Description Data Yennifer rce(s) Supporting Document(s) Ferritin [Mass/volume] in Serum or Plasma 8 NanoGramsPerMilliLiter_[Mass_Concentration_Units] Below low normal Ferrit[facility] ([facility]) Note: Responsible Observer: Ferritin Angelito ritin 600.1005 (D) Notes [TIMP] See Note MARTIN ADHIKARI ([facility]) Note: ADD ON TO BLOOD FROM 03/12/21 ID Date Data Source [id number] 03/12/2021 08:24:00 AM [facility] ([facility]) Name Value Range Interpretation Code Description Data Yennifer rce(s) Supporting Document(s) Reported Physicians See Note Reported Physici gale [place] ([facility]) Note: Reported Physicians:Ordering: Srinivasan bear, Pedro LuisidiAttending: Tatiana Toledo To: Marv Anaya ID Date Data Source [id number] 03/12/2021 08:24:00 AM [facility] ([facility]) Name Value Range Interpretation Code Description Data Yennifer rce(s) Supporting Document(s) Iron binding capacity [Moles/volume] in Serum or Plasma 5 Below low normal [facility] [place] ([facility]) Note: Responsible Observer: Iron Saturat ion Iron Saturation 400.9010 (F) Iron binding capacity [Mass/volume] in Serum or Plasma 471 microgram_per_deciliter Above high normal TIBC [facility] ([facility]) Note: Responsible Observer: TIBC Total I kim Binding Capacity 400.9015 (A) Iron [Mass/volume] in Serum or Plasma 25 Below low normal Iron [facility] ([facility]) Note: Iron values may be falsely elevate d in serum samples frompatients treated with anticoagulants (e.g., hemodialysispatients)Responsible Observer: Iron Level Iron Level 400.9002 (A) Notes [TIMP] See Note MARTIN ZEYNEP ([facility]) Note: ADD ON TO BLOOD FROM 03/12/21 ID Date Data Source [id number] 03/12/2021 08:24:00 AM [facility] ([facility]) Name Value Range Interpretation Code Description Data Yennifer rce(s) Supporting Document(s) TSH L uIu/mL Below low normal TSH [place] ([facility]) Note: Test Comment : Flagged as Linear L owResponsible Observer: KM ID Date Data Source [id number] 03/12/2021 08:24:00 AM EDT [place] ([facility]) Name Value Range Interpretation Code Description Data Yennifer rce(s) Supporting Document(s) Hemoglobin A1c/Hemoglobin.total in Blood 5.5 na Hgba1c [place] ([facility]) Note: Responsible Observer: KM ID Date Data Source [id number] 03/12/2021 08:24:00 AM EDT [place] ([facility]) Name Value Range Interpretation Code Description Data Yennifer rce(s) Supporting Document(s) Cholesterol [Moles/volume] in Pericardial fluid 222 mg/dl Above high normal Cholesterol [place] ([facility]) Note: Responsible Observer: KM HDL 70 mg/dl Above high normal HDL [place] ([facility]) Note: Responsible Observer: KM Dir. LDL 121 mg/dl Dir. LDL [place] ([facility]) Note: Responsible Observer: KM Triglycerides 130 mg/dl Triglycerides [place] ([facility]) Note: Responsible Observer: KM ID Date Data Source [id number] 03/12/2021 08:24:00 AM EDT [place] ([facility]) Name Value Range Interpretation Code Description Data Yennifer rce(s) Supporting Document(s) Alkaline Phos 78 IU/L Alkaline Phos [place] ([facility]) Note: Responsible Observer: KM Albumin [Mass/volume] in Blood by Bromocresol purple ( BCP) dye binding method 3.8 g/dl Albumin [place] ([facility]) Note: Responsible Observer: KM ALT 13 IU/L ALT [place] ([facility]) Note: Responsible Observer: KM AST 15 IU/L AST [place] ([facility]) Note: Responsible Observer: KM Urea nitrogen [Moles/volume] in Blood 12 mg/dl Urea Nitrogen [place] ([facility]) Note: Responsible Observer: KM Calcium [Moles/volume] in Urine collected for unspecified durati on 9.1 mg/dl Calcium [place] ([facility]) Note: Responsible Observer: KM Chloride [Moles/volume] in Serum, Plasma or Blood 107 mmol/L Chloride [place] ([facility]) Note: Responsible Observer: KM CO2 23 mmol/L CO2 [place] ([facility]) Note: Responsible Observer: KM Creatinine [Moles/volume] in Vitreous fluid 0.6 mg/dl Creatinine [place] ([facility]) Note: Responsible Observer: KM EGFR - Non AF AM > 60 N/A EGFR - Non AF [facility] Note: Responsible Observer: KM EGFR - AfricanAm > 60 N/A EGFR - AfricanAm [facility] Note: Responsible Observer: KM Glucose [Mass/volume] in Urine collected for unspecified duratio n 111 mg/dl Above high normal Glucose [place] ([facility]) Note: Responsible Observer: KM Sodium [Moles/volume] in Serum, Plasma or Blood 142 mmol/L Sodium [place] ([facility]) Note: Responsible Observer: KM Potassium [Mass/volume] in Blood 4.5 mmol/L Pot assium [place] ([facility]) Note: Responsible Observer: KM Total Bilirubin 0.3 mg/dl Total [facility]irubin [facility] Note: Responsible Observer: KM Total Protein 6.5 g/dl Total Protein [place] ([facility]) Note: Responsible Observer: KM ID Date Data Source [id number] 03/12/2021 08:24:00 AM EDT [place] ([facility]) Name Value Range Interpretation Code Description Data Yennifer rce(s) Supporting Document(s) GRAN# 4.0 /mm3 GRAN# [facility] ([facility]) Note: Responsible Observer: KM HCT 36.7 % Below low normal HCT [place] ([facility]) Note: Responsible Observer: KM GRAN% 74.1 % GRAN% [place] ([facility]) Note: Responsible Observer: KM HGB 11.9 g/dl Below low normal HGB [place] ([facility]) Note: Responsible Observer: KM LY# 1.1 /mm3 Below low normal LY# [facility] ([facility]) Note: Responsible Observer: KM LY% 19.6 % Below low normal LY% [place] ([facility]) Note: Responsible Observer: KM MCH 26.5 pg Below low normal MCH [facility] ([facility]) Note: Responsible Observer: KM MCV 82.1 um3 MCV [facility] ([facility]) Note: Responsible Observer: KM MCHC 32.3 G/DL MCHC [facility] ([facility]) Note: Responsible Observer: KM MID# 0.3 /mm3 MID# [facility] ([facility]) Note: Responsible Observer: KM MID% 6.3 % MID% [facility] ([facility]) Note: Responsible Observer: KM MPV 10.4 um3 MPV [facility] ([facility]) Note: Responsible Observer: KM PLT 232 /mm3 PLT [facility] ([facility]) Note: Responsible Observer: KM RBC 4.48 /mm3 RBC [facility] ([facility]) Note: Responsible Observer: KM RDW 18.3 % Above high normal RDW [facility] ([facility]) Note: Responsible Observer: KM WBC 5.4 /mm3 WBC [facility] ([facility]) Note: Responsible Observer: KM ID Date Data Source [id number] 11/22/2020 10:10:00 AM EDT [facility] Name Value Range Interpretation Code Description Data Yennifer rce(s) Supporting Document(s) SARS-CoV-2 (COVID-19) RNA [Presence] in Respiratory specimen by ZAFAR with probe detection Not Detected [facility] This lab was ordered by [facility] and reported by [employer] ID Date Data Source [id number] 07/27/2020 01:50:00 PM EST [facility] ([facility]) Name Value Range Interpretation Code Description Data Yennifer rce(s) Supporting Document(s) Bilirubin [Presence] in Peritoneal fluid Negative Normal bilirubin [place] ([facility]) Blood [Presence] in Urine by Visual Negative Normal blood [place] ([facility]) nitrites Negative Normal nitrites [place] ([facility]) Leukocytes [#/volume] by Microscopy high power field in Urine sediment collected for unspecified duration Negative Normal [facility] Glucose [Mass/volume] in Urine collected for unspecified duratio n Negative Normal glucose [place] ([facility]) ketone Large Abnormal (applies to non-numeric res ults) ketone [place] ([facility]) Protein [Mass/volume] in Saliva (oral fluid) Negative No rmal protein [place] ([facility]) pH of Vaginal fluid by Test strip 5.0 Normal pH [place] ([facility]) Urobilinogen [Presence] in Urine by Automated test strip .2 Normal urobilinogen [place] ([facility]) Specific gravity of Pericardial fluid by Refractometry 1.015 Normal specific gravity [place] ([facility]) ID Date Data Source [id number] 07/28/2020 01:16:00 PM [facility] Name Value Range Interpretation Code Description Data Yennifer rce(s) Supporting Document(s) Bacteria identified in Urine by Culture [facility] ID Date Data Source [id number] 07/27/2020 01:30:00 PM [facility] ([facility]) Name Value Range Interpretation Code Description Data Yennifer rce(s) Supporting Document(s) Reported Physicians See Note Reported Physici ans [place] ([facility]) Note: Reported Physicians:Ordering: Marv Seaman LAttending: Marv Anaya ID Date Data Source [id number] 07/27/2020 01:30:00 PM [facility] ([facility]) Name Value Range Interpretation Code Description Data Yennifer rce(s) Supporting Document(s) Bacteria identified in Urine by Culture See Note Bacteria Ur Cult [place] ([facility]) Note: NGNo growth.L1NG ID Date Data Source [id number] 05/12/2020 09:21:00 AM EST [facility] ([facility]) Name Value Range Interpretation Code Description Data Yennifer rce(s) Supporting Document(s) Thyroid Stimulating Hormone 0.674 uIU/ML 0.358-3.740 [facility] ([facility]) Free T4 0.90 ng/dL 0.76-1.46 [facility] ([facility]) ID Date Data Source [id number] 05/18/2020 08:23:00 AM [facility] [id number] Technique: BRUSH-SP ATULAPREVIOUS CYTOLOGY: NEGATIVEBody Site: ENDOCERVIX Name Value Range Interpretation Code Description Data Yennifer rce(s) Supporting Document(s) Microscopic observation [Identifier] in Cervix by Cyto stain.thin pre p [facility] ID Date Data Source [id number] 05/08/2020 03:00:00 PM EST [facility] ([facility]) Name Value Range Interpretation Code Description Data Yennifer rce(s) Supporting Document(s) Reported Physicians See Note Reported Physici ans [facility] ([facility]) Note: Reported Physicians:Ordering: Patsy GandaraAttending: Patsy PittsCopchelsea To: Patsy Pitts ID Date Data Source [id number] 05/08/2020 03:00:00 PM EST [facility] ([facility]) Name Value Range Interpretation Code Description Data Yennifer rce(s) Supporting Document(s) Microscopic observation [Identifier] in Cervix by Cyto stain .thin prep See Note Thin Prep Cvx [place] ([facility]) Note: See scanned reportSee scanned repo rtLSee scanned reportResponsible Observer: PAP/HPV -[place] + PAP w HPV-Genotype if Positive [phone] ([facility]) Notes [TIMP] See Note NOTES [facility] ([facility]) Note: [id number] Technique: BR USH-SPATULAPREVIOUS CYTOLOGY: NEGATIVEBody Site: ENDOCERVIX ID Date Data Source [id number] 05/08/2020 01:20:00 PM EST [place] ([facility]) Name Value Range Interpretation Code Description Data Yennifer rce(s) Supporting Document(s) Cholesterol [Moles/volume] in Pericardial fluid 210 mg/dl Above high normal Cholesterol [place] ([facility]) Note: Responsible Observer: KM Dir. LDL 123 mg/dl Dir. LDL [place] ([facility]) Note: Responsible Observer: KM HDL 61 mg/dl Above high normal HDL [place] ([facility]) Note: Responsible Observer: KM Triglycerides 60 mg/dl Triglycerides [place] ([facility]) Note: Responsible Observer: KM ID Date Data Source [id number] 05/08/2020 01:20:00 PM EST [place] ([facility]) Name Value Range Interpretation Code Description Data Yennifer rce(s) Supporting Document(s) Albumin [Mass/volume] in Blood by Bromocresol purple ( BCP) dye binding method 4.3 g/dl Albumin [place] [facility] Note: Responsible Observer: KM Alkaline Phos 73 IU/L Alkaline Phos [place] ([facility]) Note: Responsible Observer: KM ALT 15 IU/L ALT [place] ([facility]) Note: Responsible Observer: KM AST 16 IU/L AST [place] ([facility]) Note: Responsible Observer: KM Urea nitrogen [Moles/volume] in Blood 11 mg/dl Urea Nitrogen [place] ([facility]) Note: Responsible Observer: KM CO2 27 mmol/L CO2 [place] ([facility]) Note: Responsible Observer: KM Chloride [Moles/volume] in Serum, Plasma or Blood 100 mmol/L Chloride [place] ([facility]) Note: Responsible Observer: KM Calcium [Moles/volume] in Urine collected for unspecified durati on 10.2 mg/dl Calcium [place] ([facility]) Note: Responsible Observer: KM Creatinine [Moles/volume] in Vitreous fluid 0.7 mg/dl Creatinine [place] ([facility]) Note: Responsible Observer: KM EGFR - AfricanAm > 60 N/A EGFR - AfricanAm [facility] Note: Responsible Observer: KM Glucose [Mass/volume] in Urine collected for unspecified duration 8 8 mg/dl Glucose [place] ([facility]) Note: Responsible Observer: KM EGFR - Non AF AM > 60 N/A EGFR - Non AF [facility] Note: Responsible Observer: KM Potassium [Mass/volume] in Blood 4.9 mmol/L Pot assium [place] ([facility]) Note: Responsible Observer: KM Sodium [Moles/volume] in Serum, Plasma or Blood 140 mmol/L Sodium [place] ([facility]) Note: Responsible Observer: KM Total Bilirubin 0.5 mg/dl Total Bilirubin [facility]) Note: Responsible Observer: KM Total Protein 7 g/dl Total Protein [place] ([facility]) Note: Responsible Observer: KM ID Date Data Source [id number] 05/04/2020 11:05:00 AM EST [facility] ([facility]) Name Value Range Interpretation Code Description Data Yennifer rce(s) Supporting Document(s) Surgical pathology study Laboratory test result [facility] ([facility]) FINAL DIAGNOSIS A - Colon, polyp @ 30 cm., cold snare polypectomy: Fragments of tubular adenoma. B - Colon, cecum polyp, cold snare polypectomy: Fragments of tubular adenoma. C - Colon, transverse polyps, cold snare polypectomy: Fragments of tubular and tubulovillous adenoma. 05/05/2020 - 1551 CLINICAL DIAGNOSIS Family history colon cancer, patient history of polyps 05/04/2020 - 1530 GROSS DIAGNOSIS A - Received in formalin labeled "colon polyp @ 30 cm" consists of two fragments of ferrell tissue measuring 0.5 x 0.4 x 0.3 cm in aggregate. All in one. B - Received in formalin labeled "cecal polyp" consists of one fragment of ferrell tissue measuring 0.5 x 0.2 x 0.2 cm. All in one. C - Received in formalin labeled "transverse colon polyps" are multiple fragments of ferrell tissue measuring 1.2 x 1.0 x 0.3 cm in aggregate. All in one. -SV 05/04/2020 - 1530 Signed REYNALDO FOSTER MD 05/05/2020 1552 ID Date Data Source [id number] 05/04/2020 07:35:00 AM EST [facility] Name Value Range Interpretation Code Description Data Yennifer rce(s) Supporting Document(s) SARS coronavirus 2 RNA [Presence] in Res piratory specimen by ZAFAR with probe detection [facility] This lab was ordered by [facility] a nd reported by [facility]. ID Date Data Source [id number] 02/25/2020 09:15:00 AM EDT [facility] [address] [place] [address] [phone] NAME SEX PT STATUS ACCOUNT NUMBER AYAH RICHARDSON REG REF [id number] ORDERING PHYSICIAN LOCATION MEDICAL RECORD NO. Patsy Pitts MD MAMMO [id number] ATTENDING PHYSICIAN DATE OF DATE OF EXAM/TIME Patsy Pitts MD 1965 02/19/208 TYPE / EXAM 3D DIG MAMMO SCREEN BILAT REASON FOR EXAM SCREENING LAST CLINICAL BREAST EXAM: 2 years ago FIVE YEAR RISK: 2.3% LIFETIME RISK: 14.5% FAMILY HISTORY OF BREAST CARCINOMA: Sister COMPARISON: September 06, 2016 and March 08, 2013 2D bilateral digital mammogram in the CC and MLO projections was performed with supplemental 3D tomosynthesis of both breasts. FINDINGS: Craniocaudad and oblique lateral views of the breasts were obtained. The breasts are primarily of fat density. Occasional benign type calcifications are seen. There is no dominant mass, suspicious clustered microcalcification or architectural distortion. IMPRESSION: No mammographic evidence of malignancy. Yearly screening recommended. OVERALL FINAL ASSESSMENT OF FINDINGS BI-RADS 2 - Benign findings OVERALL FINAL ASSESSMENT OF THE BREAST COMPOSITION Breast Density Classification: A Description: The breasts are almost entirely fatty. This mammogram was read with the assistance of [employer], an FDA-approved computer-aided detection system for mammography. Reported By Rodger Meneses MD on 02/25/20914 Signed By Rodger Meneses MD on 02/25/20916 Date Time CC: Patsy Pitts MD; Rodger Meneses MD Techn: BAKLE Trans Dt/Tm: Trans by: DT Prt Dt/Tm: 13: Total DLP = 0.00 mGy-cm : Total Radiation Dose = 0.0000 mSv Lifetime Dose: 0 mSv Name Value Range Interpretation Code Description Data Yennifer rce(s) Supporting Document(s) Procedure Social History Code Duration Value Status Description Data Source(s ) Smoking 03/29/2021 12:00:00 AM EDT Patient has never smoked co mpleted Patient has never smoked MED[facility] ([facility]) Smoking 07/06/2020 12:00:00 AM EST Never Smoker completed Never S moker eCW1 ([facility]) Smoking 05/08/2020 04:00:20 PM EST Never smoked tobacco (findi ng) completed Never smoked tobacco (finding) [place] ([facility]) Vital Signs ID Date Data Source UNK Name Value Range Interpretation Code Description Data Source(s) Body mass index (BMI) [Ratio] 30.3 kg/m2 30.3 k g/m2 [place] ([facility]) Systolic blood pressure 142 mm[Hg] 142 mm[Hg] G [place] ([facility]) Heart rate 68 /min 68 /min [place] ([facility]) Respiratory rate 18 /min 18 /min [place] ([facility]) Diastolic blood pressure 72 mm[Hg] 72 mm[Hg] [place] ([facility]) Body height 63 [in_i] 63 [in_i] [place] ([facility]) Body surface area Derived from formula 1.81 m2 1.81 m2 [place] ([facility]) Oxygen saturation in Arterial blood by Pulse oximetry 97 % 97 % [place] ([facility]) Body weight 171.2 [lb_av] 171.2 [lb_av] [facility] Y ([facility]) Systolic blood pressure 152 mm[Hg] 152 mm[Hg] M EDENT ([facility]) Body mass index (BMI) [Ratio] 27.8 kg/m2 27.8 k g/m2 MEDENT ([facility]) Oxygen saturation in Arterial blood by Pulse oximetry 98 % 98 % [facility] ([facility]) Diastolic blood pressure 90 mm[Hg] 90 mm[Hg] [facility] ([facility]) Heart rate 77 /min 77 /min [facility] ([facility]) Body height 65.3 [in_i] 65.3 [in_i] MED[facility] ([facility]) 5'5.30" Body weight 168.44 [lb_av] 168.44 [lb_av] MEDEN T ([facility]) Body weight 165.6 [lb_av] 165.6 [lb_av] [place] ([facility]) Body mass index (BMI) [Ratio] 29.3 kg/m2 29.3 k g/m2 [place] ([facility]) Systolic blood pressure 152 mm[Hg] 152 mm[Hg[facility] Diastolic blood pressure 70 mm[Hg] 70 mm[Hg] [place] ([facility]) Heart rate 60 /min 60 /min [place] ([facility]) Body surface area Derived from formula 1.78 m2 1.78 m2 [place] ([facility]) Oxygen saturation in Arterial blood by Pulse oximetry 97 % 97 % [place] ([facility]) Respiratory rate 18 /min 18 /min [place] ([facility]) Body height 63 [in_i] 63 [in_i] [place] ([facility]) Heart rate 78 /min 78 /min [place] ([facility]) Body height 63 [in_i] 63 [in_i] [place] ([facility]) Diastolic blood pressure 78 mm[Hg] 78 mm[Hg] [place] ([facility]) Systolic blood pressure 148 mm[Hg] 148 mm[Hg] [facility] ([facility]) Systolic blood pressure 170 mm[Hg] 170 mm[Hg] G [facility] ([facility]) Body mass index (BMI) [Ratio] 29.6 kg/m2 29.6 k g/m2 [place] ([facility]) Diastolic blood pressure 92 mm[Hg] 92 mm[Hg] [place] ([facility]) Heart rate 60 /min 60 /min [place] ([facility]) Body weight 167 [lb_av] 167 [lb_av] [place] ([facility]) Body surface area Derived from formula 1.79 m2 1.79 m2 [place] ([facility]) Body height 63 [in_i] 63 [in_i] [place] ([facility]) Body height 66 [in_i] 66 [in_i] [facility] ([facility]) 5'6" Body weight 159.00 [lb_av] 159.00 [lb_av] MEDEN T ([facility]) Systolic blood pressure 127 mm[Hg] 127 mm[Hg] M EDENT ([facility]) Diastolic blood pressure 79 mm[Hg] 79 mm[Hg] [facility] ([facility]) Heart rate 56 /min 56 /min [facility] ([facility]) Body mass index (BMI) [Ratio] 25.7 kg/m2 25.7 k g/m2 [facility] ([facility]) Body weight 72.122 kg 72.122 kg [facility] ([facility]) Body temperature 95.4 [degF] 95.4 [degF] [facility] ([facility]) Body weight 173 [lb_av] 173 [lb_av] eCW1 ([facility]) Body height [in_i] eCW1 ([facility]) Body mass index (BMI) [Ratio] 33.78 kg/m2 33.78 kg/m2 eCW1 ([facility]) Systolic blood pressure 136 mm[Hg] 136 mm[Hg] e CW1 ([facility]) Diastolic blood pressure 70 mm[Hg] 70 mm[Hg] eCW1 ([facility]) Diastolic blood pressure 80 mm[Hg] 80 mm[Hg] MED[facility] ([facility]) Body height 65.3 [in_i] 65.3 [in_i] [facility] ([facility]) 5'5.30" Heart rate 60 /min 60 /min [facility] ([facility]) Body temperature 97.5 [degF] 97.5 [degF] [facility] ([facility]) Body weight 173.50 [lb_av] 173.50 [lb_av] MEDEN T ([facility]) Body mass index (BMI) [Ratio] 28.6 kg/m2 28.6 k g/m2 [facility] ([facility]) Systolic blood pressure 118 mm[Hg] 118 mm[Hg] M EDENT ([facility]) Diastolic blood pressure 78 mm[Hg] 78 mm[Hg] ZEYNEP ([facility]) Heart rate 56 /min 56 /min [place] ([facility]) Body height 63 [in_i] 63 [in_i] [place] ([facility]) Body weight 171 [lb_av] 171 [lb_av] [place] ([facility]) Body mass index (BMI) [Ratio] 30.3 kg/m2 30.3 k g/m2 [place] ([facility]) Body surface area Derived from formula 1.81 m2 1.81 m2 [place] ([facility]) Systolic blood pressure 122 mm[Hg] 122 mm[Hg] G [place] ([facility]) Body height 66 [in_i] 66 [in_i] [facility] ([facility]) 5'6" Body weight 172.00 [lb_av] 172.00 [lb_av] MEDEN T ([facility]) Systolic blood pressure 125 mm[Hg] 125 mm[Hg] M EDENT ([facility]) Diastolic blood pressure 71 mm[Hg] 71 mm[Hg] [facility] ([facility]) Heart rate 67 /min 67 /min [facility] ([facility]) Body mass index (BMI) [Ratio] 27.8 kg/m2 27.8 k g/m2 [facility] ([facility]) Body weight 78.019 kg 78.019 kg [facility] ([facility] Body temperature 96.4 [degF] 96.4 [degF] MED[facility] ([facility])
--- NOTE | 2021-04-21 13:35 | ROOR ---
Patient Name: Zohra Richardson Procedure Date: 04/21/2021 12:48 PM Date of : 1965 Age: 55 Room: [facility] Gender: Female Note Status: Finalized Procedure: Upper Endoscopy + Biopsies Indications: Unexplained iron deficiency anemia, Heartburn Providers: Chino Sims MD Referring MD: Patsy PACE MD Requesting Provider: Medicines: Monitored Anesthesia Care Complications: No immediate complications. Procedure: Pre-Anesthesia Assessment: - The heart rate, respiratory rate, oxygen saturations, blood pressure, adequacy of pulmonary ventilation, and response to care were monitored throughout the procedure. The Endoscope was introduced through the mouth, and advanced to the second part of duodenum. The upper GI endoscopy was accomplished without difficulty. The patient tolerated the procedure well. Findings: The Z-line was regular and was found 35 cm from the incisors. Multiple biopsies were obtained with cold forceps for evaluation to rule out Bill's Esophagus randomly at the gastroesophageal junction. Localized mild inflammation characterized by congestion (edema), erythema and linear erosions was found in the gastric antrum. Biopsies were taken with a cold forceps for Helicobacter pylori testing. The exam of the duodenum was otherwise normal. Impression: - Z-line regular, 35 cm from the incisors. - Mucosal changes suspicious for gastritis. Biopsied. - Multiple biopsies were obtained at the gastroesophageal junction. - The examination was otherwise normal. Recommendation: - Patient has a contact number available for emergencies. The signs and symptoms of potential delayed complications were discussed with the patient. Return to normal activities tomorrow. Written discharge instructions were provided to the patient. - High fiber diet. - Discharge patient to home. - Follow an antireflux regimen. - Continue present medications. - Await pathology results. - Telephone GI clinic for pathology results in 1 week. - Return to referring physician. - The findings and recommendations were discussed with the patient. Procedure Code(s): --- Professional --- 57457, Esophagogastroduodenoscopy, flexible, transoral; with biopsy, single or multiple Diagnosis Code(s): --- Professional --- K31.89, Other diseases of stomach and duodenum D50.9, Iron deficiency anemia, unspecified R12, Heartburn CPT copyright 2019 [employer]. All rights reserved. The codes documented in this report are preliminary and upon impregnating helper review may be revised to meet current compliance requirements. Chino Sims MD Chino Sims MD 04/21/2021 1:34:55 PM Electronically signed by Chino Sims MD Number of Addenda: 0 Note Initiated On: 04/21/2021 12:48 PM Estimated Blood Loss: Estimated blood loss: none.
[2021-04-21] MEDS ORDERED: fentaNYL 100 MCG/2 ML INJECTION (J3010) As Ordered ONE (13:50)
[2021-04-21] MEDS ORDERED: propofoL 500 MG/50 ML VIAL As Ordered ONE (13:50)
--- NOTE | 2021-04-21 13:56 | ROOR ---
Patient Name: Zohra Richardson Procedure Date: 04/21/2021 1:20 PM Date of : 1965 Age: 55 Room: [facility] Gender: Female Note Status: Finalized Procedure: Total Colonoscopy to Cecum + Biopsy Polypectomy Indications: High risk colon cancer surveillance: Personal history of adenoma with villous component, Incidental - Unexplained iron deficiency anemia Providers: Chino Sims MD Referring MD: Patsy PACE MD Requesting Provider: Medicines: Monitored Anesthesia Care Complications: No immediate complications. Procedure: Pre-Anesthesia Assessment: - The heart rate, respiratory rate, oxygen saturations, blood pressure, adequacy of pulmonary ventilation, and response to care were monitored throughout the procedure. The Colonoscope was introduced through the anus and advanced to the cecum, identified by appendiceal orifice and ileocecal valve. The colonoscopy was performed without difficulty. The patient tolerated the procedure well. The quality of the bowel preparation was good. Findings: The perianal and digital rectal examinations were normal. Non-bleeding internal hemorrhoids were found during retroflexion. The hemorrhoids were small and Grade I (internal hemorrhoids that do not prolapse). Two sessile polyps were found in the transverse colon. The polyps were small in size. These polyps were removed with a cold biopsy forceps. Resection and retrieval were complete. The exam was otherwise without abnormality on direct and retroflexion views. Impression: - Non-bleeding internal hemorrhoids. - Two small polyps in the transverse colon, removed with a cold biopsy forceps. Resected and retrieved. - The examination was otherwise normal on direct and retroflexion views. - The exam was otherwise normal to the cecum. Recommendation: - Patient has a contact number available for emergencies. The signs and symptoms of potential delayed complications were discussed with the patient. Return to normal activities tomorrow. Written discharge instructions were provided to the patient. - High fiber diet. - Discharge patient to home. - Continue present medications. - Repeat colonoscopy in 5 years for surveillance. - Return to referring physician. - Await pathology results. - Telephone GI clinic for pathology results in 1 week. - The findings and recommendations were discussed with the patient. Procedure Code(s): --- Professional --- 16310, Colonoscopy, flexible; with biopsy, single or multiple Diagnosis Code(s): --- Professional --- Z86.010, Personal history of colonic polyps K64.0, First degree hemorrhoids K63.5, Polyp of colon CPT copyright 2019 [employer]. All rights reserved. The codes documented in this report are preliminary and upon med aide review may be revised to meet current compliance requirements. Chino Sims MD Chino Sims MD 04/21/2021 1:56:37 PM Electronically signed by Chino Sims MD Number of Addenda: 0 Note Initiated On: 04/21/2021 1:20 PM Estimated Blood Loss: Estimated blood loss: none.
[2021-04-21 14:19] VITALS: BP 118/73
== END 2021-04-21 14:24 | disposition home or self-care (01) ==
LOC: M OPP 11:59
PROVIDERS: ATTEND Internal Medicine Gastroenterology
DX: K63.5 Polyp of colon (principal); K64.0 First degree hemorrhoids; Z86.010 Personal history of colon polyps; Z09 Encounter for follow-up examination after completed treatment for conditions other than malignant neoplasm; Z80.0 Family history of malignant neoplasm of digestive organs; Z83.71 Family history of colonic polyps; D50.9 Iron deficiency anemia, unspecified; K31.89 Other diseases of stomach and duodenum; R12 Heartburn; K21.9 Gastro-esophageal reflux disease without esophagitis; Z79.899 Other long term (current) drug therapy; Z87.891 Personal history of nicotine dependence
CPT/HCPCS: 43239; 45380; 88305; J3010

== ENCOUNTER → 2021-04-23 | Outpatient (CLI) | payer BC ==
[~2021-04-23] MED LIST changes: -NS 1,000 ML IV ONE
--- NOTE | 2021-04-23 08:47 | REP ---
INDICATION: RUQ ABD PAIN COMPARISON: None. TECHNIQUE: Real time brantley scale ultrasound examination using curved array transducer. FINDINGS: Liver is normal in contour, size, and echogenicity without focal hepatic lesions identified. Incidental 6 mm cyst in the inferior aspect of the left lobe. Main portal vein is normal at 11 mm diameter. Pancreas is incompletely evaluated due to interposed bowel gas. The gallbladder is normal and without gallstones, wall thickening, or pericholecystic fluid. No biliary ductal dilatation is appreciated and the common bile duct measures 6.4 mm diameter. Right kidney is normal in reniform shape without hydronephrosis and measures 11.4 x 5.3 x 5.0 cm. No ascites in the visualized right upper quadrant. IMPRESSION: Essentially normal limited right upper quadrant ultrasound <Electronically signed by Humberto Torres > 04/23/21 [id number]
== END ==
LOC: M RAD 08:09
PROVIDERS: ATTEND Internal Medicine Gastroenterology
DX: R10.9 Unspecified abdominal pain (principal)

== ENCOUNTER → 2022-06-16 | Outpatient (CLI) | payer OTHER ==
[~2022-06-16] MED LIST changes: -OMEP-221 PO; +OMEP40CA5 PO
[2022-06-16 11:17] LABS: FREE T4 1.34 NG/DL (0.89-1.76); THYROID STIMULATING HORMONE 0.018 uIU/ML (0.55-4.78)
== END ==
LOC: M PLALAB 08:29
PROVIDERS: ATTEND Internal Medicine Endocrinology, Diabetes & Metabolism
DX: E89.0 Postprocedural hypothyroidism (principal)

== ENCOUNTER 2023-02-15 17:03 | Emergency (ER) | payer OTHER ==
[2023-02-15 18:20] LABS: BASO % 0.3 % (0.0-1.0); EOS % 0.5 % (0.0-3.0); HEMOGLOBIN 15.1 g/dl (12.0-15.5); LYMPH # 1.6 10^3/uL (1.5-5.0); LYMPH % 21.2 % (24.0-44.0); MEAN CORPUSCULAR HEMOGLOBIN 30.9 pg (27.0-33.0); MEAN CORPUSCULAR HGB CONC 33.6 g/dl (32.0-36.5); MONO # 0.8 10^3/uL (0.0-0.8); MONO % 10.6 % (2.0-8.0); NEUTROPHILS # 5.1 10^3/uL (1.5-8.5); NEUTROPHILS % 67.1 % (36.0-66.0); PLATELET COUNT, AUTOMATED 227 10^3/uL (150-450); RED BLOOD COUNT 4.89 10^6/uL (4.00-5.40); WHITE BLOOD COUNT 7.7 10^3/uL (4.0-10.0)
[2023-02-15 18:35] LABS: LIPASE 68 U/L (12-53)
[2023-02-15 18:38] LABS: ALBUMIN 3.7 G/DL (3.2-5.2); ALKALINE PHOSPHATASE 94 U/L (46-116); ALT/SGPT 20 U/L (7.0-40); AST/SGOT < 8 U/L (<34); BILIRUBIN,DIRECT 0.1 MG/DL (<0.4); BILIRUBIN,TOTAL 0.4 MG/DL (0.3-1.2); BLOOD UREA NITROGEN 13 MG/DL (9-23); CALCIUM LEVEL 9.9 MG/DL (8.5-10.1); CARBON DIOXIDE LEVEL 28 MMOL/L (20-31); CHLORIDE LEVEL 104 MMOL/L (98-107); GLOMERULAR FILTRATION RATE > 60.0 (>51); GLUCOSE, FASTING 93 MG/DL (60-100); POTASSIUM SERUM 4.1 MMOL/L (3.5-5.1); SODIUM LEVEL 140 MMOL/L (136-145)
[2023-02-15 20:12] LABS: APPEARANCE, URINE CLEAR (CLEAR); BACTERIA, URINE AUTO NEGATIVE (NEGATIVE); BILIRUBIN, URINE AUTO NEGATIVE (NEGATIVE); BLOOD, URINE BLOOD 2+ (NEGATIVE); COLOR, URINE YELLOW (YELLOW); GLUCOSE, URINE (UA) AUTO NEGATIVE (NEGATIVE); KETONE, URINE AUTO TRACE mg/dL (NEGATIVE); LEUKOCYTE ESTERASE, URINE AUTO NEGATIVE (NEGATIVE); NITRITE, URINE AUTO NEGATIVE (NEGATIVE); PROTEIN, URINE AUTO NEGATIVE (NEGATIVE); RBC, URINE AUTO 2 /HPF (0-3); SPECIFIC GRAVITY URINE AUTO 1.014 (1.002-1.035); SQUAMOUS EPITHELIAL CELL UR AU 0 /HPF (0-6); UROBILINOGEN, URINE AUTO 0.2 mg/dL (0.0-2.0); WBC, URINE AUTO 2 /HPF (0-3)
[2023-02-15] MEDS ORDERED: SUCRALFATE 1 GM TAB PO ONE (21:35)
[2023-02-15] MEDS ORDERED: HYOSCYAMINE SULFATE 0.125 MG SUBL TABLET PO ONE (21:35)
[2023-02-15] MEDS ORDERED: ONDANSETRON 4MG 2ML VIAL IV ONE (21:35)
[2023-02-15] MEDS ORDERED: MAALOX 30 ML SUSP *UDC PO ONE (21:35)
[2023-02-15] MEDS ORDERED: NS 1,000 ML IV ONE (21:35)
[2023-02-15] MEDS ORDERED: PANTOPRAZOLE 40MG VIAL IV ONE (21:35)
[2023-02-15] MEDS ORDERED: ISOVUE-370 76% 100ML VIAL As Ordered ONE (22:02)
[2023-02-15 22:47] LABS: CK-MB VALUE MASS < 1.0 NG/ML (<3.6)
[2023-02-15 22:48] LABS: CPK CREATINE PHOSPHOKINASE 39 U/L (34-145); MB/CK RELATIVE INDEX 2.56 (< OR =4)
[2023-02-15] MEDS ORDERED: KETOROLAC 30 MG/ML 1ML VIAL IV ONE (23:40)
[2023-02-15 23:50] VITALS: BP 131/67; TEMP 98.7; O2SAT 96
== END 2023-02-15 23:57 | disposition home or self-care (01) ==
LOC: M ED 17:03
DX: R10.13 Epigastric pain (principal); R74.8 Abnormal levels of other serum enzymes; E03.9 Hypothyroidism, unspecified; Z79.890 Hormone replacement therapy; Z79.899 Other long term (current) drug therapy
CPT/HCPCS: 74177; 80048; 80076; 81001; 82550; 82553; 83690; 84484; 85025; 93005; 96361; 96374; 96375; 99284; C9113; J1885; J2405; Q9967

== ENCOUNTER → 2023-06-14 | Outpatient (CLI) | payer OTHER ==
[2023-06-14 16:10] LABS: FREE T4 1.18 NG/DL (0.89-1.76); THYROID STIMULATING HORMONE 0.104 uIU/ML (0.55-4.78)
== END ==
LOC: M PLALAB 12:45
PROVIDERS: ATTEND Nurse Practitioner Family
DX: E89.0 Postprocedural hypothyroidism (principal)

== ENCOUNTER → 2023-12-06 | Outpatient (CLI) | payer OTHER ==
[2023-12-06 14:42] LABS: FREE T4 1.41 NG/DL (0.89-1.76); THYROID STIMULATING HORMONE 0.019 uIU/ML (0.55-4.78)
== END ==
LOC: M PLALAB 10:28
PROVIDERS: ATTEND Nurse Practitioner Family
DX: E89.0 Postprocedural hypothyroidism (principal)

== ENCOUNTER → 2024-05-14 | Outpatient (CLI) | payer OTHER ==
[2024-05-14 15:34] LABS: FREE T4 1.36 NG/DL (0.89-1.76); THYROID STIMULATING HORMONE 0.406 uIU/ML (0.55-4.78)
== END ==
LOC: M PLALAB 12:07
PROVIDERS: ATTEND Nurse Practitioner Family
DX: E89.0 Postprocedural hypothyroidism (principal)

== ENCOUNTER 2024-09-25 07:09 | Day surgery (SDC) | payer OTHER ==
[~2024-09-25] VITALS: Ht 167.6 cm; Wt 76.0 kg
[~2024-09-25 07:09] MED LIST changes: +IRON65TA2 PO; +LIDOCAINE 2% 100MG/5ML SDV (FOR ANES.) As Ordered ONE; +propofoL 200 MG/20 ML VIAL As Ordered ONE
[2024-09-25 08:26] VITALS: TEMP 97.2
[2024-09-25 08:49] VITALS: BP 124/64; O2SAT 99
== END 2024-09-25 09:06 | disposition home or self-care (01) ==
LOC: M OPP 07:09
PROVIDERS: ATTEND Internal Medicine Gastroenterology
DX: D12.6 Benign neoplasm of colon, unspecified (principal); K57.30 Diverticulosis of large intestine without perforation or abscess without bleeding; K64.0 First degree hemorrhoids; Z86.0100 Personal history of colon polyps, unspecified; Z79.899 Other long term (current) drug therapy; Z87.891 Personal history of nicotine dependence